=== PATIENT | female | born 1950 | race Caucasian/White ===

== ENCOUNTER 2024-08-04 10:09 | Inpatient (IN) ==
--- NOTE | 2024-08-04 10:34 | Emergency Department Note ---
Impression & Plan Vertigo ADMIT ED Provider Note HPI: History obtained from patient. The patient is a very pleasant 74-year-old female who presents the emergency department with a chief complaint of dizziness. Patient states for the last several days she has felt "off". She states that she is unsure how to describe this any further. Patient states this morning for the first time she experienced dizziness when she woke up, she states that the room was "spinning". Patient states that this did seem to improve throughout the neck several hours however she continued to feel abnormal and therefore came to the ER to be assessed. Patient denies any nausea or vomiting, on arrival here to the ED the patient does not display any obvious focal deficits, her blood pressure is elevated at 205/85 but she is otherwise hemodynamically stable and in no acute distress. ROS: - Per HPI Differential Diagnosis: Peripheral vertigo, posterior circulation stroke/central vertigo, hypertensive encephalopathy/headache, intracranial hemorrhage, tension headache, amongst other potential pathologies. *Outpatient medications and allergy history reviewed. PE: General: Alert HEENT: Normocephalic, trachea midline Eyes: Extraocular eye movement is intact, no scleral erythema Pulmonary: Clear to auscultation bilaterally, no wheezing Cardio: Regular rate and rhythm GI: Abdomen is soft to palpation : No suprapubic tenderness MSK: No evidence of trauma or malformation of the extremities, no edema Skin: No evidence of rash Neuro: Alert, no focal deficits, no ataxia on buvqwv-vo-wkvs testing bilaterally, symmetrical facial movements are appreciated Psychiatric: Cooperative INDEPENDENT INTERPRETATIONS: residential monitor: (As interpreted by myself): - An order was placed for continuous cardiac monitoring - Patient was noted to be in sinus rhythm with a rate of 85 EKG: (As interpreted by myself): Rate: 89 Rhythm: Normal sinus rhythm Intervals: Within normal limits ST changes: No ST elevation Time: 1032 Chest x-ray: (As interpreted by myself): No acute disease Interventions provided in ED: -IV fluid bolus, meclizine, IV labetalol Medical Decision Making: IV was established and lab work obtained, patient was placed on surveillance monitor. Lab work shows no leukocytosis, hemoglobin is stable at 16.2, platelet count is normal, CMP does not show any evidence of any critical findings. Blood glucose level is 202, troponin is negative. Chest x-ray does not show any evidence of acute disease, CT angiography of the head and neck were obtained and did not show any evidence of any large vessel occlusion/stroke or evidence of intracranial hemorrhage. On reevaluation the patient remains hypertensive, she was ordered a dose of IV labetalol. Upon multiple attempt to ambulate to the bathroom the patient required assistance and stated that she still felt lightheaded and dizzy. Given this I do feel that she should be admitted to the hospital for further workup and management. Patient has been symptomatic overall for the past 4 days. I would not consider her a candidate for any aggressive therapy should this be a stroke such as lysis or thrombectomy. I discussed the patient's presentation with the on-call hospitalist for [facility], Dr. Rowley, and the patient was placed for admission in stable condition. Consultants/Discussions held with other healthcare providers: -Hospitalist, Dr. Rowley Disposition discussion held by myself with: -Patient and patient's at the bedside Diagnosis: 1. Vertigo, acute, intractable 2. Hypertensive urgency, acute Disposition: Admission Santosh Dale DO Emergency Medicine Past Med/Surg History Problem List (Updated 08/04/24 @ 14:59 by Santosh Dale DO) Hypertensive urgency Vertigo (Acute) Medical History (Updated 08/04/24 @ 14:59 by Santosh Dale DO) DM (diabetes mellitus), type 2 Fracture of orbital floor, blow-out, right, closed Arthritis Irritable bowel syndrome Obesity Ovarian dysfunction Carpal tunnel syndrome CRP elevated Fatty liver Diverticulosis of colon Metabolic syndrome Arterial ischemic stroke, chronic Limb pain Liver function test abnormality (04/09/12) Near syncope (04/09/12) Neck pain Transient ischemic attack Hypertension High cholesterol No significant family history No significant medical problems Surgical History H/O: hysterectomy (04/09/12) Hx of tonsillectomy (04/09/12) S/P cholecystectomy S/P hysterectomy Family History Aunt Breast cancer Diabetes Mother Cancer Social History Smoking Status: Never smoker Hx Alcohol Use: No Hx Substance Use: No Preferred Language: Georgian marital status: Feels Safe at Home: Yes Allergies Allergies Allergy/AdvReac Type Severity Reaction Status Date / Time Cipro Allergy Intermediate UNKNOWN Verified 04/09/12 10:34 ciprofloxacin Allergy Intermediate Rash Verified 04/13/20 11:04 felodipine Allergy Intermediate HOT FLASHES Verified 04/13/20 11:04 hydralazine Allergy Intermediate HOT FLASHES Verified 04/13/20 11:04 Penicillins Allergy Intermediate Rash Verified 04/13/20 11:04 Sulfa (Sulfonamide Allergy Intermediate Rash Verified 04/13/20 11:04 Antibiotics) amoxicillin Allergy Verified 04/18/20 10:08 simvastatin Allergy Rash Unverified 04/13/20 11:04 Home Meds Home Medications Medication Instructions Recorded Confirmed amlodipine 10 mg tablet 10 mg PO HS 06/11/18 08/04/24 empagliflozin 25 mg tablet 25 mg PO QAM 06/11/18 08/04/24 (Jardiance) losartan 100 mg tablet 100 mg PO QAM 06/11/18 08/04/24 metformin 500 mg tablet 1,000 mg PO BIDM 06/11/18 08/04/24 Beatrice Xl 2 cap PO QAM 10/10/19 08/04/24 dqloidvn-jkkc-stsxb acid 200 1 tab PO QAM 10/10/19 08/04/24 mcg-herbal no.293 37.5 mg chewable tablet (Alive Women's Gummy Vitamin) aspirin 81 mg tablet,delayed 81 mg PO QAM 04/13/20 08/04/24 release diclofenac sodium 1 % topical gel 2 g topical DIRECTED PRN joint 04/13/20 08/04/24 pain atorvastatin 10 mg tablet 10 mg PO .Q OTHER DAY 08/04/24 08/04/24 dulaglutide 3 mg/0.5 mL 3 mg subcut WK 08/04/24 08/04/24 subcutaneous pen injector (Trulicity) metoprolol succinate 25 mg 25 mg PO DAILY 08/04/24 08/04/24 tablet,extended release 24 hr Results & Data (ED) Vital Signs Vital Signs - 24 hr 08/04/24 10:12 08/04/24 10:45 08/04/24 14:13 Temperature 36.8 C Temperature Source Skin Pulse Rate 97 H 87 Pulse Rate [Apical] 88 Respiratory Rate 18 20 Respiratory Effort / Characteristics Respiratory Depth Normal Respiratory Pattern Blood Pressure 205/85 H Blood Pressure [Right Arm] 192/88 H Blood Pressure Mean 125 Blood Pressure Mean [Right Arm] 122 Pulse Oximetry 96 96 Oxygen Delivery Method Room Air Room Air Sepsis Recent Fever Within 48 Hours No Sepsis New/Unexplained Change in Mental Status No Sepsis Action Taken by Nursing No Action Required 08/04/24 14:14 08/04/24 14:47 Temperature Temperature Source Pulse Rate 88 Pulse Rate [Apical] 79 Respiratory Rate 20 Respiratory Effort / Characteristics Non-Labored Spontaneous Respiratory Depth Normal Respiratory Pattern Regular Blood Pressure Blood Pressure [Right Arm] 160/75 H Blood Pressure Mean Blood Pressure Mean [Right Arm] 103 Pulse Oximetry 96 Oxygen Delivery Method Room Air Sepsis Recent Fever Within 48 Hours Sepsis New/Unexplained Change in Mental Status Sepsis Action Taken by Nursing Laboratory Data 08/04/24 10:49 08/04/24 10:49 Lab Results 08/04/24 08/04/24 Range/Units 10:15 10:49 WBC 9.43 (4.8-10.8) K/ul RBC 5.19 (4.20-5.40) M/uL Hgb 16.2 H (12.0-16.0) g/dl Hct 47.3 H (37.0-47.0) % MCV 91.1 (80.0-100.0) fL MCH 31.2 (25.0-34.0) pg MCHC 34.2 (32.0-36.0) g/dL RDW Std Deviation 44.8 (36.4-46.3) fL RDW Coeff of Chaya 13.2 (11.5-14.5) % Plt Count 205 (130-400) K/uL MPV 9.4 (9.4-12.4) fL Immature Gran % (Auto) 0.3 % Neut % (Auto) 69.1 % Lymph % (Auto) 23.5 % Kimble % (Auto) 5.1 % Eos % (Auto) 1.6 % Baso % (Auto) 0.4 % Neut # (Auto) 6.51 H (1.40-6.50) K/uL Lymph # (Auto) 2.22 (1.20-3.40) K/uL Kimble # (Auto) 0.48 (0.11-0.59) K/uL Eos # (Auto) 0.15 (0.00-0.50) K/uL Baso # (Auto) 0.04 (0.00-0.20) K/uL Immature Gran # (Auto) 0.03 (0.01-0.20) K/uL Sodium 140 (136-145) mmol/L Potassium 4.3 (3.5-5.1) mmol/L Chloride 108 H (98-107) mmol/L Carbon Dioxide 23 (21-32) mmol/L Anion Gap 9 (3-11) BUN 18 (6-23) mg/dl Creatinine 0.68 (0.6-1.2) mg/dl Est Cr Clr Drug Dosing 80.5 ml/min eGFR 90.77 BUN/Creatinine Ratio 26.5 H (10-20) Glucose 202 H (70-99(Fasting)) mg/dl POC Glucose 222 H (70-99) mg/dl Calcium 9.5 (8.6-10.3) mg/dl Total Bilirubin 0.5 (0.2-1.0) mg/dl AST 16 (13-39) U/L ALT 21 (7-52) U/L Alkaline Phosphatase 59 (34-104) U/L Troponin I High Sens < 2.3 (0-14) pg/ml Total Protein 7.5 (6.0-8.3) gm/dl Albumin 4.6 (3.4-5.0) gm/dl Globulin 2.9 (2.5-4.0) gm/dl Albumin/Globulin Ratio 1.6 (0.9-2) Lipase 31 (11-82) U/L Administered Medications Discontinued Medications Aspirin (Aspirin Chew 324 Mg) 324 mg PO NOW STA Stop: 08/04/24 13:52 Last Admin: 08/04/24 14:01 Dose: 324 mg Documented By: CAP Sodium Chloride (Nss) 1,000 mls @ 999 mls/hr IV .Q1H1M ONE Stop: 08/04/24 11:31 Last Infusion: 08/04/24 13:06 Dose: Infused Documented By: Admin: 08/04/24 10:56 Dose: 999 mls/hr Documented By: CARIDAD Ioversol (Optiray 320 125ml) 119 ml IV ONCE ONE Stop: 08/04/24 12:11 Last Admin: 08/04/24 12:11 Dose: 119 ml Documented By: BRLuis F Labetalol HCl (Labetalol Hcl Iv 5 Mg/Ml 20ml) 10 mg IV NOW STA Stop: 08/04/24 14:00 Last Admin: 08/04/24 14:14 Dose: 10 mg Documented By: CARIDAD Meclizine HCl (Meclizine Hcl 25 Mg Tab) 25 mg PO NOW STA Stop: 08/04/24 10:32 Last Admin: 08/04/24 10:56 Dose: 25 mg Documented By: CARIDAD Imaging Data Radiologist's Impression: Chest X-Ray 08/04/24 10:17 XR chest 1V portable CLINICAL HISTORY: Hypertension. COMPARISON STUDY: Chest radiograph April 13, 2020. FINDINGS: Lung volumes are normal. Lungs are clear. There is no pneumothorax or pleural effusion. Cardiomegaly is unchanged. Mediastinal contours are normal. There is no evidence for pulmonary edema. IMPRESSION: No acute cardiopulmonary findings. No change in appearance of the chest. ACT 112: Negative or not required by law. Electronically signed by: Colt Frazier M.D. 08/04/2024 11:07 AM Head CTA 08/04/24 10:30 CT angio head wo/w CLINICAL HISTORY: dizzy/vertigo COMPARISON STUDY: MRI of the brain February 03, 2014. Head CT April 23, 2020. MRA of the head April 09, 2012. TECHNIQUE: Unenhanced and arterial phase imaging of the head was performed. Intravenous injection of 119 cc of Optiray 320 IV was uneventful. Sagittal and coronal reformats were viewed as well as maximal intensity projections on an independent 3-D workstation. A dose lowering technique was utilized adhering to the principles of ALARA. FINDINGS: No acute intracranial hemorrhage, midline shift or mass effect is present. Ventricular system is unremarkable. Basal cisterns are patent. There are no findings to suggest acute dural sinus thrombosis or acute territorial infarct. Bilateral M1 and M2 segments are patent. 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 There is persistence of the left posterior cerebral artery. Left vertebral artery is diminutive on a congenital basis. Basilar artery is patent. No intracranial vessel occlusion is identified. IMPRESSION: 1. No acute intracranial findings. 2. No intracranial vessel occlusion. No intracranial aneurysm. ACT 112: Negative or not required by law. Electronically signed by: Colt Frazier M.D. 08/04/2024 12:38 PM Neck CTA 08/04/24 10:30 CT ANGIOGRAPHY OF THE NECK WITH CONTRAST CLINICAL HISTORY: dizzy/vertigo COMPARISON STUDY: Carotid ultrasound November 26, 2013. Technique: CT angiography of the carotid and vertebral arteries was obtained using Optiray and 3D reconstruction on an independent workstation. NASCET criteria was utilized. Automated exposure control was utilized for the study. A dose lowering technique was utilized adhering to the principles of ALARA. Findings: Visualized portions of the lung apices are unremarkable. Is no cervical lymphadenopathy. There are no cervical spine fractures. The bilateral common carotid, cervical internal carotid and vertebral arteries are patent. The right vertebral artery is dominant. The left vertebral artery is diminutive on a congenital basis. There is mild plaque within the carotid bifurcations without stenosis. IMPRESSION: 1. No stenosis or dissection within the bilateral common carotid, cervical internal carotid or vertebral arteries. 2. 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 Dominant, patent right vertebral artery. ACT 112: Negative or not required by law. Electronically signed by: Colt Frazier M.D. 08/04/2024 12:32 PM Discharge Plan Visit Data Chief Complaint: Hypertension Stated Complaint: HYPERGLYCEMIA, HIGH BP, DIZZY ED Provider: Santosh Dale Discharge Problem: Vertigo Forms Stand Alone Forms: My [facility] Prescriptions Prescriptions: No Action Alive Women's Gummy Vitamin 200 mcg- 37.5 mg Tablet,Chewable 1 tab PO QAM Rx Instructions: 08/04-otc unable to verify Beatrice Xl 2 cap PO QAM Rx Instructions: 08/04-otc unable to verify aspirin 81 mg Tablet,Delayed Release (Dr/Ec) 81 mg PO QAM Rx Instructions: 08/04-otc unable to verify diclofenac sodium 1 % gel 2 g TOPICAL DIRECTED PRN (Reason: joint pain) Rx Instructions: 08/04-otc unable to verify/no fill history metformin 500 mg Tablet 1,000 mg PO BIDM amlodipine 10 mg Tablet 10 mg PO HS losartan 100 mg Tablet 100 mg PO QAM Jardiance 25 mg Tablet 25 mg PO QAM atorvastatin 10 mg tablet 10 mg PO .Q OTHER DAY metoprolol succinate 25 mg tablet extended release 24 hr 25 mg PO DAILY Trulicity 3 mg/0.5 mL pen injector 3 mg subcut WK Rx Instructions: Wednesdays Referrals Referrals: Virgen Woodard MD [Primary Care Provider] -
[2024-08-04] MEDS: MECLIZINE HCL 25 MG TAB PO STA (10:56)
[2024-08-04] MEDS: SODIUM CHLORIDE 0.9% 1,000 ML IV ONE (10:56)
--- NOTE | 2024-08-04 11:08 | XRay Report ---
XR chest 1V portable CLINICAL HISTORY: Hypertension. COMPARISON STUDY: Chest radiograph April 13, 2020. FINDINGS: Lung volumes are normal. Lungs are clear. There is no pneumothorax or pleural effusion. Car diomegaly is unchanged. Mediastinal contours are normal. There is no evidence for pulmonary edema. IMPRESSION: No acute cardiopulmonary findings. No change in appearance of the chest. ACT 112: Negative or not required by law. Electronically signed by: Colt Frazier M.D. 08/04/2024 11:07 AM
[2024-08-04 11:12] LABS: Basophils # (auto) 0.04 K/uL (0.00-0.20); Basophils % (auto) 0.4 %; Eosinophils # (auto) 0.15 K/uL (0.00-0.50); Eosinophils % (auto) 1.6 %; Hematocrit (blood only) 47.3 % (37.0-47.0); Hemoglobin 16.2 g/dl (12.0-16.0); Immature Granulocytes # (auto) 0.03 K/uL (0.01-0.20); Immature Granulocytes % (auto) 0.3 %; Lymphocytes # (auto) 2.22 K/uL (1.20-3.40); Lymphocytes % (auto) 23.5 %; Mean Corpuscular Hemoglobin 31.2 pg (25.0-34.0); Mean Corpuscular Hgb Conc 34.2 g/dL (32.0-36.0); Mean Corpuscular Volume 91.1 fL (80.0-100.0); Mean Platelet Volume 9.4 fL (9.4-12.4); Monocytes # (auto) 0.48 K/uL (0.11-0.59); Monocytes % (auto) 5.1 %; Neutrophils # (auto) 6.51 K/uL (1.40-6.50); Neutrophils % (auto) 69.1 %; Platelet Count 205 K/uL (130-400); RDW Coefficient of Variation 13.2 % (11.5-14.5); RDW Standard Deviation 44.8 fL (36.4-46.3); Red Blood Count 5.19 M/uL (4.20-5.40); White Blood Count 9.43 K/ul (4.8-10.8)
[2024-08-04 11:20] LABS: Alanine Aminotransferase 21 U/L (7-52); Albumin Globulin Ratio 1.6 (0.9-2); Albumin Level 4.6 gm/dl (3.4-5.0); Alkaline Phosphatase 59 U/L (34-104); Anion Gap 9 (3-11); Aspartate Aminotransferase 16 U/L (13-39); BUN Creatinine Ratio 26.5 (10-20); Bilirubin,Total 0.5 mg/dl (0.2-1.0); Blood Urea Nitrogen 18 mg/dl (6-23); Calcium 9.5 mg/dl (8.6-10.3); Carbon Dioxide 23 mmol/L (21-32); Chloride 108 mmol/L (98-107); Creatinine Clr Calc Pharmacy 80.5 ml/min; Globulin 2.9 gm/dl (2.5-4.0); Glucose 202 mg/dl (70-99(Fasting)); Lipase 31 U/L (11-82); Potassium 4.3 mmol/L (3.5-5.1); Sodium 140 mmol/L (136-145); Total Protein 7.5 gm/dl (6.0-8.3)
[2024-08-04 11:26] LABS: Troponin I High Sensitivity < 2.3 pg/ml (0-14)
[2024-08-04] MEDS: OPTIRAY 320 125ml IV ONE (12:11)
--- NOTE | 2024-08-04 12:35 | CT Scan Report ---
CT ANGIOGRAPHY OF THE NECK WITH CONTRAST CLINICAL HISTORY: dizzy/vertigo COMPARISON STUDY: Carotid ultrasound November 26, 2013. Technique: CT angiography of the carotid and vertebral arteries was obtained using Optiray and 3D rec onstruction on an independent workstation. NASCET criteria was utilized. Automated exposure control was utilized for the study. A dose lowering technique was utilized adhering to the principles of ALA RA. Findings: Visualized portions of the lung apices are unremarkable. Is no cervical lymphadenopathy. Th ere are no cervical spine fractures. The bilateral common carotid, cervical internal carotid and vert ebral arteries are patent. The right vertebral artery is dominant. The left vertebral artery is dimin utive on a congenital basis. There is mild plaque within the carotid bifurcations without stenosis. IMPRESSION: 1. No stenosis or dissection within the bilateral common carotid, cervical internal carotid or verteb ral arteries. 2. 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 Dominant, patent right vertebral artery. ACT 112: Negative or not required by law. Electronically signed by: Colt Frazier M.D. 08/04/2024 12:32 PM
--- NOTE | 2024-08-04 12:41 | CT Scan Report ---
CT angio head wo/w CLINICAL HISTORY: dizzy/vertigo COMPARISON STUDY: MRI of the brain February 03, 2014. Head CT April 23, 2020. MRA of the head Decem juan 2011. TECHNIQUE: Unenhanced and arterial phase imaging of the head was performed. Intravenous injection of 119 cc of Optiray 320 IV was uneventful. Sagittal and coronal reformats were viewed as well as daniel l intensity projections on an independent 3-D workstation. A dose lowering technique was utilized adh ering to the principles of ALARA. FINDINGS: No acute intracranial hemorrhage, midline shift or mass effect is present. Ventricular syst em is unremarkable. Basal cisterns are patent. There are no findings to suggest acute dural sinus thr ombosis or acute territorial infarct. Bilateral M1 and M2 segments are patent. 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 There is persistenc e of the left posterior cerebral artery. Left vertebral artery is diminutive on a congenital basis. B asilar artery is patent. No intracranial vessel occlusion is identified. IMPRESSION: 1. No acute intracranial findings. 2. No intracranial vessel occlusion. No intracranial aneurysm. ACT 112: Negative or not required by law. Electronically signed by: Colt Frazier M.D. 08/04/2024 12:38 PM
--- NOTE | 2024-08-04 14:00 | History & Physical Report ---
Date of Service August 04, 2024 Assessment & Plan (1) Vertigo: (2) Hypertensive urgency: Plan: This is a 74yo F with a PMH of DM II, HTN, history of CVA and other medical problems listed below who presents with vertigo that started this AM. Vertigo symptoms improved since arrival but initial BP elevated at 205/85 despite taking PO Toprol and losartan this AM Remote h/o CVA 20+ years ago without residual deficits Afebrile, labwork essentially unremarkable except for elevated BSG 202, high sensitivity troponin within normal limits CTA head with no acute intracranial findings. No intracranial vessel occlusion. No intracranial aneurysm. CTA neck with no stenosis or dissection within the bilateral common carotid, cervical internal carotid or vertebral arteries. 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 Dominant, patent right vertebral artery. Obtain MRI brain, echo with bubble study for further stroke evaluation Neuro checks, PT/OT/speech evaluations Continue aspirin and statin - consider increasing statin dose Given 10mg IV labetalol in ED, which improved BP to 160/75 Continue home Toprol, losartan, amlodipine HS and monitor closely (3) Metabolic syndrome: (4) DM (diabetes mellitus), type 2: Plan: A1c 8.1 in Mar 2024, repeat in AM Hold home agents SSI while in-patient BSG AC HS (5) Fatty liver: Plan: Liver enzymes all WNL. Continue monitoring with PCP DVT Ppx: SQ heparin Code status: FULL PCP: Radha Dispo: Admitted to PCU Patient seen in collaboration with Dr. Rowley. Please see addendum. I spent a total of 65 minutes coordinating, documenting, and providing care for this patient excluding time spent in the performance of separately billed services or time spent by another provider/QHP. History of Present Illness Chief Complaint: lightheadedness, vertigo Primary Care Provider: Virgen Woodard MD This is a 74yo F with a PMH of DM II, HTN, history of CVA and other medical problems listed below who presents with dizziness. She woke up with feeling of room spinning when she stood up. Had to lay back down and symptoms improved after 10 minutes. No associated N/V/abd pain. Took her BP at home after this event and BP 187/75, which is high for her. States she is compliant with BP meds and took her AM Toprol and losartan today as well as amlodipine last night. Came to ED for further evaluation. No CP, palpitations, N or V in the past few days. [place] a bit warm on Saturday but did not take her temperature and has since felt normal. Remote history of CVA 20 years ago without residual deficit. Ambulating well but does have a walker and cane at home to use as needed and lives with her . In ED, Blood pressure is elevated at 205/85 but she is otherwise hemodynamically stable and in no acute distress. Given 10mg IV Labetalol. Ambulated by nursing staff and noted to be unsteady in bathroom. Allergies Allergy/AdvReac Type Severity Reaction Status Date / Time Cipro Allergy Intermediate UNKNOWN Verified 04/09/12 10:34 ciprofloxacin Allergy Intermediate Rash Verified 04/13/20 11:04 felodipine Allergy Intermediate HOT FLASHES Verified 04/13/20 11:04 hydralazine Allergy Intermediate HOT FLASHES Verified 04/13/20 11:04 Penicillins Allergy Intermediate Rash Verified 04/13/20 11:04 Sulfa (Sulfonamide Allergy Intermediate Rash Verified 04/13/20 11:04 Antibiotics) amoxicillin Allergy Verified 04/18/20 10:08 simvastatin Allergy Rash Unverified 04/13/20 11:04 Home Medications Medication Instructions Recorded Confirmed Type amlodipine 10 mg tablet 10 mg PO HS 06/11/18 08/04/24 History empagliflozin 25 mg tablet 25 mg PO QAM 06/11/18 08/04/24 History (Jardiance) losartan 100 mg tablet 100 mg PO QAM 06/11/18 08/04/24 History metformin 500 mg tablet 1,000 mg PO BIDM 06/11/18 08/04/24 History [place] Xl 2 cap PO QAM 10/10/19 08/04/24 History tshzvtzg-xuvd-mlqsx acid 200 1 tab PO QAM 10/10/19 08/04/24 History mcg-herbal no.293 37.5 mg chewable tablet (Alive Women's Gummy Vitamin) aspirin 81 mg tablet,delayed 81 mg PO QAM 04/13/20 08/04/24 History release diclofenac sodium 1 % topical gel 2 g topical DIRECTED PRN joint 04/13/20 08/04/24 History pain atorvastatin 10 mg tablet 10 mg PO .Q OTHER DAY 08/04/24 08/04/24 History dulaglutide 3 mg/0.5 mL 3 mg subcut WK 08/04/24 08/04/24 History subcutaneous pen injector (Trulicity) metoprolol succinate 25 mg 25 mg PO DAILY 08/04/24 08/04/24 History tablet,extended release 24 hr Past Med/Surg History Problem List (Updated 08/04/24 @ 14:59 by Santosh Dale DO) Hypertensive urgency Vertigo (Acute) Medical History (Updated 08/04/24 @ 14:59 by Santosh Dale DO) DM (diabetes mellitus), type 2 Fracture of orbital floor, blow-out, right, closed Arthritis Irritable bowel syndrome Obesity Ovarian dysfunction Carpal tunnel syndrome CRP elevated Fatty liver Diverticulosis of colon Metabolic syndrome Arterial ischemic stroke, chronic Limb pain Liver function test abnormality (04/09/12) Near syncope (04/09/12) Neck pain Transient ischemic attack Hypertension High cholesterol No significant family history No significant medical problems Surgical History H/O: hysterectomy (04/09/12) Hx of tonsillectomy (04/09/12) S/P cholecystectomy S/P hysterectomy Family History Aunt Breast cancer Diabetes Mother Cancer Social History Smoking Status: Never smoker Hx Alcohol Use: No Hx Substance Use: No Preferred Language: Chinese marital status: Feels Safe at Home: Yes Review of Systems Review of Systems: At least ten systems reviewed and negative except as noted in the HPI. Physical Exam Physical Exam: Please see Dr. Rowley' addendum for physical exam. Results & Data Results & Data Vital Signs (Past 12 Hours) Vital Signs Temp Pulse Resp BP Pulse Ox O2 Del Method 08/04/24 10:45 87 08/04/24 10:12 36.8 C 97 H 18 205/85 H 96 Room Air Laboratory Results Short CBC 08/04/24 Range/Units 10:49 WBC 9.43 (4.8-10.8) K/ul Hgb 16.2 H (12.0-16.0) g/dl Hct 47.3 H (37.0-47.0) % Plt Count 205 (130-400) K/uL BMP 08/04/24 10:49 Sodium 140 Potassium 4.3 Chloride 108 H Carbon Dioxide 23 BUN 18 Creatinine 0.68 Glucose 202 H Calcium 9.5 Liver Function 08/04/24 Range/Units 10:49 Total Bilirubin 0.5 (0.2-1.0) mg/dl AST 16 (13-39) U/L ALT 21 (7-52) U/L Alkaline Phosphatase 59 (34-104) U/L Albumin 4.6 (3.4-5.0) gm/dl Diagnostic Findings Chest X-Ray 08/04/24 10:17 XR chest 1V portable CLINICAL HISTORY: Hypertension. COMPARISON STUDY: Chest radiograph April 13, 2020. FINDINGS: Lung volumes are normal. Lungs are clear. There is no pneumothorax or pleural effusion. Cardiomegaly is unchanged. Mediastinal contours are normal. There is no evidence for pulmonary edema. IMPRESSION: No acute cardiopulmonary findings. No change in appearance of the chest. ACT 112: Negative or not required by law. Electronically signed by: Colt Frazier M.D. 08/04/2024 11:07 AM Head CTA 08/04/24 10:30 CT angio head wo/w CLINICAL HISTORY: dizzy/vertigo COMPARISON STUDY: MRI of the brain February 03, 2014. Head CT April 23, 2020. MRA of the head April 09, 2012. TECHNIQUE: Unenhanced and arterial phase imaging of the head was performed. Intravenous injection of 119 cc of Optiray 320 IV was uneventful. Sagittal and coronal reformats were viewed as well as maximal intensity projections on an independent 3-D workstation. A dose lowering technique was utilized adhering to the principles of ALARA. FINDINGS: No acute intracranial hemorrhage, midline shift or mass effect is present. Ventricular system is unremarkable. Basal cisterns are patent. There are no findings to suggest acute dural sinus thrombosis or acute territorial infarct. Bilateral M1 and M2 segments are patent. 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 There is persistence of the left posterior cerebral artery. Left vertebral artery is diminutive on a congenital basis. Basilar artery is patent. No intracranial vessel occlusion is identified. IMPRESSION: 1. No acute intracranial findings. 2. No intracranial vessel occlusion. No intracranial aneurysm. ACT 112: Negative or not required by law. Electronically signed by: Colt Frazier M.D. 08/04/2024 12:38 PM Neck CTA 08/04/24 10:30 CT ANGIOGRAPHY OF THE NECK WITH CONTRAST CLINICAL HISTORY: dizzy/vertigo COMPARISON STUDY: Carotid ultrasound November 26, 2013. Technique: CT angiography of the carotid and vertebral arteries was obtained using Optiray and 3D reconstruction on an independent workstation. NASCET criteria was utilized. Automated exposure control was utilized for the study. A dose lowering technique was utilized adhering to the principles of ALARA. Findings: Visualized portions of the lung apices are unremarkable. Is no cervical lymphadenopathy. There are no cervical spine fractures. The bilateral common carotid, cervical internal carotid and vertebral arteries are patent. The right vertebral artery is dominant. The left vertebral artery is diminutive on a congenital basis. There is mild plaque within the carotid bifurcations without stenosis. IMPRESSION: 1. No stenosis or dissection within the bilateral common carotid, cervical internal carotid or vertebral arteries. 2. 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 Dominant, patent right vertebral artery. ACT 112: Negative or not required by law. Electronically signed by: Colt Frazier M.D. 08/04/2024 12:32 PM Supervising Physician Co-Signing Physician Notes I have seen and discussed the case with the collaborating advanced practitioner. I agree with the above H&P. I have reviewed and confirmed the patients medical history, the findings on physical examination, and the patients diagnosis and treatment plan with Joaquim OTOOLE and agree with the information documented. Darlene Torres is a 73 year old female with hx of DMII, HTN, CVAno residual weakness,Hepatic steatosis, IBS, DJD, Diverticulosis, Essential tremoradmitted for evaluation of stroke like symptoms. Patient not a TPA candidate given outside of window. Patient work with severe vertigo this am lasting for 10 minutes. Her pressure this am was in the 180s. After taking her medications, she presented to the ED due to feeling off. She denies any focal deficits or weakness. She denies any nausea or vision changes. She has no active vertigo. She has a remote history of CVA over twenty years ago. GENERAL APPEARANCE: AxOx4, generally well-appearing F, no acute distress. HEENT: NC, AT. MMM. EOMI, clear conjunctiva, oropharynx clear. NECK: Supple without lymphadenopathy. No stiffness or restricted ROM. HEART: Normal rate and regular rhythm, normal S1/S1, no m/r/g LUNGS: CTAB, moving air well. No crackles or wheezes are heard. ABDOMEN: Soft, nontender, nondistended with good bowel sounds heard. BACK: No CVAT, no obvious deformity. EXTREMITIES: Without cyanosis, clubbing or edema. NEUROLOGICAL: Grossly nonfocal. Alert and oriented, moving all 4 extremities. No nystagmus. CN not formally tested but appear grossly intact. Skin: Warm and dry without any rash. #Strokelike symptoms #Severe vertigo given presentation and seveity and abrupt nature of vertigo will opt for MRI to r/o any basilar stroke monitor on tele #HTN urgency s/p labetolol with reduction to 150s - on amlodipine 10mg daily, and losartan 100mg daily and metoprolol ER 25mg daily - at home BP: 130/80s Resume home meds, careful inpatient adjustment as appropriate #DMII: - on jardiance 25mg daily, Trulicity 3mg weekly, Metformin 1000mg BID - compliant with meds rest of plan as above I spent a total of 25 minutes coordinating, documenting, and providing care for this patient excluding time spent in the performance of separately billed services. All of the aforementioned completed outside of collaborating with the assigned advanced practitioner for a full treatment plan. I have reviewed the advanced practitioner's documentation, and I agree with, and take responsibility for the plan of care
[2024-08-04] MEDS: ASPIRIN CHEW 324 MG PO STA (14:01)
[2024-08-04] MEDS: LABETALOL HCL IV 5 MG/ML 20ML IV STA (14:14)
[2024-08-04] MEDS ORDERED: GLUCOSE 40% GEL 15 GM TUBE PO PRN (14:20)
[2024-08-04] MEDS ORDERED: DEXTROSE 50% 50 ML SYRINGE IV PRN (14:20)
[2024-08-04] MEDS ORDERED: GLUCAGON FOR INJ 1 MG VIAL SQ PRN (14:20)
[2024-08-04] MEDS ORDERED: GLUCOSE 10 TAB/TUBE PO PRN (14:20)
[2024-08-04] MEDS ORDERED: CARBOHYDRATES FOR HYPOGLYCEMIA PO PRN (14:20)
[2024-08-04] MEDS ORDERED: DICLOFENAC SOD 1% GEL 100 GM TUBE EXT PRN (16:47)
[2024-08-04] MEDS ORDERED: PHARMACIST DISCHARGE MED REC CONSULT PRN (16:47)
[2024-08-04] MEDS ORDERED: POLYETHYLENE (MIRALAX) 17 GM PACK PO PRN (16:47)
[2024-08-04] MEDS ORDERED: ACETAMINOPHEN 325 MG TAB PO PRN (16:47)
[2024-08-04] MEDS ORDERED: ONDANSETRON INJ 2 MG/ML 2 ML VIAL IV PRN (16:47)
--- OUTSIDE RECORDS SUMMARY | 2024-08-04 17:21 | External Medical Summary | Summary of Care ---
Author Name Unknown Organization [facility] Address [address] [facility] [place] [address] Phone [phone] Care Team Providers Care Fisher Clam Name Role Phone Virgen Woodard MD Primary Care Provide r Reason for Visit * Reason Comments eRx-Medication Refill Encounter Details Date Type Department Care Team (Late st Contact Info) Description 06/10/2024 Refill Family Medicine [address] [place] [phone] Virgen Woodard MD [address] [place] [address] [place] [address] Type 2 diabetes mellitus with hemoglobin A1c goal of less than 7.5% ([facility]) Allergies Active Allergy Reactions Criticality Noted Date Comments Amoxicillin 04/10/2004 Facial swelling Ciprofloxacin 09/14/2008 Abdominal cramps Felodipine Cr 11/17/2008 RED ALL OVER Hydralazine Hcl 11/29/2008 rash Sulfa Antibiotics 10/15/2000 Septra gave bad lower abd. cramps documented as of this encounter (statuses as of 06/11/2024) Medications MULTI-DAY TABS OR one a day 0 10/16/19 01 Active Cholecalciferol (VITAMIN D3) 5000 UNITS Tablet Take 1 Capsule by mouth in the morning. Active Aspirin EC 81 MG Oral Tablet Delayed ReleaseIndications :Cerebrovascular disease, arteriosclerotic, post-stroke Take 1 Tablet (81 mg) by mouth in the morning. 100 Tablet 3 03/28/20 22 Active Hair/Skin/Nails Oral Tablet Take 1 Tablet by mouth in the morning. Active Cinnamon 500 MG Oral Capsule Take 5 Capsules by mouth in the morning. Pt takes ceylon cinnamon 2500mg daily "nature's truth". Active MedCPUTouch Delica Lancets 33G Use to test blood sugars once daily DxE11.9 100 Each 3 02/13/20 23 Active OneTouch Verio Flex System Device Use to test blood sugars once daily DxE11.9 1 Each 02/13/20 23 Active OneTouch Verio In Vitro Strip (Glucose Blood) Use to test blood sugars once daily DxE11.9 100 Strip 3 04/11/20 23 Active SM Raymond-3 Oral Capsule Take by mouth. Active Empagliflozin 25 MG Oral Tablet (Jardiance)Indicat ions:Type 2 diabetes mellitus with hemoglobin A1c goal of less than 7.0% (HCC) TAKE ONE TABLET BY MOUTH EVERY MORNING 100 Tablet 3 4 12:31 PM EST 09/20/19 24 025 Active Trulicity 3 MG/0.5ML Subcutaneous Solution Pen-injector (Dulaglutide) Inject 3 mg under the skin once a week. 2 mL 11 11/20/19 24 Active Cetirizine HCl 10 MG Oral Tablet (ZyrTEC Allergy)Indication s:Allergic conjunctivitis, bilateral Take 1 Tablet by mouth in the morning. 30 Tablet 5 11/21/19 24 Active Losartan Potassium 100 MG Oral Tablet (Cozaar)Indication s:HTN, goal below 130/80 Take 1 Tablet by mouth in the morning. 90 Tablet 3 4 12:45 PM EST 01/13/20 24 Active Neomycin-Polymyxin -HC Ophthalmic SuspensionIndicati ons:Acute conjunctivitis of right eye, unspecified acute conjunctivitis type Instill 1 Drop into the right eye in the morning and 1 Drop at noon and 1 Drop in the evening and 1 Drop before bedtime. In affected eye while awake.. 7.5 mL 1 01/22/20 24 Active amLODIPine Besylate 10 MG Oral Tablet (Norvasc)Indicatio ns:HTN, goal below 140/90 TAKE ONE TABLET BY MOUTH EVERY EVENING AT BEDTIME 100 Tablet 3 4 6:38 PM EST 04/03/20 24 Active Atorvastatin Calcium 10 MG Oral Tablet (Lipitor)Indicatio ns:History of CVA (cerebrovascular accident) without residual deficits TAKE 1 TABLET BY MOUTH EVERY OTHER DAY 45 Tablet 1 04/11/20 24 Active Metoprolol Succinate ER 25 MG Oral Tablet Extended Release 24 Hour (toPROL XL)Indications:HTN , goal below 140/90 TAKE 1 TABLET BY MOUTH AT NIGHT AT BEDTIME 90 Tablet 3 4 1:43 PM EST 04/23/20 24 025 Active metFORMIN HCl 1000 MG Oral Tablet (Glucophage)Indica tions:Type 2 diabetes mellitus with hemoglobin A1c goal of less than 7.5% (HCC) TAKE ONE TABLET BY MOUTH TWICE DAILY 180 Tablet 1 06/11/19 25 Active metFORMIN HCl 1000 MG Oral Tablet (Glucophage)Indica tions:Type 2 diabetes mellitus with hemoglobin A1c goal of less than 7.5% (HCC) Take 1 Tablet by mouth 2 times a day with morning and evening meals. 180 Tablet 03/18/20 24 025 Discontinued documented as of this encounter (statuses as of 06/11/2024) Active Problems Problem Noted Date Diagnosed Date HTN, goal below 140/90 05/23/2023 Mixed hyperlipidemia 05/23/2023 History of CVA (cerebrovascular accident) 2022 Essential tremor 03/28/2022 Irritable bowel syndrome 01/13/2010 Type 2 diabetes mellitus wit h hemoglobin A1c goal of less than 7.5% 03/03/2009 Overview (08/30/2015): Per Diabetes Taxonomy. ICD-10 update of inactive term Diverticulosis of colon 09/13/2004 Overview (09/13/2004): Dr Munroe Metabolic syndrome 07/09/2003 PLANTAR FIBROMATOSIS Other ovarian dysfunction Prolapse of vaginal melendrez Overview (08/09/2015): ICD-10 update of inactive term Other allergic rhinitis Overview (02/26/2017): ICD-10 update of inactive term Generalized osteoarthritis FATTY LIVER documented as of this encounter (statuses as of 06/11/2024) Resolved Problems Problem Noted Date Diagnosed Date Resolved Date HTN, goal below 130/80 07/10/2022 04/26 /2023 HTN, goal below 140/80 12/24/201103/28 Overview: Per HTN Protocol #27. Obesity, morbid (more than 1 00 lbs over ideal weight or BMI > 40) 08/02/2009 03/28/2022 Overview (07/25/2015): Per Obesity Taxonomy ICD-10 update of inactive term HTN, goal below 130/80 04/07/200912/26 HTN, goal below 140/90 03/11/200904/07 Overview (03/11/2009): Modified per HTN Taxonomy. Cerebrovascular disease, art eriosclerotic, post-stroke 08/17/2008 08/29/2022 Overview (08/19/2008): Modified per CVA protocol #8 ADVANCE DIRECTIVE INFORMATION 05/14/2005 03/28/2022 Overview (05/14/2005): No, Advance Directive brochure given to patient at prior appointment. Female stress incontinence 05/14/2005 1 05/28/2021 Overview (05/14/2005): Ditropan started Type 2 diabetes mellitus wit h hemoglobin A1c goal of less than 7.0% 09/23/2003 03/03/2009 Overview (08/30/2015): Per Diabetes Taxonomy. ICD-10 update of inactive term Elevated C-reactive protein (CRP) 07/09/2003 03/28/2022 Overview (09/13/2004): 22.4 Tinea corporis 09/21/2002 03/28/2022 Morbid obesity, BMI not known 03/20/2002 08/02/2009 Overview (08/02/2009): Per Obesity Taxonomy BENIGN HYPERTENSION 03/11/20 Overview (03/11/2009): Modified per HTN Taxonomy. ABN INVOLUN MOVEMENT NEC 11/ JOINT PAIN-JT NEC 04/01/2023 Trigeminal neuralgia 022 CVA 08/19/2008 Overview (08/19/2008): Modified per CVA protocol #8 documented as of this encounter (statuses as of 06/11/2024) Immunizations Name Administration Dates Next Due COVID-19 mRNA, LNP-s, No Pre serve, 2-Dose Series (Pfizer) 03/08/2021,07/25/2020,07/04/2020 COVID-19, MRNA-LNP, PF, 30 M CG/0.3 mL, 12 YRS AND ABOVE, IM (PFIZER-Comirnaty) 01/28/2024 COVID-19, MRNA-LNP, PF, 50 M CG/0.5 mL, 12 YRS AND ABOVE, IM (MODERNA-Spikevax) 02/13/2023 Covid-19, Mrna, Lnp-s, Pf, B ivalent, 30 Mcg, IM, 12 yrs and above (Pfizer) 04/11/2022 H1N1 2009 Influenza, IM 06/13/2009 Season Influenza, Quad, PF, Adjuvanted, 65+ Yrs, IM (FLUAD) 02/18/2020 Seasonal Influenza Vac., MDV , IM, 0.5 mL (Fluzone) 01/05/2014,02/09/2010,01/25/2009,2007,03/07/2007,02/21/2006 Seasonal Influenza, High Dos e, Trivalent, PF, IM (Fluzone HD) 01/22/2024 Seasonal Influenza, PF, 6 M & above, IM , (FluLaval or Fluzone) 02/13/2018 Seasonal Influenza, Quadriva lent Hd (Fluzone Hd) 01/16/2023,02/09/2022,01/13/2021 Seasonal Influenza, Quadriva lent, No Preserve, IM 01/17/2017,02/22/2016,02/16/2015 Seasonal Influenza, Trivalen t, Adjuvanted, 65+ YRS, PF, (Fluad) 02/09/2019 TDAP, Age 7 and older, IM (Adacel) 03/07/2007 Zoster Vaccine Recombinant (Shingrix) 12/10/2022 ,10/10/2022 documented as of this encounter Social History Tobacco Use Types Packs/Day Years Used Date Smoking Tobacco: Never Smokeless Tobacco: Never Alcohol Use Standard Drinks/Week Comments No 0 (1 standard drink = 0.6 oz pur e alcohol) PHQ-2 Answer Date Recorded PHQ Adult Total Score 1 07/12/2023 Hunger Vital Sign Answer Date Recorded Within the past 12 months, y ou worried that your food would run out before you got the money to buy more. Never true 07/12/19 24 Within the past 12 months, t he food you bought just didn't last and you didn't have money to get more. Never true 07/12/2023 Childcare Answer Date Recorded Do you feel overwhelmed with taking care of a child, family member or friend? No 07/12/2023 Does your family need help f inding childcare? (Household - for ages 0-17 years) Not on file 07/12/2023 Clothing Answer Date Recorded Have you been unable to get clothing when it was really needed? No 07/12/2023 Is your family able to get c lothes or diapers when needed? (Household - for ages 0-17 years) Not on file 07/12/2023 Personal Safety Answer Date Recorded Do you feel unsafe or have concerns for your saf ety? No 07/12/2023 Do you have concerns for you r family's safety? (Household - for ages 0-17 years) Not on file 07/12/2023 Utilities Answer Date Recorded Do you have trouble paying y our heating, water, or electric bill? No 07/12/2023 Is your family able to pay t he heat, water, or electric bill? (Household - for ages 0-17 years) Not on file 07/12/2023 Does your family have access to good internet? (Household - for ages 0-17 years) Not on file 07/12/2023 Employment Status Answer Date Recorded Are you unemployed or without regular income? No 07/12/2023 Does the household have a re gular source of income? (Household - for ages 0-17 years) Not on file 07/12/2023 Social Connections Answer Date Recorded How often do you feel lonely or isolated from those around you? Sometimes 07/12/2023 Financial Resource Strain Answer Date R ecorded Do you have any trouble payi ng for your medications, or do you think you might in the future? No 07/12/2023 Does your family have troubl e paying for medicine? (Household - for ages 0-17 years) Not on file 07/12/2023 Transportation Needs Answer Date Record ed READ ONLY Do you have troubl e getting a ride to medical visits or work? Never True 07/12/2023 Does your family have a hard time getting a ride to doctors visits? (Household - for ages 0-17 years) Not on file 07/12/2023 Has lack of transportation k ept you from medical appointments, meetings, work, or from getting things needed for daily living? Check all that apply. (Adult - for ages 18 years and over) Not on file 07/12/2023 Do you (or your family) have trouble finding or paying for a ride (transportation)? (Household - for ages 0-17 years) Not on file 07/12/2023 Housing Stability Answer Date Recorded Do you currently live in a s helter or have no steady place to sleep at night? No 07/12/2023 READ ONLY Do you think you a re at risk of becoming homeless? No 07/12/2023 Does your family worry about paying for your home or becoming homeless? (Household - for ages 0-17 years) Not on file 0 07/12/2023 Are you homeless or worried that you might be in the future? (Adult - for ages 18 years and over) Not on file Are you (or your family) aurea eless or worried that you might be in the future? (Household - for ages 0-17 years) Not on file Food Insecurity Answer Date Recorded Do you need food for this week? No 07/12/2023 Are you able to get enough f ood for your family? (Household - for ages 0-17 years) Not on file 07/12/2023 Does your family need food t his week? (Household - for ages 0-17 years) Not on file 07/12/2023 Do you always have enough fo od for your family? (Household - for ages 0-17 years) Not on file 07/12/2023 Food Insecurity Answer Date Recorded Within the past 12 months, y ou worried that your food would run out before you got the money to buy more. Never true 07/12/19 24 Within the past 12 months, t he food you bought just didn't last and you didn't have money to get more. Never true 07/12/2023 Do you need food for this week? 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 on file Not on file Not on file documented as of this encounter Miscellaneous Notes * Telephone Encounter - Ihsan Licea RPh - 06/11/2024 8:22 AM EST Signed Prescriptions: Disp Refills metFORMIN HCl 1000 MG Oral Tablet (Glucoph*180 Ta*1 Sig: TAKE ONE TABLET BY MOUTH TWICE DAILYAuthorizing Provider: Edith WOODARD User: IHSAN LICEA documented in this encounter Plan of Treatment Upcoming Encounters Date Type Department Care Team (Late st Contact Info) Description 07/13/2024 10:00 AM EDT Nurse Only Ancillary [address] [place] [address] [place], Nurse Annual [address] [place] [address] 10/16/2024 10:40 AM EDT Office Visit Family Medicine [address] [place] [phone] Berine Stokes [address] [place] [address] 04/16/2025 10:40 AM EST Office Visit Family Medicine [address] [place] [phone] Virgen Woodard MD [address] [place] [address] [place] [phone] Scheduled Procedures Name Priority Associated Diagnoses Date/Ti me COLONOSCOPY FLEXIBLE PROXIMAL DIAGNOSTIC Recall History of colon polyps Health Maintenance Due Date Last Done Comments Hepatitis C Screening 07/24/1967 Cologuard 1994 Sigmoidoscopy 1994 Pneumococcal Vaccine: 50+ Years (2 of 2 - PCV) 05/26/2003 05/26/2002 Fecal Occult Blood Test 10/24/2004 10/25/2003 Hepatitis B Vaccine (1 of 3 - Risk 3-dose series) 2009 DTap/Tdap Vaccines (2 - Td or Tdap) 03/07/2017 03/07/2007 Adult Wellness Visit 07/11/2024 07/12/2023, 07/11/19 Depression Screening 07/11/2024 07/12/2023 Diabetic Foot Exam 07/11/2024 07/12/2023, 1 05/28/2021, 04/07/2009, Additional history exists Diabetic Eye Exam 08/15/2024 08/16/2023, , 08/14/2022, Additional history exists HbA1c 09/15/2024 03/18/2024, 050 12/2023, 05/23/2023, Additional history exists Albumin/Creatinine Ratio 03/18/202503/18/2 024, 05/23/2023, 01/17/2023, Additional history exists GFR 03/18/2025 03/18/2024, 050 12/2023, 05/23/2023, Additional history exists Mammogram 04/14/2025 04/14/2024, 0 10/2022, 04/10/2023, Additional history exists Colonoscopy 03/09/2027 03/09/2022, 08/2021, 06/09/2015, Additional history exists Colorectal Cancer Screening 03/09/2027 DXA Scan 03/28/2027 03/28/2020, 12/0 10/2016, 03/10/2013 Lipid Panel 03/18/2029 03/18/2024, 01/04, 03/28/2022, Additional history exists RETIRED - COLONOSCOPY-EVERY 5 YRS AGES 18-100 Discontinued 03/09/2022, 03/09/2022, 06/09/2015, Additional history exists Zoster Vaccines Completed 12/10/2022, 10/10/2022 Influenza Vaccine (FLU shot) Completed 01/22/2024, 01/16/2023, 02/09/2022, Additional history exists COVID-19 Vaccine Completed 01/28/2024, 03/2023, 04/11/2022, Additional history exists HPV (Gardasil) Vaccine Aged Out No lo nger eligible based on patient's age to complete this topic MENINGOCOCCAL (MENACTRA/MENVEO) Aged Out No longer eligible based on patient's age to complete this topic documented as of this encounter Medical Devices Not on filedocumented as of this encounter Visit Diagnoses Diagnosis Type 2 diabetes mellitus with hemoglobin A1c goal of less than 7.5% (HCC) documented in this encounter Care Teams [place] Relationship Specialty Start Date End Date Virgen Woodard MD [address] [place] [address] [place] [phone] PCP - General Family Medicine 03/28/22 documented as of this encounter
--- OUTSIDE RECORDS SUMMARY | 2024-08-04 17:21 | External Medical Summary | Summary of Care ---
Author Name Unknown Organization [facility] Address [address] [facility] [place] [address] Phone [phone] Care Team Providers Care Bone Glue Maker Name Role Phone Virgen Woodard MD Primary Care Provide r Reason for Visit * Reason Onset Date Comments Appointment 03/16/2024 ED F/U Encounter Details Date Type Department Care Team (Late st Contact Info) Description 03/16/2024 Telephone Family Medicine [address] [place] [phone] Virgen Woodard MD [address] [place] [address] [place] [phone] Appointment (ED F/U) Allergies Active Allergy Reactions Criticality Noted Date Comments Amoxicillin 04/10/2004 Facial swelling Ciprofloxacin 09/14/2008 Abdominal cramps Felodipine Cr 11/17/2008 RED ALL OVER Hydralazine Hcl 11/29/2008 rash Sulfa Antibiotics 10/15/2000 Septra gave bad lower abd. cramps documented as of this encounter (statuses as of 06/16/2024) Medications MULTI-DAY TABS OR one a day 0 1 Active Cholecalciferol (VITAMIN D3) 5000 UNITS Tablet Take 1 Capsule by mouth in the morning. Active Aspirin EC 81 MG Oral Tablet Delayed ReleaseIndications: Cerebrovascular disease, arteriosclerotic, post-stroke Take 1 Tablet (81 mg) by mouth in the morning. 100 Tablet 3 2 Active Hair/Skin/Nails Oral Tablet Take 1 Tablet by mouth in the morning. Active Cinnamon 500 MG Oral Capsule Take 5 Capsules by mouth in the morning. Pt takes ceylon cinnamon 2500mg daily "nature's truth". Active PlaytestCloudTouch Delica Lancets 33G Use to test blood sugars once daily DxE11.9 100 Each 3 3 Active OneTouch Verio Flex System Device Use to test blood sugars once daily DxE11.9 1 Each 3 Active OneTouch Verio In Vitro Strip (Glucose Blood) Use to test blood sugars once daily DxE11.9 100 Strip 3 3 Active SM Custer-3 Oral Capsule Take by mouth. Active Empagliflozin 25 MG Oral Tablet (Jardiance)Indicati ons:Type 2 diabetes mellitus with hemoglobin A1c goal of less than 7.0% (HCC) TAKE ONE TABLET BY MOUTH EVERY MORNING 100 Tablet 3 06/15/2024 10:20 AM EST 4 09/20/19 25 Active Trulicity 3 MG/0.5ML Subcutaneous Solution Pen-injector (Dulaglutide) Inject 3 mg under the skin once a week. 2 mL 11 4 Active Cetirizine HCl 10 MG Oral Tablet (ZyrTEC Allergy)Indications :Allergic conjunctivitis, bilateral Take 1 Tablet by mouth in the morning. 30 Tablet 5 4 Active Losartan Potassium 100 MG Oral Tablet (Cozaar)Indications :HTN, goal below 130/80 Take 1 Tablet by mouth in the morning. 90 Tablet 3 04/13/2024 12:45 PM EST 4 Active Neomycin-Polymyxin- HC Ophthalmic SuspensionIndicatio ns:Acute conjunctivitis of right eye, unspecified acute conjunctivitis type Instill 1 Drop into the right eye in the morning and 1 Drop at noon and 1 Drop in the evening and 1 Drop before bedtime. In affected eye while awake.. 7.5 mL 1 4 Active documented as of this encounter (statuses as of 06/16/2024) Active Problems Problem Noted Date Diagnosed Date [...] as of this encounter (statuses as of 06/16/2024) Resolved Problems Problem Noted Date Diagnosed Date Resolved Date HTN, goal below 130/80 07/10/202208/29 HTN, goal below 140/80 12/24/201103/28 Overview: Per [...] per HTN Taxonomy. 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 Fall Any new medications prescribed: No How is patient feeling today: Improving and able to walk today Does patient have concerns today: No Was patient scheduled for a follow up appointment: Yes, date 03/18/2024 documented in this encounter Plan of Treatment Upcoming Encounters Date Type Department Care Team (Late st Contact Info) Description 07/13/2024 10:00 AM EDT Nurse Only Ancillary [address] [place] [phone] [place], Nurse Annual Wellness [address] [place] [address] [place] [address] 10/16/2024 10:40 AM EDT Office Visit [address] [phone] Bernie Stokes CRNP [address] [place] [address] [place] [phone] 04/16/2025 10:40 AM EST Office Visit [address] [phone] Virgen Woodard MD [address] [place] [address] [place] [phone] Scheduled Procedures Name Priority Associated Diagnoses Date/Ti [...] 12/2023, 05/23/2023, Additional history exists Albumin/Creatinine Ratio 03/18/2025 024, 05/23/2023, 01/17/2023, Additional history exists GFR 03/18/2025 03/18/2024, 050 12/2023, 05/23/2023, Additional history exists Mammogram 04/14/2025 04/14/2024, 10/2022, 04/10/2023, Additional history exists Colonoscopy 03/09/2027 03/09/2022, 08/2021, 06/09/2015, Additional history exists Colorectal Cancer Screening 03/09/2027 DXA Scan 03/28/2027 03/28/2020, 10/2016, 03/10/2013 Lipid Panel 03/18/2029 03/18/2024, 01/04, [...] Not on filedocumented as of this encounter Care Teams Bone Glue Maker Relationship Specialty Start Date End Date Virgen Woodard MD [address] [place] [address] [place] [address] PCP - General Family Medicine 03/28/22 documented as of this encounter
--- OUTSIDE RECORDS SUMMARY | 2024-08-04 17:21 | External Medical Summary | Summary of Care ---
Author Name Unknown Organization [facility] Address [address] [facility] [place] [address] Phone [phone] Care Team Providers Care Assistant Grocery Store Manager Name Role Phone Kori Mckeon MD Primary Care Pr ovider Reason for Visit * Reason Comments Adult Annual Wellness Visit, Subsequent Visit Encounter Details Date Type Department Care Team (Late st Contact Info) Description 07/13/2024 10:00 AM EDT Nurse Only Ancillary [address] [place] [phone] [place], Nurse Annual Wellness [address] [place] [address] [place] [id number] Adult Annual Wellness Visit, Subsequent Visit Allergies Active Allergy Reactions Criticality Noted Date Comments Amoxicillin 04/10/2004 Facial swelling Ciprofloxacin 09/14/2008 Abdominal cramps Felodipine Cr 11/17/2008 RED ALL OVER Hydralazine Hcl 11/29/2008 rash Sulfa Antibiotics 10/15/2000 Septra gave bad lower abd. cramps documented as of this encounter (statuses as of 07/13/2024) Medications MULTI-DAY TABS OR one a day [...] ceylon cinnamon 2500mg daily "nature's truth". Active LonoTouch Delica Lancets 33G Use to test blood sugars once daily DxE11.9 100 Each 3 3 Active OneTouch Verio Flex System Device Use to test blood sugars once daily DxE11.9 1 Each 3 Active LonoTouch Verio In Vitro Strip (Glucose Blood) Use to test blood sugars once daily DxE11.9 100 Strip 3 3 Active SM [place]-3 Oral Capsule Take by mouth. Active Empagliflozin 25 MG Oral Tablet (Jardiance)Indicat ions:Type 2 diabetes mellitus with hemoglobin A1c goal of less than 7.0% (HCC) TAKE ONE TABLET BY MOUTH EVERY MORNING 100 Tablet 3 06/15/2024 10:20 AM EST 4 025 Active Trulicity 3 MG/0.5ML Subcutaneous Solution Pen-injector (Dulaglutide) Inject 3 mg under the skin once a week. 2 mL 11 4 Active Losartan Potassium 100 MG Oral Tablet (Cozaar)Indication s:HTN, goal below 130/80 Take 1 Tablet by mouth in the morning. 90 Tablet 3 07/13/2024 2:39 PM EDT 4 Active amLODIPine Besylate 10 MG Oral Tablet (Norvasc)Indicatio ns:HTN, goal below 140/90 TAKE ONE TABLET BY MOUTH EVERY EVENING AT BEDTIME 100 Tablet 3 04/06/2024 6:38 PM EST 4 Active Atorvastatin Calcium 10 MG Oral Tablet (Lipitor)Indicatio ns:History of CVA (cerebrovascular accident) without residual deficits TAKE 1 TABLET BY MOUTH EVERY OTHER DAY 45 Tablet 1 4 Active Metoprolol Succinate ER 25 MG Oral Tablet Extended Release 24 Hour (toPROL XL)Indications:HTN , goal below 140/90 TAKE 1 TABLET BY MOUTH AT NIGHT AT BEDTIME 90 Tablet 3 04/25/2024 1:43 PM EST 4 025 Active metFORMIN HCl 1000 MG Oral Tablet (Glucophage)Indica tions:Type 2 diabetes mellitus with hemoglobin A1c goal of less than 7.5% (HCC) TAKE ONE TABLET BY MOUTH TWICE DAILY 180 Tablet 1 5 Active Refresh 1.4-0.6 % Ophthalmic Solution (polyvinyl alcohol-povidone PF) 1 Drop as needed. Active Cetirizine HCl 10 MG Oral Tablet (ZyrTEC Allergy)Indication s:Allergic conjunctivitis, bilateral Take 1 Tablet by mouth in the morning. 30 Tablet 5 4 025 Discontin ued(Medic ation List Clean Up) Neomycin-Polymyxin -HC Ophthalmic SuspensionIndicati ons:Acute conjunctivitis of right eye, unspecified acute conjunctivitis type Instill 1 Drop into the right eye in the morning and 1 Drop at noon and 1 Drop in the evening and 1 Drop before bedtime. In affected eye while awake.. 7.5 mL 1 4 025 Discontin ued(Medic ation List Clean Up) documented as of this encounter (statuses as of 07/13/2024) Active Problems Problem Noted Date Diagnosed Date [...] as of this encounter (statuses as of 07/13/2024) Resolved Problems Problem Noted Date Diagnosed Date [...] stress incontinence 05/14/2005 1 05/28/2021 Overview (05/14/2005): Leonatraishan started Type 2 diabetes mellitus wit h [...] as of this encounter (statuses as of 07/13/2024) Immunizations Name Administration Dates Next Due COVID-19 [...] (Pfizer) 04/11/2022 H1N1 2009 Influenza, IM 06/13/2009 Influenza, Whole Virus 05/15/2000 Pneumococcal Polysaccharide PPV23 (Pneumovax) 05/26/2002 Season Influenza, Quad, PF, Adjuvanted, 65+ Yrs, IM (FLUAD) 02/18/2020 Seasonal Influenza Vac., MDV , IM, 0.5 mL (Fluzone) 01/05/2014,02/09/2010,01/25/2009,02/03,03/07/2007,02/21/2006,03/02/20,03/23/2003,03/20/2002,03/26/2001 03/20/2003 Seasonal Influenza, High Dos e, Trivalent, PF, [...] Answer Date Recorded PHQ Adult Total Score 0 07/13/2024 Hunger Vital Sign Answer Date Recorded Within the past 12 months, y ou worried that your food would run out before you got the money to buy more. Never true 07/14/19 25 Within the past 12 months, t he food you bought just didn't last and you didn't have money to get more. Never true 07/13/2024 Childcare Answer Date Recorded Do you feel overwhelmed with taking care of a child, family member or friend? No 07/13/2024 Does your family need help f inding childcare? (Household - for ages 0-17 years) Not on file 07/13/2024 Clothing Answer Date Recorded Have you been unable to get clothing when it was really needed? No 07/13/2024 Is your family able to get c lothes or diapers when needed? (Household - for ages 0-17 years) Not on file 07/13/2024 Personal Safety Answer Date Recorded Do you feel unsafe or have concerns for your saf ety? No 07/13/2024 Do you have concerns for you r family's safety? (Household - for ages 0-17 years) Not on file 07/13/2024 Utilities Answer Date Recorded Do you have trouble paying y our heating, water, or electric bill? No 07/13/2024 Is your family able to pay t he heat, water, or electric bill? (Household - for ages 0-17 years) Not on file 07/13/2024 Does your family have access to good internet? (Household - for ages 0-17 years) Not on file 07/13/2024 Employment Status Answer Date Recorded Are you unemployed or without regular income? No 07/13/2024 Does the household have a re gular source of income? (Household - for ages 0-17 years) Not on file 07/13/2024 Social Connections Answer Date Recorded How often do you feel lonely or isolated from th ose around you? Never 07/13/2024 Financial Resource Strain Answer Date R ecorded Do you have any trouble payi ng for your medications, or do you think you might in the future? No 07/13/2024 Does your family have troubl e paying for medicine? (Household - for ages 0-17 years) Not on file 07/13/2024 Transportation Needs Answer Date Record ed Do you have trouble getting a ride to medical visits or work? (Adult - for ages 18 years and over) Not on file 07/13/2024 Does your family have a hard time getting a ride to doctors visits? (Household - for ages 0-17 years) Not on file 07/13/2024 Has lack of transportation k ept you from medical appointments, meetings, work, or from getting things needed for daily living? Check all that apply. No 07/13/2024 Do you (or your family) have trouble finding or paying for a ride (transportation)? (Household - for ages 0-17 years) Not on file 07/13/2024 Housing Stability Answer Date Recorded Do you currently live in a s helter or have no steady place to sleep at night? No 07/13/2024 Do you think you are at risk of becoming homeless? (Adult - for ages 18 years and over) Not on file 07/13/2024 Does your family worry about paying for your home or becoming homeless? (Household - for ages 0-17 years) Not on file 0 07/13/2024 Are you homeless or worried that you might be in the future? No 07/13/2024 Are you (or your family) aurea eless [...] the money to buy more. Never true 07/14/19 25 Within the past 12 months, t he food you bought just didn't last and you didn't have money to get more. Never true 07/13/2024 Do you need food for this week? No 07/13/2024 Comments No Sex and Gender Information Value Date Recorded Sex Assigned at Female 07/10/2022 3:57 PM EST Legal Sex Female 5:26 AM EST Gender Identity Female 07/10/2022 3:57 PM EST Sexual Orientation Straight 07/10/2022 3: 57 PM EST Occupation Industry Job Start Date Job End Date [employer] Not on file Not on file Not on file documented as of this encounter Last Filed Vital Signs Vital Sign Reading Time Taken Comments Blood Pressure 151/70 07/13/2024 11:11 AM EDT Pulse 90 07/13/2024 10:06 AM EDT Temperature 20.9 C (69.6 F) 07/13/2024 1 0:06 AM EDT Respiratory Rate - - Oxygen Saturation 93% 07/13/2024 10: 06 AM EDT Inhaled Oxygen Concentration - - Weight 90.6 kg (199 lb 12.8 oz) 025 10:06 AM EDT Height 168.9 cm (5' 6.5") 07/13/2024 10 :06 AM EDT Body Mass Index 31.77 07/13/2024 10:06 AM EDT documented in this encounter Patient Instructions * Patient Instructions* Shelli Umana RN - 07/13/2024 10:59 AM EDT Hi Ariel Brian, As your primary care physician, I know that regular visits with my patients who have several chronic conditions can go a long way in helping you stay healthy. Many times, the clinic team and I are in touch with you and/or other care team members between office visits to adjust medications, discuss any changes in your health, and review our care plan to make sure it is still meeting your needs. I am dedicated to helping you take a more active role in your overall care. It is important that there are resources available to you, so I created a personalized plan of care with a Health Calendar for you, which is included on the next page of this letter. Below is a list that summarizes your electronic health record: Health Maintenance Due: Health Maintenance Due Topic Date Due Hepatitis C Screening Never done Pneumococcal Vaccine: 50+ Years (2 of 2 - PCV) 05/26/2003 Hepatitis B Vaccine (1 of 3 - Risk 3-dose series) Never done DTap/Tdap Vaccines (2 - Td or Tdap) 03/07/2017 Diabetic Foot Exam 07/11/2024 Current Medication List: (as of 11/23/2016 (in office), Visit date not found (telemedicine) ) Current Outpatient Medications Medication Sig Dispense Refill MULTI-DAY TABS OR one a day 0 Cholecalciferol (VITAMIN D3) 5000 UNITS Tablet Take 1 Capsule by mouth in the morning. Aspirin EC 81 MG Oral Tablet Delayed Release Take 1 Tablet (81 mg) by mouth in the morning. 100Tablet 3 Hair/Skin/Nails Oral Tablet Take 1 Tablet by mouth in the morning. Cinnamon 500 MG Oral Capsule Take 5 Capsules by mouth in the morning. Pt takes ceylon cinnamon 2500mg daily "nature's truth". OneTouch Delica Lancets 33G Use to test blood sugars once daily DxE11.9 100 Each 3 OneTouch Verio Flex System Device Use to test blood sugars once daily DxE11.9 1 Each 0 OneTouch Verio In Vitro Strip (Glucose Blood) Use to test blood sugars once daily DxE11.9 100 Strip 3 SM [place]-3 Oral Capsule Take by mouth. Trulicity 3 MG/0.5ML Subcutaneous Solution Pen-injector (Dulaglutide) Inject 3 mg under the skin once a week. 2 mL 11 Losartan Potassium 100 MG Oral Tablet (Cozaar) Take 1 Tablet by mouth in the morning. 90 Tablet3 amLODIPine Besylate 10 MG Oral Tablet (Norvasc) TAKE ONE TABLET BY MOUTH EVERY EVENING AT BEDTIME 100 Tablet 3 Atorvastatin Calcium 10 MG Oral Tablet (Lipitor) TAKE 1 TABLET BY MOUTH EVERY OTHER DAY 45 Tablet 1 Metoprolol Succinate ER 25 MG Oral Tablet Extended Release 24 Hour (toPROL XL) TAKE 1 TABLET BYMOUTH AT NIGHT AT BEDTIME 90 Tablet 3 metFORMIN HCl 1000 MG Oral Tablet (Glucophage) TAKE ONE TABLET BY MOUTH TWICE DAILY 180 Tablet 1 Refresh 1.4-0.6 % Ophthalmic Solution (polyvinyl alcohol-povidone PF) 1 Drop as needed. Empagliflozin 25 MG Oral Tablet (Jardiance) TAKE ONE TABLET BY MOUTH EVERY MORNING 100 Tablet 3 No current facility-administered medications for this visit. Current List of Allergies: (as of 11/23/2016 (in office), Visit date not found (telemedicine) ) Review of patient's allergies indicates: Allergen Reactions Amoxicillin Facial swelling Ciprofloxacin Abdominal cramps Felodipine Cr RED ALL OVER Hydralazine Hcl rash Sulfa Antibiotics Septra gave bad lower abd. cramps Most Recent Lab Results: Results for orders placed or performed in visit on 03/18/24 HEMOGLOBIN A1C Result Value Ref Range Hemoglobin A1C 8.1 (H) 4.0 - 5.6 % Estimated Average Glucose 186 (H) <126 mg/dL LIPID PANEL WITHOUT DIRECT LDL Result Value Ref Range Triglycerides 128 <=174 mg/dL Cholesterol 105 <200 mg/dL HDL Cholesterol 46 (L) >49 mg/dL Non-HDL Cholesterol 59 <=159 mg/dL LDL Cholesterol 33 <=129 mg/dL BASIC METABOLIC PANEL Result Value Ref Range BUN 16 6 - 20 mg/dL CREATININE 0.7 0.5 - 1.0 mg/dL EGFR >90 >=60 mL/min SODIUM 137 135 - 146 mmol/L POTASSIUM 4.9 3.5 - 5.1 mmol/L CHLORIDE 100 98 - 107 mmol/L CO2 22 22 - 32 mmol/L ANION GAP 15 7 - 15 mmol/L GLUCOSE 336 (H) 70 - 120 mg/dL CALCIUM 9.6 8.4 - 10.2 mg/dL ALBUMIN / CREATININE RATIO, URINE Result Value Ref Range Albumin, Random Urine <1.20 mg/dL Creatinine, Random Urine 31 mg/dL Albumin / Creatinine Ratio, Urine <30 mg/g Creat Uninterpretable Albumin/Creatinine ratio due to very low albumin and creatinine values. VITAMIN B12 Result Value Ref Range Vitamin B12 333 232 - 1,245 pg/mL Sincerely, Kori Abdalla MD 07/13/2024 [facility] Calendar (as of 11/23/2016 (in office), Visit date not found (telemedicine) ) Care needs Care needs Last completed Due next Hepatitis C screening --- Never done Pneumonia vaccine (2 of 2 - PCV) 05/26/2002 05/26/2003 Hepatitis B vaccine (1 of 3 - Risk 3-dose series) --- Never done Diphtheria, tetanus & pertussis vaccines (2 - Td or Tdap) 03/07/2007 03/07/2017 Diabetic Foot Exam 07/12/2023 07/11/2024 COVID-19 Vaccine ( - season) 2024 07/27/2024 Diabetic Eye Exam 08/16/2023 08/15/2024 A1C blood sugar test 03/18/2024 09/15/2024 Urine albumin/creatinine test 03/18/2024 03/18/2025 Kidney Function Test 03/18/2024 03/18/2025 Mammogram 04/14/2024 04/14/2025 Adult Wellness Visit 07/13/2024 07/13/2025 Colorectal cancer screening (colonoscopy 10 years, sigmoidoscopy 5 years, Cologuard 3 years, stool sample 1 year) 03/09/2022 03/09/2027 Bone Density 03/28/2020 03/28/2027 Lipid (cholesterol) disorder screening 03/18/2024 03/18/2029 As you look over the recommended services, be sure to check with your insurance company to determine what's covered. [employer] is a great tool that helps you review your medical record online, including test results, doctor notes and your health summary. You can also schedule appointments with me and other members of your care team, request prescription refills and ask for advice related to your medical conditions at [email or web address]. Diabetes: Keeping Feet Healthy Inspect your feet every day for signs of a problem. Diabetes can damage nerves in your feet and cause neuropathy. This condition makes it hard for you to feel injuries or sore spots. Diabetes can also change blood flow, making it harder for small problems, like a blister, to heal properly. In fact, minor injuries can quickly become serious infections that send you to the hospital. Practice self-care to protect your feet and keep them healthy. Take Special Care Inspect your feet daily for problems such as redness, blisters, cracks, dry skin, or numbness. Use a mirror to see the bottoms of your feet. Or, ask for help. Manage your diabetes. Monitor and control your blood sugar. Take all your medications as prescribed. Avoid walking barefoot, even indoors. Wash your feet with warm water and mild soap. Dry well, especially between toes. Dont treat corns or calluses yourself. Talk to your doctor or crm coordinator (a doctor who specializes in foot care) if you need assistance trimming your toenails. Use moisturizing cream or lotion if you have dry skin, but dont use it between toes. Dont use heating pads on your feet. If you have neuropathy, you could get a burn and not feel it. Stop smoking. Smoking restricts blood flow and can make it harder for wounds to heal. Have Regular Checkups Foot problems can develop quickly. So be sure to follow your healthcare teams schedule for regular checkups. During office visits, take off your shoes and socks as soon as you get in the exam room. Ask your healthcare provider to examine your feet for problems. This will make it easier to find and treat small skin irritations before they get worse. Regular checkups can also help keep track of the blood flow and feeling in your feet. If you have neuropathy, you may need to have checkups more often. Wear Proper Footwear Wearing proper footwear is very important. If areas of your feet have been damaged by too much pressure, your healthcare provider may recommend changing your footwear. In some cases, avoiding high heels or tight work boots may be all thats needed. Or, your healthcare provider may recommend special shoes or custom inserts. These help protect your feet and keep existing irritations from getting worse. If you need special footwear, ask your healthcare provider if you qualify for [facility] diabetic shoe program. Make Sure Shoes and Socks Fit Any pair of shoes--new or old--should feel comfortable as soon as you put them on. There shouldnt be any rubbing when you walk. Wear the right shoe for any activity. For instance, a running shoe is designed to keep your feet injury-free while jogging. Buy shoes at the end of the day, when your feet are larger. Make sure they provide support without feeling too loose. Make sure your socks fit, t oo. Wear soft, seamless, well-padded socks for activity. Cotton or microfiber socks are best to help to absorb sweat. To protect your feet, avoid shoes that are open-toed or open-heeled. If you have questions about what kinds of shoes and socks are best, talk to your healthcare team. Get Regular Exercise Regular exercise improves blood flow in your feet. It also increases foot strength and flexibility.Gentle exercises, like walking or riding a stationary bicycle, are best. You can also do special foot exercises. Just be sure to talk with your healthcare provider before starting any exercise program. Also mention if any exercise causes pain, redness, or other signs of foot problems. Note: If you have any kind of break in the skin of your foot or ankle, keep the area clean. Then call your doctor--especially if the area doesnt appear to be healing. 2511-9039 [employer], [address] [place] [address], [place] [address]. All rights reserved. This information is not intended as a substitute for professional medical care. Always follow your healthcare professional's instructions. documented in this encounter Progress Notes * Shelli Umana RN - 07/13/2024 10:05 AM EDT AD8 Dementia Screening Interview Person answering questions: patient Remember, "Yes, a change" indicates that there has been a change in the last several years caused by cognitive (thinking and memory) problems 1. Problems with judgement (eg: problems making decisions, bad financial decisions, problems with thinking). No (0) 2. Less interest in hobbies/activities. No (0) 3. Repeats the same things over and over (questions, stories, or statements). No (0) 4. Trouble learning how to use a tool, appliance, or gadget (eg: VCR, computer, microwave, remote control). No (0) 5. Forgets correct month or year. No (0) 6. Trouble handling complicated financial affairs (eg: balancing checkbook, income taxes, paying bills). No (0) 7. Trouble remembering appointments. No (0) 8. Daily problems with thinking and/or memory. No (0) TOTAL AD8: 0 - AD8 Dementia Screening Score The final score is a sum of the number items marked "Yes, A Change". 0 - 1: Normal cognition; 2 or greater: Cognitive impairments is likely to be present - further testing required Adult Annual Wellness Visit: Darlene Torres is a 73 year old female who presents for an Adult Annual Wellness Visit. Depression Screening: Did the patient complete the screening questionnaire for Depression? Yes Is the patient's total score for Depression 15 or greater? No, no further intervention needed, unless requested by patient. Did the patient answer positively to the suicide question? No, no further intervention needed, unless requested by patient. In general, compared to other people your age, what would you say that your health is? Fair Ht Readings from Last 1 Encounters: 07/13/24 5' 6.5" (1.689 m) Wt Readings from Last 1 Encounters: 07/13/24 199 lb 12.8 oz (90.6 kg) Body Mass Index: BMI Greater than 30 Body mass index is 31.77 kg/m. BP Readings from Last 1 Encounters: 07/13/24 164/70 Medical/Surgical/Family History Reviewed: Yes Past Medical History: Diagnosis Date Abnormal involuntary movement Cerebrovascular event, ill-defined, within last 8 weeks Tia Diverticulosis of colon Dr [place] Elevated C-reactive protein (CRP) 07/09/03 22.4 FATTY LIVER Generalized osteoarthritis HTN, goal below 130/80 Pain in joint, other specified sites Plantar fibromatosis Prolapse of vaginal melendrez without mention of uterine prolapse cystocele Sprain of wrist 03/09 injured right wrist, tendon sheath is leaking, being referred to [facility] Trigeminal neuralgia Past Surgical History: Procedure Laterality Date ABD/PELVIS CT W/ IV AND W/ PO CONTRAST 07/13/2009 cholecystectomy, hysterectomy, diverticulosis, fatty liver BREAST BIOPSY Right BENIGN COLONOSCOPY W/ BIOPSY (RECTUM) 08/24/2009 diverticulosis, bx taken and unremarkable COLONOSCOPY, DIAGNOSTIC (RECTUM) 06/09/2015 hyperplastic polyps, diverticulosis, repeat 5 yrs/COLONOSCOPY FLEXIBLE PROXIMAL DIAGNOSTIC performed by Franca Walters DO at ENDOSCOPY [facility] COLONOSCOPY, DIAGNOSTIC (RECTUM) 03/09/2022 benign adenomatous polyp, diverticulosis, repeat 5 yrs / COLONOSCOPY FLEXIBLE PROXIMAL DIAGNOSTIC performed by Franca Walters, DO at ENDOSCOPY [facility] CT SINUSES W WO CONTRAST 10/12/2006 mild nasal septal deviation mild chronic maxillary sinusitis CT SINUSES WO CONTRAST 07/19/2008 mild bilateral nonobstructing disease, nasal septum deviated to right ECHO,TTE W/O SPECTRAL + [place] [id number] - REMOVE TONSILS 20's MAMMOGRAM - 1 BREAST 03/24/2007 left breast, category 1 stable MAMMOGRAM SCREENING-BILATERAL 07/01/2006 left category 0, right category 1 MAMMOGRAM SCREENING-BILATERAL 06/22/2008 scattered fibroglandular densities, category 1 normal MRI FOOT W WO CONTRAST 05/10/2008 focal bone marrow edema/enthesopathy at attachment of right paroneus brevis tendon on base of [id number] metatarsal NM GASTRIC EMPTYING STUDY SOLID 09/30/2009 normal halftime of gastric emptying of 81 minutes REMOVE GALLBLADDER Cholecystectomy SIGMOIDOSCOPY, DIAGNOSTIC 2004 diverticulosis TOTAL ABD HYSTERECTOMY W/WO REMOVAL OF TUBE(S) endometriosis VASC DUPLEX VENOUS LE UNILAT 02/16/2008 normal left leg Family History Problem Relation Name Age of Onset Cancer Mother tonsillar cancer Other (bowel problem) Father bowel problem, not cancer Cancer Grandmother (Maternal) breast No Known Problems Daughter Diabetes Son Cancer Aunt (Maternal) 84 breast Breast Cancer Aunt (Maternal) Has patient ever had cancer? No Social History Tobacco Use Smoking status: Never Smokeless tobacco: Never Substance Use Topics Alcohol use: No Vaping/E-Cigarette Use Vaping/E-Cigarette Use Never User Vaping/E-Cigarette Substances Vaping/E-Cigarette Devices Tobacco/Alcohol screening completed today? Yes Hospital Care: Admissions (within the last year): Not Applicable ER within 30 days: No Does the patient have an Advance Directives/Living Will? Yes Last Physical Exam: Last physical exam: 04/2024 Does patient see primary provider regularly? Yes Does patient see other providers? Yes, Specialist Patient Care Team updated? Yes Review of patient's allergies indicates: Allergen Reactions Amoxicillin Facial swelling Ciprofloxacin Abdominal cramps Felodipine Cr RED ALL OVER Hydralazine Hcl rash Sulfa Antibiotics Septra gave bad lower abd. cramps Immunization History Administered Date(s) Administered COVID-19 mRNA, LNP-s, No Preserve, 2-Dose Series (Zopim) 07/04/2020, 07/25/2020, 03/08/2021 COVID-19, MRNA-LNP, PF, 30 MCG/0.3 mL, 12 YRS AND ABOVE, IM ([facility]) 01/28/2024 COVID-19, MRNA-LNP, PF, 50 MCG/0.5 mL, 12 YRS AND ABOVE, IM (MODERNA-Spikevax) 02/13/2023 Covid-19, Mrna, Lnp-s, Pf, Bivalent, 30 Mcg, IM, 12 yrs and above (Pfizer) 04/11/2022 H1N1 2009 Influenza, IM 06/13/2009 Influenza, Whole Virus 05/15/2000 Pneumococcal Polysaccharide PPV23 (Pneumovax) 05/26/2002 Season Influenza, Quad, PF, Adjuvanted, 65+ Yrs, IM (FLUAD) 02/18/2020 Seasonal Influenza Vac., MDV, IM, 0.5 mL (Fluzone) 03/26/2001, 03/20/2002, 03/23/2003, 03/02/2005, 02/21/2006, 03/07/2007, 02/13/2008, 01/25/2009, 02/09/2010, 01/05/2014 Seasonal Influenza, High Dose, Trivalent, PF, IM (Fluzone HD) 01/22/2024 Seasonal Influenza, PF, 6 M & above, IM , (FluLaval or Fluzone) 02/13/2018 Seasonal Influenza, Quadrivalent Hd (Fluzone Hd) 01/13/2021, 02/09/2022, 01/16/2023 Seasonal Influenza, Quadrivalent, No Preserve, IM 02/16/2015, 02/22/2016, 01/17/2017 Seasonal Influenza, Trivalent, Adjuvanted, 65+ YRS, PF, (Fluad) 02/09/2019 TDAP, Age 7 and older, IM (Adacel) 03/07/2007 Zoster Vaccine Recombinant (Shingrix) 10/10/2022, 12/10/2022 Current Outpatient Medications Medication Sig Dispense Refill MULTI-DAY TABS OR one a day 0 Cholecalciferol (VITAMIN D3) 5000 UNITS Tablet Take 1 Capsule by mouth in the morning. Aspirin EC 81 MG Oral Tablet Delayed Release Take 1 Tablet (81 mg) by mouth in the morning. 100 Tablet 3 Hair/Skin/Nails Oral Tablet Take 1 Tablet by mouth in the morning. Cinnamon 500 MG Oral Capsule Take 5 Capsules by mouth in the morning. Pt takes ceylon cinnamon 2500mg daily "nature's truth". OneTouch Delica Lancets 33G Use to test blood sugars once daily DxE11.9 100 Each 3 OneTouch Verio Flex System Device Use to test blood sugars once daily DxE11.9 1 Each 0 OneTouch Verio In Vitro Strip (Glucose Blood) Use to test blood sugars once daily DxE11.9 100 Strip3 SM [place]-3 Oral Capsule Take by mouth. Trulicity 3 MG/0.5ML Subcutaneous Solution Pen-injector (Dulaglutide) Inject 3 mg under the skin once a week. 2 mL 11 Losartan Potassium 100 MG Oral Tablet (Cozaar) Take 1 Tablet by mouth in the morning. 90 Tablet 3 amLODIPine Besylate 10 MG Oral Tablet (Norvasc) TAKE ONE TABLET BY MOUTH EVERY EVENING AT BEDTIME 100 Tablet 3 Atorvastatin Calcium 10 MG Oral Tablet (Lipitor) TAKE 1 TABLET BY MOUTH EVERY OTHER DAY 45 Tablet 1 Metoprolol Succinate ER 25 MG Oral Tablet Extended Release 24 Hour (toPROL XL) TAKE 1 TABLET BY MOUTH AT NIGHT AT BEDTIME 90 Tablet 3 metFORMIN HCl 1000 MG Oral Tablet (Glucophage) TAKE ONE TABLET BY MOUTH TWICE DAILY 180 Tablet 1 Refresh 1.4-0.6 % Ophthalmic Solution (polyvinyl alcohol-povidone PF) 1 Drop as needed. Empagliflozin 25 MG Oral Tablet (Jardiance) TAKE ONE TABLET BY MOUTH EVERY MORNING 100 Tablet 3 No current facility-administered medications for this visit. Patient Active Problem List Diagnosis Metabolic syndrome Diverticulosis of colon PLANTAR FIBROMATOSIS Other ovarian dysfunction Prolapse of vaginal melendrez Other allergic rhinitis Generalized osteoarthritis Type 2 diabetes mellitus with hemoglobin A1c goal of less than 7.5% (HCC) FATTY LIVER Irritable bowel syndrome Essential tremor History of CVA (cerebrovascular accident) HTN, goal below 140/90 Mixed hyperlipidemia Medication Compliance: Patient is able to obtain all of her medications? Yes Patient takes medications as prescribed? Yes Patient manages own medications: Yes Patient uses a pill box? No Dental Exam: Yes: Every 6 Months Eye Screening: Yes: Every encouraged yearly Are you having trouble with hearing? No Do you use an assistive device to help your hearing? No Exercise Screening: daily exercise, walk dog 3 x day . Nutrition Assessment: Eats three meals a day Pain Screening: Are you having any pain? No Sleep Screening Tool 'STOP': Do you snore? No Do you feel fatigued during the day? Yes Do you wake up feeling like you haven't slept? No Have you been told you stop breathing at night? No Do you gasp for air or choke while sleeping? No Have you been told you have Sleep Apnea? No Do you have high blood pressure or are on medication(s) to control high blood pressure? Yes SCORE: If you check YES to two or more questions, make a referral for Obstructive Sleep Apnea Declined jesus referral Patient and Caregiver Support System: Patient lives with a spouse Means of Transportation: Drives. Concerns identified are: night Patient lives in One Story - with basement stairs: 12 w railings Community Resources: Not Applicable Functional Status and ADL Skills: Has patient ever had an amputation? No Functional Assessment: 100- Normal, no complaints, no evidence of disease Ambulation: Patient ambulates with assistive device. Cane, walker if needed Dressing: Gets clothes and dresses without any assistance: Independent Able to move freely in chair or bed including turning over: Independent Repositioning (bed or chair): Not applicable Transfers: Independent Toileting: Goes to bathroom, uses toilet, arranges clothes and returns without any assistance: Independent Toileting: continent of bowel and incontinent of bladder Feeding: Self Bathing: Self; walk in with grab bars Requires none assistance with ADLs. Instrumental ADL's: Shopping: Minimal Assistance Housekeeping: Minimal Assistance Handling Finances: Independent DME Vendor Name: Not Applicable Fall Risk Assessment: Fall Risk Assessment Questionnaire & Timed Up and Go Test (TUG) None Can the patient demonstrate that she can stand from a sitting position? Yes Has the patient had a fall within the last 6 months? Yes Does the patient have a problem with her gait or balance? No Does the patient take 4 or more prescription medicines? Yes Does the patient use sedatives or narcotics? No Fall Risk Factors Present: History of falls within the past 6 months Yes Uses more than 4 medications Uses assistive devices Balance or gait disturbances Visually impaired Older than age 70 Nvy-Sc-uer-Go Test: Time began at 1000. Patient stood from sitting position and walked approximately 10 feet, returned and sat down. Total time for jjf-wh-npn-go test was 10 seconds. Mlu-Fi-usa-Go Test completed? Yes Gender Specific Preventative Plan: Health Maintenance Topic Date Due Hepatitis C Screening Never done Pneumococcal Vaccine: 50+ Years (2 of 2 - PCV) 05/26/2003 Hepatitis B Vaccine (1 of 3 - Risk 3-dose series) Never done DTap/Tdap Vaccines (2 - Td or Tdap) 03/07/2017 COVID-19 Vaccine ( season) 2024 Diabetic Eye Exam 08/15/2024 HbA1c 09/15/2024 Albumin/Creatinine Ratio 03/18/2025 GFR 03/18/2025 Mammogram 04/14/2025 Diabetic Foot Exam 07/13/2025 Depression Screening 07/13/2025 Adult Wellness Visit 07/13/2025 Colorectal Cancer Screening 03/09/2027 DXA Scan 03/28/2027 Lipid Panel 03/18/2029 Influenza Vaccine (FLU shot) Completed Zoster Vaccines Completed MENINGOCOCCAL (MENACTRA/MENVEO) Aged Out HPV (Gardasil) Vaccine Aged Out Meningitis B Vaccine (Bexsero/Trumemba) Aged Out RETIRED - COLONOSCOPY-EVERY 5 YRS AGES 18-100 Discontinued Follow Up/ Referrals/Handouts: Depression screening - completed Functional assessment - doing well, still working on improving A1C Falls Risk screening - discuss Exercise screening - If poor exercise habits, provide exercise handouts Nutrition assessment -. Education Provided and Handouts Provided Pain screening - right thumb still gives her problems after fall in March Incontinence screening - patient has discuss other options with Dr. Cosby and not interested in injections. Patient has been verbally educated on the need or importance of Cholesterol, Colon Cancer Screening, Diabetic Eye Exam, Diabetic Foot Exam, Glucose, Hemoglobin A1c, Potassium, COVID, Flu Vaccine, andShingles Vaccine Pt has completed the covid vaccines: Yes, 2023 Routine general medical examination at a health care facility (Primary) Type 2 diabetes mellitus with hemoglobin A1c goal of less than 7.0% ([facility]) - DIABETES FOOT EXAM HTN, goal below 140/90 - Med reconciliation completed and compliance discussed. - pt to continue present medications. BP Readings from Last 3 Encounters: 07/13/24 164/70 04/16/24 138/58 04/06/24 160/68 Mixed hyperlipidemia - Med reconciliation completed and compliance discussed. - pt to continue present medications. Lab Results Component Value Date/Time LDL CHOLESTEROL (CALCULATED) - [facility] 03/18/2024 09:26 AM LDL CHOLESTEROL (CALCULATED) - [facility] 07/02/2017 08:41 AM LDL CHOLESTEROL (DIRECT MEASURE) - [facility] 96 06/20/2006 04:32 PM Type 2 diabetes mellitus with hemoglobin A1c goal of less than 7.5% ([facility]) - Med reconciliation completed and compliance discussed. - pt to continue present medications. Hemoglobin AIC Results: Lab Results Component Value Date/Time HEMOGLOBIN A1C - [facility] 8.1 (H) 03/18/2024 09:26 AM HEMOGLOBIN A1C - [facility] 7.8 (H) 09/11/2023 12:07 PM HEMOGLOBIN A1C - [facility] 7.9 (H) 05/23/2023 09:41 AM HEMOGLOBIN A1C - [facility] 7.3 (H) 10/28/2017 09:15 AM HEMOGLOBIN A1C - [facility] 7.5 (H) 07/02/2017 08:41 AM HEMOGLOBIN A1C - [facility] 7.5 (H) 02/21/2017 09:30 AM HEMOGLOBIN A1C, [facility] 7.8 (H) 05/02/2020 08:23 AM - Discussed Healthy lifestyle, importance of exercise - Diet education - Reviewed labs Patient will establish with Dr. Garcia. Follow Up: Return in 1 year (on 07/13/2025) for 12 month Subsequent Adult Wellness Visit. | For: 12 month Subsequent Adult Wellness Visit | Check-out note: 12 month Subsequent Adult Wellness Visit Would patient like to schedule next AWV visit? Yes Shelli Umana RN Socks and Shoes Removed for Annual Diabetic Foot Screening RIGHT FOOT: No Reddened, Cracking, Or Open Areas Noted. RIGHT Dorsalis Pedis Pulse: Palpable RIGHT Posterior Tibial Pulse: Palpable RIGHT Monofilament:Patient reports difficulty feeling monofilament at Ball of Foot-base of 3rd toe LEFT FOOT: No Reddened, Cracking or Open Areas Noted. LEFT Dorsalis Pedis Pulse: Palpable LEFT Posterior Tibial Pulse: Palpable LEFT Monofilament:Patient reports feeling monofilament pressure on plantar surface of foot Do you need diabetic shoes: No Patient used to go to a crm coordinator, but they cut the nails too short, she said she will cut her nails and occasionally goes to have a pedicure done. Her big toes have onychomycosis noted. documented in this encounter Miscellaneous Notes * Pt Handout (on AVS) - Shelli Umana RN - 07/13/2024 10:38 AM EDT Images from the original note were not included. 22004 Diabetes: Learning About Serving and Portion Sizes Servings and portions. What?s the difference? These terms can be very confusing. But learning to measure serving sizes can help you figure out how many carbohydrates (carbs) and other foods you eat each day. They're also powerful tools for managing your weight. A good rule of thumb: Devote half your plate to vegetables and green salad. Split the other half between protein and starchy carbohydrates. Fruit makes a good dessert. Servings and portions Many different words are used to describe amounts of food. If your healthcare provider uses a term you?re not sure of, don?t be afraid to ask. It helps to know the difference between servings and portions: A serving size. This is a fixed size. Food producers use this term to describe their products. For instance, the label on a cereal box could say that 1 cup of dry cereal = 1 serving. A portion (also called a helping). This is how much you eat or how much you put on your plate brenda meal. For instance, you might eat 2 cups of cereal at breakfast. Watching serving sizes The portion you choose to eat (such as 2 cups of cereal) may be more than 1 serving as listed on the food label (such as 1 cup of cereal). That?s why it helps to measure or weigh the food you eat. Because the food label values are based on servings, you?ll need to know how many servings you eat at 1 sitting. When you?re planning for a snack or a meal, keep servings in mind. It's OK if you don?t have measuring cups or a scale handy. There are other ways to figure out serving sizes. For instance, you can compare the food to the size of your hand (see pictures below). Here are some general tips: About 3 ounces of meat fits in the palm of your hand 1 cup of food is about the size of your fist An open hand holds about 1 to 2 ounces of nuts Ounces: 2 to 3 ounces is about the size of your palm. 1 cup: 1 cup (or a medium-sized piece) is about the size of your fist. 1/2 cup: 1/2 cup is about the size of your cupped hand. Managing portion sizes If your weight is a concern, reducing your portions can help. A portion is the amount of each type of food on your plate. You can eat more than 1 serving of a food at once. But to keep from eating too much at 1 meal, learn how to manage your portions. Portion control will also help with blood sugarmanagement. Last Reviewed Date: 2023 00:00:00 5417-0204 [employer]. All rights reserved. This information is not intended as a substitute for professional medical care. Always follow your healthcare professional's instructions. * Pt Handout (on AVS) - Shelli Umana RN - 07/13/2024 10:38 AM EDT [id number] Diet: Diabetes Food is an important tool that you can use to control diabetes and stay healthy. Eating well-balanced meals in the correct amounts will help you control your blood glucose levels and prevent low blood sugar reactions. It will also help you reduce the health risks or complications of diabetes. Thereis no one specific diet that is right for everyone with diabetes and you can eat a variety of foods. But there are general guidelines to follow. A registered dietitian (RD) will create a tailored diet approach that?s just right for you. They will also help you plan healthy meals and snacks. If you have any questions, call your dietitian for advice. Guidelines for success Talk with your health care provider before starting a diabetes diet or weight loss program. If you haven't talked with a dietitian yet, ask your provider for a referral. The following guidelines can help you succeed: Select foods from the 6 food groups below. Your dietitian will help you find food choices withineach group. They will also show you serving sizes and how many servings you can have at each meal. o Grains, beans, and starchy vegetables. o Leafy vegetables. o Fruits. o Milk or yogurt. o Meat, poultry, fish, or tofu. o Healthy fats. Check your blood sugar levels as directed by your provider. Take any medicine as prescribed by your provider. Tell your provider if you are taking any other medicines, supplements, or herbal products. Learn to read food labels and pick the right portion sizes. Make a habit of including non-starchy vegetables, whole fruits, legumes, lean proteins, whole grains, nuts and seeds, and low-fat dairy or nondairy alternatives in your diet. Limit carbohydrates at each meal to help manage your diabetes. The carbohydrates you eat become glucose in the blood. This does not mean you can't eat carbohydrates. Talk with your health care provider about how many grams of carbohydrates are recommended for you at each meal. Eat 3 meals a day at consistent times. Don't skip meals. If you are hungry between meals, eat a small, low-carbohydrate snack. Talk with your health care provider if you drink alcohol. Alcohol can have unpredictable effectson blood glucose. It's also high in empty calories and can raise a type of blood fat called triglycerides. Drink water or calorie-free diet drinks instead. Eat less fat to help lower your risk of heart disease. Use nonfat or low-fat dairy products and lean meats. Stay away from fried foods. Use cooking oils that are unsaturated, such as olive, canola, or peanut oil. Don't eat foods with added salt. Salt can contribute to high blood pressure. This can cause heart disease. People with diabetes already have a risk for high blood pressure and heart disease. Limityour salt to less than 2300 mg/day. One way to do this is by avoiding processed foods. Stay at a healthy weight. If you need to lose weight, talk with your health care provider about new medicines that can help with weight loss. Cut down on your portion sizes. But never skip meals. Exercise is an important part of any weight management program. Talk with your provider about how you've exercised in the past and the unique exercise challenges you may face if you carry a large amount of extra weight. Discuss an exercise program that?s right for you. For more information about the best diet plan for you, talk with an RD. To find an RD in your area, contact: o Academy of Nutrition and Dietetics at www.eatright.org o [place] [employer] at www.diabetes.org or [phone] o Association of Diabetes [employer] and Education Specialists at www.diabeteseducator.org/ Last Reviewed Date: 2024 00:00:00 0209-4022 [employer]. All rights reserved. This information is not intended as a substitute for professional medical care. Always follow your healthcare professional's instructions. * Pt Handout (on AVS) - Shelli Umana RN - 07/13/2024 10:34 AM EDT Images from the original note were not included. 46350 Understanding Carbohydrates Just like a car needs the right type of fuel to run, you need the right kind of food to function. To keep your energy level up, your body needs food that has carbohydrates (carbs). But carbs raise blood sugar levels higher and faster than other kinds of food. Your dietitian will work with you to figure out the amount of carbs you need. Carbs come in 3 types: starches, sugars, and fiber. Starches Starches are found in grains, some vegetables, and beans. Grain products include bread, pasta, cereal, and tortillas. Starchy vegetables include potatoes, peas, corn, barry beans, yams, and squash. Kidney beans, pittman beans, black beans, garbanzo beans, and lentils also have starches. Sugars Sugars are found naturally in many foods. Or they can be added. Foods that contain natural sugar include fruits and fruit juices, dairy products, honey, and molasses. Added sugars are found in most desserts, processed foods, candy, regular soda, and fruit drinks. These are very helpful to treat lowblood sugar (hypoglycemia). They give you sugar quickly. Try to keep at least 15 to 20 grams of these simple sugars with you at all times. Eat or drink these if you start to have symptoms of low blood sugar. Fiber Fiber comes from plant foods. Your body can't digest most fiber. Instead of raising blood sugar levels like other carbs, fiber stops blood sugar from rising too quickly. Fiber is found in fruits, vegetables, whole grains, beans, peas, and many nuts. Understanding how to count your carbs Keep track of the amount of carbs you eat. This can help you keep the right balance of carbs, physical activity, and medicine. The amount of carbs you need will be different from what other people need. How much you need depends on many things. These include your health, the medicines you take, andhow active you are. Your healthcare team will help you figure out the right amount of carbs for you. You may start with 45 to 60 grams of carbs per meal, depending on your case. Carb counting is a system that helps you keep track of the carbohydrates you eat at each meal. Carbs come from many foods. These include grains, starchy vegetables, fruit, milk, beans, and snackfoods. You can either count carbohydrate grams or carbohydrate servings. When you count carbohydrate servings, 1 carbohydrate serving = 15 grams of carbohydrates. Here are some examples of foods that have about 15 grams of carbs (1 serving of carbohydrates): 1/2 cup of canned or frozen fruit A small piece of fresh fruit (4 ounces) 1 slice of bread 1/2 cup of oatmeal 1/3 cup of rice 4 to 6 crackers 1/2 Cambodian muffin 1/2 cup of black beans 1/4 of a large baked potato (3 ounces) 2/3 cup of plain fat-free yogurt 1 cup of soup 1/2 cup of casserole 6 chicken nuggets [id number] brownie or cake without frosting 2 small cookies 1/2 cup of ice cream or sherbet Carb counting is easier when food labels are available. Look at the label to see how many grams of total carbs per serving the food contains. Then you can figure out how much you should eat. If your food doesn't have a nutrition label, you should be able to get an idea of how many carbs there are per serving by using a book or website. Two very important lines to look at on the label are the serving size and the total carbohydrate amount per serving. Here are some tips for using food labels to count your carbs: Check the serving size. The information on the label is based on that serving size. If you eat more than the listed serving size, you may have to double or triple the other information on the label. Check the total grams of carbs. Total carbohydrate from the label includes sugar, starch, and fiber. Be sure to use the total carbohydrate number (minus the fiber) and not sugar alone. Know how many grams of carbs you can have. Be familiar with the matching portion sizes. Compare labels. Compare the labels of different products. Look at serving sizes and total carbs to find the products that work best for you. Don't forget protein and fat. With the focus on carb counting, it might be easy to forget protein and fat in your meals. Don't forget to include sources of protein and healthy fat to balance your meals. Also watch how much salt (sodium) you eat. This is especially true if you have high blood pressure. If you have diabetes, limit the amount of sodium to less than 2,300 mg a day. It?s also important to be consistent with the amount of carbs and time you eat when taking a fixed dose of diabetes medicine. Work with your healthcare provider or dietitian if you need more help. They can help you keep track of your carbs. They can also help you figure out how many grams of carbs you should have. Last Reviewed Date: 2023 00:00:00 [id number] [employer]. All rights reserved. This information is not intended as a substitute for professional medical care. Always follow your healthcare professional's instructions. * Pt Handout (on AVS) - Shelli Umana RN - 07/13/2024 10:34 AM EDT Images from the original note were not included. [id number] 5 Steps for Eating Healthier Changing the way you eat can improve your health. It can lower your cholesterol and blood pressure,and help you stay at a healthy weight. Your diet doesn?t have to be bland and boring to be healthy.Just watch your calories and follow these steps: Step 1. Eat fewer unhealthy fats Choose more fish and lean meats instead of fatty cuts of meat. Skip butter and lard, and use less margarine. Replace these with healthier fats, such as olive, canola, or avocado oils. Pass on foods that have palm, coconut, or partially hydrogenated oils. Eat fewer high-fat dairy foods like cheese, ice cream, and whole milk. Get a heart-healthy cookbook and try some new recipes. Step 2. Go light on salt Keep the saltshaker off the table. Limit high-salt ingredients, such as soy sauce, bouillon, and garlic salt. Instead of adding salt when cooking, season your food with herbs, spices, and other flavorings. Try lemon, garlic, onion, vinegar, or salt-free herb seasonings. Limit convenience foods, such as boxed or canned foods and restaurant food. Read food labels and choose lower-sodium options. Buy fresh, frozen, or canned vegetables that don't have added salt. Step 3. Limit sugar Pause before you add sugars to pancakes, cereal, coffee, or tea. This includes white and brown table sugar, syrup, honey, and molasses. Cut your usual amount by half. Swap out sugar-filled soda and other drinks. Buy sugar-free or low-calorie beverages. Remember, water is always the best choice. Try adding lemon juice to water for extra flavor. Read labels and choose foods with less added sugar. Keep in mind that dairy foods and foods withfruit will have some natural sugar. Cut the sugar in recipes by 1/3 to 1/2. Boost the flavor with extracts like almond, vanilla, or orange. Or add spices such as cinnamon or nutmeg. Step 4. Eat more fiber Eat fresh fruits and vegetables every day. Boost your diet with whole grains. Go for oats, whole-grain rice, and bran. Add beans and lentils to your meals. Drink more water to match your fiber increase to help prevent constipation. Step 5. Pay attention to serving sizes Remember that a serving size is a standard measurement. It will let you track the amount of fat,calories, and other nutrients in the food you eat. Read the Nutrition Facts label on packaged foods to learn their serving sizes. Use serving sizes to assess how much food you put on your plate. Pay attention to your portions.How many servings are you eating? Keep in mind that your needs may change if you?re more active or less active, or if you have other factors that change your calorie needs. Use your hand to help you measure serving sizes. For example: o 1 teaspoon: This is about the size of the first joint of your thumb. o 1 tablespoon: This is about the size of the first 2 joints of your thumb. o 1 ounce: This is about what you can fit in your cupped hand. o 2 to 3 ounces: This is about the size of the palm of your hand. o cup: This is also about what you can fit in your cupped hand. o 1 cup: This is about the size of your fist. Last Reviewed Date: 2022 00:00:00 [id number] [employer]. All rights reserved. This information is not intended as a substitute for professional medical care. Always follow your healthcare professional's instructions. documented in this encounter Plan of Treatment Upcoming Encounters Date Type Department Care Team (Late st Contact Info) Description 10/16/2024 11:00 AM EDT Office Visit [address] [place] [phone] Kori Mckeon MD [address] [place] [address] [place] [phone] 04/16/2025 11:00 AM EST Office Visit [address] [place] [phone] Kori Mckeon MD [address] [place] [address] [place] [phone] 07/16/2025 10:00 AM EDT Nurse Only Ancillary [address] [place] [address] Kathie Nurse Annual Wellness [address] [place] [address] [place] [phone] Scheduled Procedures Name Priority Associated Diagnoses Date/Ti [...] (2 - Td or Tdap) 03/07/2017 03/07/2007 COVID-19 Vaccine ( season) 2024 01/28/2024, 02/13/2023, 04/11/2022, Additional history exists Diabetic Eye Exam 08/15/2024 08/16/2023, , 08/14/2022, Additional history exists HbA1c 09/15/2024 03/18/2024, 05/0 12/2023, 05/23/2023, Additional history exists Albumin/Creatinine Ratio 03/18/202503/18/2 024, 05/23/2023, 01/17/2023, Additional history exists GFR 03/18/2025 03/18/2024, 05/0 12/2023, 05/23/2023, Additional history exists Mammogram 04/14/2025 04/14/2024, 120 10/2022, 04/10/2023, Additional history exists Adult Wellness Visit 07/13/2025 07/13/2024, 07/12/2023, 07/10/2022 Depression Screening 07/13/2025 07/13/2024 Diabetic Foot Exam 07/13/2025 07/13/2024, 0 07/12/2023, 03/28/2022, Additional history exists Colonoscopy 03/09/2027 03/09/2022, 110 08/2021, 06/09/2015, Additional history exists Colorectal Cancer Screening 03/09/2027 DXA Scan 03/28/2027 03/28/2020, 12/0 10/2016, 03/10/2013 Lipid Panel 03/18/2029 03/18/2024, 01/04, 03/28/2022, Additional history exists RETIRED - COLONOSCOPY-EVERY 5 YRS AGES 18-100 Discontinued 03/09/2022, 03/09/2022, 06/09/2015, Additional history exists Zoster Vaccines Completed 12/10/2022, 10/10/2022 Influenza Vaccine (FLU shot) Completed 01/22/2024, 01/16/2023, 02/09/2022, Additional history exists HPV (Gardasil) Vaccine Aged Out No lo nger eligible based on patient's age to complete this topic MENINGOCOCCAL (MENACTRA/MENVEO) Aged Out No longer eligible based on patient's age to complete this topic Meningitis B Vaccine (Bexsero/Trumemba) Aged Out No longer eligible based on patient's age to complete this topic documented as of this encounter Medical Devices Not on filedocumented as of this encounter Visit Diagnoses Diagnosis Routine general medical examination at a health care facility- Primary Type 2 diabetes mellitus with hemoglobin A1c goal of less than 7.0% (HCC) HTN, goal below 140/90 Unspecified essential hypertension Mixed hyperlipidemia Type 2 diabetes mellitus with hemoglobin A1c goal of less than 7.5% (HCC) documented in this encounter Care Teams Assistant Grocery Store Manager Relationship Specialty Start Date End Date Kori Mckeon MD [address] [place] [address] [place] [phone] PCP - General Family Medicine 07/13/24 documented as of this encounter
--- OUTSIDE RECORDS SUMMARY | 2024-08-04 17:21 | External Medical Summary | Summary of Care ---
Author Name Unknown Organization [facility] Address [address] [facility] [place] [address] Phone [phone] Care Team Providers Care Fish Hatchery Specialist Name Role Phone Kori Mckeon MD Primary Care Pr ovider Reason for Visit * Reason Comments Adult Annual Wellness Visit, Subsequent Visit Encounter Details Date Type Department Care Team (Late st Contact Info) Description 07/13/2024 10:00 AM EDT Nurse Only Ancillary [address] [place] [address] [place], Nurse Annual Wellness [address] [place] [address] [place] [phone] Adult Annual Wellness Visit, Subsequent Visit Allergies [...] ceylon cinnamon 2500mg daily "nature's truth". Active Zyraz TechnologyTouch Delica Lancets 33G Use to test blood sugars once daily DxE11.9 100 Each 3 3 Active OneTouch Verio Flex System Device Use to test blood sugars once daily DxE11.9 1 Each 3 Active Zyraz TechnologyTouch Verio In Vitro Strip (Glucose Blood) Use to test blood sugars once daily DxE11.9 100 Strip 3 3 Active SM Temperance-3 Oral Capsule Take by mouth. 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 Trulicity 3 [...] 1,245 pg/mL Sincerely, Kori Abdalla MD 07/13/2024 [facility] Calendar (as of 11/23/2016 (in office), Visit [...] your insurance company to determine what's covered. [employer] is a great tool that helps you review your medical record online, including test results, doctor notes and your health summary. You can also schedule appointments with me and other members of your care team, request prescription refills and ask for advice related to your medical conditions at [employer]org. Diabetes: Keeping Feet Healthy Inspect your feet [...] calluses yourself. Talk to your doctor or igniter capper (a doctor who specializes in foot care) [...] the area doesnt appear to be healing. [phone] [employer], [address] [place] [address], [place] [address]. All rights reserved. This information is not [...] performed by Franca Walters DO at [facility] COLONOSCOPY, DIAGNOSTIC (RECTUM) 03/09/2022 benign adenomatous polyp, diverticulosis, repeat 5 yrs / COLONOSCOPY FLEXIBLE PROXIMAL DIAGNOSTIC performed by Franca Walters, DO at [facility] CT SINUSES W WO CONTRAST 10/12/2006 mild nasal septal deviation mild chronic maxillary sinusitis CT SINUSES WO CONTRAST 07/19/2008 mild bilateral nonobstructing disease, nasal septum deviated to right ECHO,TTE W/O SPECTRAL + [place] [id number] - REMOVE TONSILS 20's MAMMOGRAM - 1 BREAST 03/24/2007 left breast, category 1 stable MAMMOGRAM SCREENING-BILATERAL 07/01/2006 left category 0, right category 1 MAMMOGRAM SCREENING-BILATERAL 06/22/2008 scattered fibroglandular densities, category 1 normal MRI FOOT W WO CONTRAST 05/10/2008 focal bone marrow edema/enthesopathy at attachment of right paroneus brevis tendon on base of cuhqq7ey metatarsal NM GASTRIC EMPTYING STUDY SOLID 09/30/2009 [...] COVID-19 mRNA, LNP-s, No Preserve, 2-Dose Series ([employer]) 07/04/2020, 07/25/2020, 03/08/2021 COVID-19, MRNA-LNP, PF, 30 MCG/0.3 mL, 12 YRS AND ABOVE, IM ([employer]) 01/28/2024 COVID-19, MRNA-LNP, PF, 50 MCG/0.5 [...] sugars once daily DxE11.9 100 Strip3 SM Temperance-3 Oral Capsule Take by mouth. Trulicity 3 [...] disturbances Visually impaired Older than age 70 Ctk-Rw-fxm-Go Test: Time began at 1000. Patient stood from sitting position and walked approximately 10 feet, returned and sat down. Total time for sti-cj-rrn-go test was 10 seconds. Uhq-On-pku-Go Test completed? Yes Gender Specific Preventative Plan: [...] hemoglobin A1c goal of less than 7.0% ([facility]) - DIABETES FOOT EXAM HTN, goal below 140/90 - Med reconciliation completed and compliance discussed. - pt to continue present medications. BP Readings from Last 3 Encounters: 07/13/24 164/70 04/16/24 138/58 04/06/24 160/68 Mixed hyperlipidemia - Med reconciliation completed and compliance discussed. - pt to continue present medications. Lab Results Component Value Date/Time LDL CHOLESTEROL (CALCULATED) - [employer] 33 03/18/2024 09:26 AM LDL CHOLESTEROL (CALCULATED) - ID.meER 80 07/02/2017 08:41 AM LDL CHOLESTEROL (DIRECT MEASURE) - ID.meER 96 06/20/2006 04:32 PM Type 2 diabetes mellitus with hemoglobin A1c goal of less than 7.5% ([facility]) - Med reconciliation completed and compliance [...] No Patient used to go to a igniter capper, but they cut the nails too short, she said she will cut her nails and occasionally goes to have a pedicure done. Her big toes have onychomycosis noted. documented in this encounter Miscellaneous Notes * Pt Handout (on AVS) - Shelli Umana RN - 07/13/2024 10:38 AM EDT Images from the original note were not included. [id number] Diabetes: Learning About Serving and Portion Sizes [...] blood sugarmanagement. Last Reviewed Date: 2023 00:00:00 9169-3789 The [employer]. All rights reserved. This information is not intended as a substitute for professional medical care. Always follow your healthcare professional's instructions. * Pt Handout (on AVS) - Shelli Umana RN - 07/13/2024 10:38 AM EDT [id number] Diet: Diabetes Food is an important tool [...] of Nutrition and Dietetics at www.eatright.org o [place] [employer] at www.diabetes.org or 128-323-0843 o Association of Diabetes Care and Education Specialists at www.diabeteseducator.org/ Last Reviewed Date: 2024 00:00:00 5283-5932 [employer]. All rights reserved. This information is not intended as a substitute for professional medical care. Always follow your healthcare professional's instructions. * Pt Handout (on AVS) - Shelli Umana RN - 07/13/2024 10:34 AM EDT Images from the original note were not included. 53657 Understanding Carbohydrates Just like a car needs [...] of rice 4 to 6 crackers 1/2 Indian muffin 1/2 cup of black beans 1/4 of a large baked potato (3 ounces) 2/3 cup of plain fat-free yogurt 1 cup of soup 1/2 cup of casserole 6 chicken nuggets [id number]-[id number] brownie or cake without frosting 2 small [...] should have. Last Reviewed Date: 2023 00:00:00 3942-8253 [employer]. All rights reserved. This information is not intended as a substitute for professional medical care. Always follow your healthcare professional's instructions. * Pt Handout (on AVS) - Shelli Umana RN - 07/13/2024 10:34 AM EDT Images from the original note were not included. 64760 5 Steps for Eating Healthier Changing the [...] your fist. Last Reviewed Date: 2022 00:00:00 [phone] [employer]. All rights reserved. This information is not intended as a substitute for professional medical care. Always follow your healthcare professional's instructions. documented in this encounter Plan of Treatment Upcoming Encounters Date Type Department Care Team (Late st Contact Info) Description 10/16/2024 11:00 AM EDT Office Visit [address] [place] [phone] Kori Mckeon MD [address] [place] [address] [place] [phone] 04/16/2025 11:00 AM EST Office Visit [address] [place] [phone] Kori Mckeon MD [address] [place] [address] [place] [phone] 07/16/2025 10:00 AM EDT Nurse Only Ancillary [address] [place] [address] Kathie Nurse Annual Wellness [address] [place] [address] [place] [address] Scheduled Procedures Name Priority Associated Diagnoses Date/Ti [...] (HCC) documented in this encounter Care Teams Fish Hatchery Specialist Relationship Specialty Start Date End Date Kori Mckeon MD [address] [place] [address] [place] [phone] PCP - General Family Medicine 07/13/24 documented as of this encounter
--- OUTSIDE RECORDS SUMMARY | 2024-08-04 17:22 | External Medical Summary | Summary of Care ---
Author Name Unknown Organization [facility] Address [address] [facility] [place] [address] Phone [phone] Care Team Providers Care Electronics Commodity Manager Name Role Phone Virgen Woodard MD Primary Care Provide r Reason for Visit * Reason Comments Medication Refill Encounter Details Date Type Department Care Team (Late st Contact Info) Description 04/23/2024 Refill Family Medicine [address] [place] [phone] Virgen Woodard MD [address] [place] [address] [place] [phone] HTN, goal below 140/90 Allergies Active Allergy Reactions Criticality Noted Date Comments Amoxicillin 04/10/2004 Facial swelling Ciprofloxacin 09/14/2008 Abdominal cramps Felodipine Cr 11/17/2008 RED ALL OVER Hydralazine Hcl 11/29/2008 rash Sulfa Antibiotics 10/15/2000 Septra gave bad lower abd. cramps documented as of this encounter (statuses as of 04/23/2024) Medications MULTI-DAY TABS OR one a day [...] ceylon cinnamon 2500mg daily "nature's truth". Active Triton Algae InnovationsTouch Delica Lancets 33G Use to test blood sugars once daily DxE11.9 100 Each 3 3 Active OneTouch Verio Flex System Device Use to test blood sugars once daily DxE11.9 1 Each 3 Active OneTouch Verio In Vitro Strip (Glucose Blood) Use to test blood sugars once daily DxE11.9 100 Strip 3 3 Active SM Linwood-3 Oral Capsule Take by mouth. Active Empagliflozin 25 MG Oral Tablet (Jardiance)Indicat ions:Type 2 diabetes mellitus with hemoglobin A1c goal of less than 7.0% (HCC) TAKE ONE TABLET BY MOUTH EVERY MORNING 100 Tablet 3 03/16/2024 12:31 PM EST 4 025 Active Trulicity 3 MG/0.5ML [...] 3 04/13/2024 12:45 PM EST 4 Active Neomycin-Polymyxin -HC Ophthalmic SuspensionIndicati ons:Acute conjunctivitis of right eye, unspecified acute conjunctivitis type Instill 1 Drop into the right eye in the morning and 1 Drop at noon and 1 Drop in the evening and 1 Drop before bedtime. In affected eye while awake.. 7.5 mL 1 4 Active metFORMIN HCl 1000 MG Oral Tablet (Glucophage)Indica tions:Type 2 diabetes mellitus with hemoglobin A1c goal of less than 7.5% (HCC) Take 1 Tablet by mouth 2 times a day with morning and evening meals. 180 Tablet 4 Active amLODIPine Besylate 10 MG Oral [...] NIGHT AT BEDTIME 90 Tablet 3 4 025 Active Metoprolol Succinate ER 25 MG Oral Tablet Extended Release 24 Hour (toPROL XL)Indications:HTN , goal below 140/90 TAKE 1 TABLET BY MOUTH AT NIGHT AT BEDTIME 90 Tablet 3 01/27/2024 11:41 AM EDT 3 024 Discontin ued(Refil l) documented as of this encounter (statuses as of 04/23/2024) Active Problems Problem Noted Date Diagnosed Date [...] as of this encounter (statuses as of 04/23/2024) Resolved Problems Problem Noted Date Diagnosed Date [...] as of this encounter (statuses as of 04/23/2024) Immunizations Name Administration Dates Next Due COVID-19 [...] ages 0-17 years) Not on file 07/12/2023 Comments No Sex and Gender Information Value Date Recorded Sex Assigned at Female 07/10/2022 3:57 PM EST Legal Sex Female 5:26 AM EST Gender Identity Female 07/10/2022 3:57 PM EST Sexual Orientation Straight 07/10/2022 3: 57 PM EST Occupation Industry Job Start Date Job End Date [employer] Not on file Not on file Not on file documented as of this encounter Miscellaneous Notes * Telephone Encounter - Aura Portillo [facility] - 04/23/2024 4:17 PM ESTSigned Prescriptions: Disp Refills Metoprolol Succinate ER 25 MG Oral Tablet *90 Tab*3 Sig: TAKE 1 TABLET BY MOUTH AT NIGHT AT BEDTIME Authorizing Provider: VIRGEN WOODARD Ordering User: AURA PORTILLO * Telephone Encounter - Amy Cruz floor plan adjuster - 04/23/2024 3:18 PM EST Did you pend patient's preferred pharmacy and medication before forwarding?yes Pharmacy: [facility] Pending Prescriptions: Disp Refills Metoprolol Succinate ER 25 MG Oral Tablet*90 Tab*3 Sig: TAKE 1 TABLET BY MOUTH AT NIGHT AT BEDTIME Last Visit: 04/16/2024 (in office), Visit date not found (telemedicine) Next Visit: 10/16/2024 If no future appointments scheduled, and last appointment is greater than a year ago, please schedule patient for a follow-up appointment Last date the medication was ordered: 05/05/2023 Is this request for a controlled substance?No Urine Drug Screen:No results found for this or any previous visit. Patient Phone Numbers Labs: Lab Results Component Value Date/Time CREAT 0.7 03/18/2024 09:26 AM CREAT 0.78 01/11/2022 12:00 AM CREAT 0.8 10/28/2017 09:15 AM POTASSIUM 4.9 03/18/2024 09:26 AM POTASSIUM 4.5 01/11/2022 12:00 AM POTASSIUM 4.4 10/28/2017 09:15 AM TSH 2.10 05/23/2023 09:41 AM TSH 2.700 08/31/2021 12:00 AM TSH 2.51 08/16/2012 08:28 AM LDL 33 03/18/2024 09:26 AM LDL 80 07/02/2017 08:41 AM ALT 25 05/23/2023 09:41 AM ALT 21 10/28/2017 09:15 AM ALT 22 08/18/1996 10:07 AM HGBA1C 8.1 (H) 03/18/2024 09:26 AM HGBA1C 8.1 (A) 01/11/2022 12:00 AM HGBA1C 7.8 (H) 05/02/2020 08:23 AM HGBA1C 7.3 (H) 10/28/2017 09:15 AM documented in this encounter Plan of Treatment Upcoming Encounters Date Type Department Care Team (Late st Contact Info) Description 07/13/2024 10:00 AM EDT Nurse Only Ancillary [address] [place] [phone] Kathie, Nurse Annual Wellness [address] [place] [address] [place] [phone] 10/16/2024 10:40 AM EDT Office Visit [address] [place] [phone] Bernie Stokes CRNP [address] [place] [address] [place] [phone] 04/16/2025 10:40 AM EST Office Visit [address] [place] [phone] Virgen Woodard MD [address] [place] [address] [place] [phone] Scheduled Procedures Name Priority Associated Diagnoses Date/Ti me COLONOSCOPY FLEXIBLE PROXIMAL DIAGNOSTIC Recall History of colon polyps Health Maintenance Due Date Last Done Comments Hepatitis C Screening 07/24/1967 Cologuard 1994 Sigmoidoscopy 1994 Pneumococcal Vaccine: 65+ Years (2 of 2 - PCV) 05/26/2003 [...] Cancer Screening 03/09/2027 DXA Scan 03/28/2027 03/28/2020, 120 10/2016, 03/10/2013 Lipid Panel 03/18/2029 03/18/2024, 01/04, [...] as of this encounter Visit Diagnoses Diagnosis HTN, goal below 140/90 Unspecified essential hypertension documented in this encounter Care Teams Electronics Commodity Manager Relationship Specialty Start Date End Date Virgen Woodard MD [address] [place] [address] [place] [address] PCP - General Family Medicine 03/28/22 documented as of this encounter
--- OUTSIDE RECORDS SUMMARY | 2024-08-04 17:22 | External Medical Summary | Summary of Care ---
Author Name Unknown Organization [facility] Address [address] [facility] [place] [address] Phone [phone] Care Team Providers Care Crew Foreman Name Role Phone Virgen Woodard MD Primary Care Provide r Reason for Visit * Reason Comments Acute Encounter Details Date Type Department Care Team (Late st Contact Info) Description 04/06/2024 1:20 PM EST Office Visit Family Medicine [address] [place] [phone] Bernie Stokes [address] [place] [address] Acute non-recurrent maxillary sinusitis*; Bronchitis Allergies Active Allergy Reactions Criticality Noted Date Comments Amoxicillin 04/10/2004 Facial swelling Ciprofloxacin 09/14/2008 Abdominal cramps Felodipine Cr 11/17/2008 RED ALL OVER Hydralazine Hcl 11/29/2008 rash Sulfa Antibiotics 10/15/2000 Septra gave bad lower abd. cramps documented as of this encounter (statuses as of 04/06/2024) Medications MULTI-DAY TABS OR one a day [...] ceylon cinnamon 2500mg daily "nature's truth". Active Branching MindsTouch Delica Lancets 33G Use to test blood sugars once daily DxE11.9 100 Each 3 3 Active [employer] MindsTouch Verio Flex System Device Use to test blood sugars once daily DxE11.9 1 Each 3 Active [employer] MindsTouch Verio In Vitro Strip (Glucose Blood) Use to test blood sugars once daily DxE11.9 100 Strip 3 3 Active SM Sweetser-3 Oral Capsule Take by mouth. Active Metoprolol Succinate ER 25 MG Oral Tablet Extended Release 24 Hour (toPROL XL)Indications:HTN, goal below 140/90 TAKE 1 TABLET BY MOUTH AT NIGHT AT BEDTIME 90 Tablet 3 01/27/2024 11:41 AM EDT 3 05/04/20 24 Active Empagliflozin 25 MG Oral Tablet (Jardiance)Indicati ons:Type 2 diabetes mellitus with hemoglobin A1c goal of less than 7.0% (HCC) TAKE ONE TABLET BY MOUTH EVERY MORNING 100 Tablet 3 03/16/2024 12:31 PM EST 4 09/20/19 25 Active Trulicity 3 MG/0.5ML Subcutaneous Solution Pen-injector (Dulaglutide) Inject 3 mg under the skin once a week. 2 mL 11 4 Active Cetirizine HCl 10 MG Oral Tablet (ZyrTEC Allergy)Indications :Allergic conjunctivitis, bilateral Take 1 Tablet by mouth in the morning. 30 Tablet 5 4 Active Atorvastatin Calcium 10 MG Oral Tablet (Lipitor)Indication s:History of CVA (cerebrovascular accident) without residual deficits TAKE 1 TABLET BY MOUTH EVERY OTHER DAY 45 Tablet 4 Active Losartan Potassium 100 MG Oral Tablet (Cozaar)Indications :HTN, goal below 130/80 Take 1 Tablet by mouth in the morning. 90 Tablet 3 01/14/2024 4:45 PM EDT 4 Active Neomycin-Polymyxin- HC Ophthalmic SuspensionIndicatio ns:Acute conjunctivitis of right eye, unspecified acute conjunctivitis type Instill 1 Drop into the right eye in the morning and 1 Drop at noon and 1 Drop in the evening and 1 Drop before bedtime. In affected eye while awake.. 7.5 mL 1 4 Active metFORMIN HCl 1000 MG Oral Tablet (Glucophage)Indicat ions:Type 2 diabetes mellitus with hemoglobin A1c goal of less than 7.5% (HCC) Take 1 Tablet by mouth 2 times a day with morning and evening meals. 180 Tablet 4 Active amLODIPine Besylate 10 MG Oral Tablet (Norvasc)Indication s:HTN, goal below 140/90 TAKE ONE TABLET BY MOUTH EVERY EVENING AT BEDTIME 100 Tablet 3 4 Active Azithromycin 250 MG Oral Tablet (Zithromax)Indicati ons:Acute non-recurrent maxillary sinusitis,Bronchiti s Take 2 tabs by mouth on the first day, then 1 tab daily on days two through five 6 Tablet 4 04/11/20 24 Active documented as of this encounter (statuses as of 04/06/2024) Active Problems Problem Noted Date Diagnosed Date [...] as of this encounter (statuses as of 04/06/2024) Resolved Problems Problem Noted Date Diagnosed Date [...] (08/02/2009): Per Obesity Taxonomy BENIGN HYPERTENSION 03/11/20 09 Overview (03/11/2009): Modified per HTN Taxonomy. 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 file Not on file Not on file documented as of this encounter Last Filed Vital Signs Vital Sign Reading Time Taken Comments Blood Pressure 160/68 04/06/2024 1:25 PM EST Pulse 104 04/06/2024 1:25 PM EST Temperature 36.4 C (97.5 F) 04/06/2024 1:25 PM ES T Respiratory Rate 16 04/06/2024 1:25 PM EST Oxygen Saturation 94% 04/06/2024 1:25 PM EST Inhaled Oxygen Concentration - - Weight 90.3 kg (199 lb) 04/06/2024 1:25 PM EST Height - - Body Mass Index 32.12 01/22/2024 12:12 PM EDT documented in this encounter Progress Notes * Bernie Stokes CRNP - 04/06/2024 1:28 PM EST Images from the original note were not included. History of Present Illness Darlene Torres is a 73 year old female that presents for Acute Concerns today for cold symptoms that started 3 weeks ago. Associated with congestion, cough, b/l eye drainage. Cough is productive with barraza sputum. Intermittent right ear pain. Has tried coricidin without much relief. Also using cough drops. Denies any fever or chills. Denies any headache, sore throat, cp, sob. Patient Active Problem List Diagnosis Metabolic syndrome Diverticulosis of colon PLANTAR FIBROMATOSIS Other ovarian dysfunction Prolapse of vaginal melendrez Other allergic rhinitis Generalized osteoarthritis Type 2 diabetes mellitus with hemoglobin A1c goal of less than 7.5% (HCC) FATTY LIVER Irritable bowel syndrome Essential tremor History of CVA (cerebrovascular accident) HTN, goal below 140/90 Mixed hyperlipidemia Current Outpatient Medications Medication Sig Dispense Refill [...] sugars once daily DxE11.9 100 Strip3 SM Sweetser-3 Oral Capsule Take by mouth. Metoprolol Succinate ER 25 MG Oral Tablet Extended Release 24 Hour (toPROL XL) TAKE 1 TABLET BY MOUTH AT NIGHT AT BEDTIME 90 Tablet 3 Empagliflozin 25 MG Oral Tablet (Jardiance) TAKE ONE TABLET BY MOUTH EVERY MORNING 100 Tablet 3 Trulicity 3 MG/0.5ML Subcutaneous Solution Pen-injector (Dulaglutide) Inject 3 mg under the skin once a week. 2 mL 11 Cetirizine HCl 10 MG Oral Tablet (ZyrTEC Allergy) Take 1 Tablet by mouth in the morning. 30 Tablet 5 Atorvastatin Calcium 10 MG Oral Tablet (Lipitor) TAKE 1 TABLET BY MOUTH EVERY OTHER DAY 45 Tablet 0 Losartan Potassium 100 MG Oral Tablet (Cozaar) Take 1 Tablet by mouth in the morning. 90 Tablet 3 Pubbakqw-Azrrlybls-HS Ophthalmic Suspension Instill 1 Drop into the right eye in the morning and 1 Drop at noon and 1 Drop in the evening and 1 Drop before bedtime. In affected eye while awake.. 7.5 mL 1 metFORMIN HCl 1000 MG Oral Tablet (Glucophage) Take 1 Tablet by mouth 2 times a day with morning and evening meals. 180 Tablet 0 amLODIPine Besylate 10 MG Oral Tablet (Norvasc) TAKE ONE TABLET BY MOUTH EVERY EVENING AT BEDTIME 100 Tablet 3 No current facility-administered medications for this visit. Review of patient's allergies indicates: Allergen Reactions Amoxicillin Facial swelling Ciprofloxacin Abdominal cramps Felodipine Cr RED ALL OVER Hydralazine Hcl rash Sulfa Antibiotics Septra gave bad lower abd. cramps Past Medical History: Diagnosis Date Abnormal involuntary [...] performed by Franca Walters DO at [facility] COLONOSCOPY, DIAGNOSTIC (RECTUM) 03/09/2022 benign adenomatous polyp, diverticulosis, repeat 5 yrs / COLONOSCOPY FLEXIBLE PROXIMAL DIAGNOSTIC performed by Franca Walters DO at [facility] CT SINUSES W WO CONTRAST 10/12/2006 mild nasal septal deviation mild chronic maxillary sinusitis CT SINUSES WO CONTRAST 07/19/2008 mild bilateral nonobstructing disease, nasal septum deviated to right ECHO,TTE W/O SPECTRAL + [place] [id number] - REMOVE TONSILS 20's MAMMOGRAM - 1 BREAST 03/24/2007 left breast, category 1 stable MAMMOGRAM SCREENING-BILATERAL 07/01/2006 left category 0, right category 1 MAMMOGRAM SCREENING-BILATERAL 06/22/2008 scattered fibroglandular densities, category 1 normal MRI FOOT W WO CONTRAST 05/10/2008 focal bone marrow edema/enthesopathy at attachment of right paroneus brevis tendon on base of [id number] metatarsal NM GASTRIC EMPTYING STUDY SOLID 09/30/2009 normal halftime of gastric emptying of 81 minutes REMOVE GALLBLADDER Cholecystectomy SIGMOIDOSCOPY, DIAGNOSTIC 2004 diverticulosis TOTAL ABD HYSTERECTOMY W/WO REMOVAL OF TUBE(S) endometriosis VASC DUPLEX VENOUS LE UNILAT 02/16/2008 normal left leg Social History Socioeconomic History Marital status: Spouse name: Not on file Number of children: 2 Years of education: Not on file Highest education level: Not on file Occupational History 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 (Adult - for ages 18 years and over): No Does your family have trouble paying for medicine? (Household - for ages 0-17 years): Not on file Food Insecurity: No Food Insecurity (07/12/2023) Food Insecurity Do you need food for this week? (Adult - for ages 18 years and over): No Are you able to get enough food for your family? (Household - for ages 0-17 years): Not on file Does your family need food this week? (Household - for ages 0-17 years): Not on file Do you always have enough food for your family? (Household - for ages 0-17 years): Not on file Transportation Needs: No Transportation Needs (07/12/2023) Transportation Needs Do you have trouble getting a ride to medical visits or work? (Adult - for ages 18 years and over):Never True Does your family have a hard time getting a ride to doctors visits? (Household - for ages 0-17 years): Not on file Has lack of transportation kept you from medical appointments, meetings, work, or from getting things needed for daily living? Check all that apply. (Adult - for ages 18 years and over): Not on file Do you (or your family) have trouble finding or paying for a ride (transportation)? (Household - for ages 0-17 years): Not on file Social Connections: Socially Integrated (07/12/2023) Social Connections How often do you feel lonely or isolated from those around you? (Adult - for ages 18 years and over): Sometimes Housing Stability: Low Risk (07/12/2023) Housing Stability Do you currently live in a retirement or have no steady place to sleep at night? (Adult - for ages 18 years and over): No Do you think you are at risk of becoming homeless? (Adult - for ages 18 years and over): No Does your family worry about paying for your home or becoming homeless? (Household - for ages 0-17 years): Not on file Are you homeless or worried that you might be in the future? (Adult - for ages 18 years and over): Not on file Are you (or your family) homeless or worried that you might be in the future? (Household - for ages0-17 years): Not on file Physical Exam Vitals: 04/06/24 1325 Temp: 97.5 F (36.4 C) Pulse: 104 Resp: 16 SpO2: 94% BP: 160/68 General: A&Ox3 and no distress Head: Normocephalic and atraumatic Eye Exam: PERRLA, conjunctiva are pink and non-injected, sclera clear Ears: External ears normal, Canals clear, TM's Normal Nose: no mucosal erythema, no mucosal edema, no purulent discharge Oropharynx: no exudate, no erythema, lips, buccal mucosa, and tongue normal, and mucous membranes are moist Neck: supple, no adenopathy, thyroid normal size, non-tender, without nodularity Heart: regular rate & rhythm, no murmur, no gallops, S-1 normal, and S-2 normal Lungs: normal respiratory rate and rhythm, lungs clear to auscultation I have reviewed the following results: BMP results Recent Labs Units 03/18/24 0926 09/11/23 1207 05/23/23 0941 SODIUM - [facility] mmol/L 137 142 139 POTASSIUM - [facility] mmol/L 4.9 4.8 4.9 CHLORIDE - [facility] mmol/L 100 108* 105 CO2 - [facility] mmol/L 22 21* 23 CREATININE - [facility] mg/dL 0.7 0.7 0.8 BUN - [facility] mg/dL 16 20 19 Assessment and Plan Acute non-recurrent maxillary sinusitis (Primary) - Azithromycin 250 MG Oral Tablet (Zithromax); Take 2 tabs by mouth on the first day, then 1 tab daily on days two through five Bronchitis - Azithromycin 250 MG Oral Tablet (Zithromax); Take 2 tabs by mouth on the first day, then 1 tab daily on days two through five - rest and drink plenty of fluids - OTC Coricidin - cool mist humidifier - throat lozenges Wrap-Up Follow Up: Return if symptoms worsen or fail to improve. Time: I spent a total of 10-19 minutes (exact time 11 mins) on the date of service in preparation, delivery, and documentation of the care provided to Darlene Torres excluding any time spent in the performance of separately billed services. Cosigned by Virgen Woodard MD at 04/06/2024 1:42 PM EST documented in this encounter Nursing Notes * Deena Eric LPN - 04/06/2024 1:23 PM EST Has a cold for 3 weeks. Now coughing up brown stuff. Cough, congestion. documented in this encounter Plan of Treatment Upcoming Encounters Date Type Department Care Team (Late st Contact Info) Description 04/14/2024 11:00 AM EST Imaging Radiology [address] [place] [phone] 04/16/2024 9:00 AM EST Office Visit Family Medicine [address] [place] [phone] Virgen Woodard MD [address] [place] [address] [place] [address] 07/13/2024 10:00 AM EDT Nurse Only Ancillary [address] [place] [address] [place], Nurse Annual Wellness [address] [place] [address] [place] [address] Scheduled Procedures Name Priority Associated Diagnoses Date/Ti [...] (2 - Td or Tdap) 03/07/2017 03/07/2007 Mammogram 04/10/2024 04/10/2023, 10/2022, 04/05/2022, Additional history exists Adult Wellness Visit 07/11/2024 07/12/2023, 07/11/19 Depression Screening 07/11/2024 07/12/2023 Diabetic Foot Exam 07/11/2024 07/12/2023, 1 05/28/2021, 04/07/2009, Additional history exists Diabetic Eye Exam 08/15/2024 08/16/2023, , 08/14/2022, Additional history exists HbA1c 09/15/2024 03/18/2024, 05/0 12/2023, 05/23/2023, Additional history exists Albumin/Creatinine Ratio 03/18/2025 024, 05/23/2023, 01/17/2023, Additional history exists GFR 03/18/2025 03/18/2024, 05/0 12/2023, 05/23/2023, Additional history exists Colonoscopy 03/09/2027 03/09/2022, 08/2021, [...] as of this encounter Visit Diagnoses Diagnosis Acute non-recurrent maxillary sinusitis- Primary Bronchitis Bronchitis, not specified as acute or chronic documented in this encounter Care Teams Crew Foreman Relationship Specialty Start Date End Date Virgen Woodard MD [address] [place] [address] [place] [address] PCP - General Family Medicine 03/28/22 documented as of this encounter
--- OUTSIDE RECORDS SUMMARY | 2024-08-04 17:22 | External Medical Summary | Summary of Care ---
Author Name Unknown Organization [facility] Address [address] [facility] [place] [address] Phone [phone] Care Team Providers Care Program Project Manager Name Role Phone Virgen Woodard MD Primary Care Provide r Reason for Visit * Reason Comments Medication Refill Encounter Details Date Type Department Care Team (Late st Contact Info) Description 04/03/2024 Refill Family Medicine [address] [place] [phone] Virgen Woodard MD [address] [place] [address] [place] [address] HTN, goal below 140/90 Allergies Active Allergy Reactions Criticality Noted Date Comments Amoxicillin 04/10/2004 Facial swelling Ciprofloxacin 09/14/2008 Abdominal cramps Felodipine Cr 11/17/2008 RED ALL OVER Hydralazine Hcl 11/29/2008 rash Sulfa Antibiotics 10/15/2000 Septra gave bad lower abd. cramps documented as of this encounter (statuses as of 04/03/2024) Medications MULTI-DAY TABS OR one a day [...] ceylon cinnamon 2500mg daily "nature's truth". Active [employer] Delica Lancets 33G Use to test blood sugars once daily DxE11.9 100 Each 3 02/13/20 23 Active [employer]etownTouch Verio Flex System Device Use to test blood sugars once daily DxE11.9 1 Each 02/13/20 23 Active [employer]etownTouch Verio In Vitro Strip (Glucose Blood) Use to test blood sugars once daily DxE11.9 100 Strip 3 04/11/20 23 Active SM [place]-3 Oral Capsule Take by mouth. Activ e Metoprolol Succinate ER 25 MG Oral Tablet Extended Release 24 Hour (toPROL XL)Indications:HTN , goal below 140/90 TAKE 1 TABLET BY MOUTH AT NIGHT AT BEDTIME 90 Tablet 3 4 11:41 AM EDT 05/05/20 23 024 Active Empagliflozin 25 MG Oral Tablet (Jardiance)Indicat [...] morning. 30 Tablet 5 11/21/19 24 Active Atorvastatin Calcium 10 MG Oral Tablet (Lipitor)Indicatio ns:History of CVA (cerebrovascular accident) without residual deficits TAKE 1 TABLET BY MOUTH EVERY OTHER DAY 45 Tablet 01/09/20 24 Active Losartan Potassium 100 MG Oral Tablet (Cozaar)Indication s:HTN, goal below 130/80 Take 1 Tablet by mouth in the morning. 90 Tablet 3 4 4:45 PM EDT 01/13/20 24 Active Neomycin-Polymyxin -HC Ophthalmic SuspensionIndicati ons:Acute conjunctivitis of right eye, unspecified acute conjunctivitis type Instill 1 Drop into the right eye in the morning and 1 Drop at noon and 1 Drop in the evening and 1 Drop before bedtime. In affected eye while awake.. 7.5 mL 1 01/22/20 24 Active Additional Information Patient not taking.Reported on 03/18/2024 metFORMIN HCl 1000 MG Oral Tablet (Glucophage)Indica tions:Type 2 diabetes mellitus with hemoglobin A1c goal of less than 7.5% (HCC) Take 1 Tablet by mouth 2 times a day with morning and evening meals. 180 Tablet 03/18/20 24 Active amLODIPine Besylate 10 MG Oral Tablet (Norvasc)Indicatio ns:HTN, goal below 140/90 TAKE ONE TABLET BY MOUTH EVERY EVENING AT BEDTIME 100 Tablet 3 04/03/20 24 Active amLODIPine Besylate 10 MG Oral Tablet (Norvasc)Indicatio ns:HTN, goal below 140/90 TAKE ONE TABLET BY MOUTH EVERY EVENING AT BEDTIME 100 Tablet 1 4 10:55 AM EDT 09/20/19 24 024 Discontin ued(Refil l) documented as of this encounter (statuses as of 04/03/2024) Active Problems Problem Noted Date Diagnosed Date [...] as of this encounter (statuses as of 04/03/2024) Resolved Problems Problem Noted Date Diagnosed Date [...] as of this encounter (statuses as of 04/03/2024) Immunizations Name Administration Dates Next Due COVID-19 [...] 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 Not on file Not on file documented as of this encounter Miscellaneous Notes * Telephone Encounter - Kaitlin Huang [facility] - 04/03/2024 3:35 PM ESTSigned Prescriptions: Disp Refills amLODIPine Besylate 10 MG Oral Tablet (Nor*100 Ta*3 Sig: TAKE ONE TABLET BY MOUTH EVERY EVENING AT BEDTIMEAuthorizing Provider: Edith WOODARD User: KAITLIN HUANG documented in this encounter Plan of Treatment Upcoming Encounters Date Type Department Care Team (Late st Contact Info) Description 04/14/2024 11:00 AM EST Imaging Radiology [address] [place] [address] 04/16/2024 9:00 AM EST Office Visit Family Medicine [address] [place] [phone] Virgen Woodard MD [address] [place] [address] [place] [address] 07/13/2024 10:00 AM EDT Nurse Only Ancillary [address] [place] [address] [place], Nurse Annual [address] [place] [address] Scheduled Procedures Name Priority Associated Diagnoses Date/Ti [...] Cancer Screening 03/09/2027 DXA Scan 03/28/2027 03/28/2020, 1210/2016, 03/10/2013 Lipid Panel 03/18/2029 03/18/2024, 01/04, 03/28/2022, [...] hypertension documented in this encounter Care Teams Program Project Manager Relationship Specialty Start Date End Date Virgen Woodard MD [address] [place] [address] [place] [phone] PCP - General Family Medicine 03/28/22 documented as of this encounter
--- OUTSIDE RECORDS SUMMARY | 2024-08-04 17:22 | External Medical Summary | Summary of Care ---
Author Name Unknown Organization [facility] Address [address] [facility] [place] [address] Phone [phone] Care Team Providers Care Dolphin Trainer Name Role Phone Virgen Woodard MD Primary Care Provide r Reason for Visit * Reason Comments eRx-Medication Refill Encounter Details Date Type Department Care Team (Late st Contact Info) Description 03/16/2024 Refill Family Medicine [facility] [place] [place] [phone] Virgen Woodard MD [address] [place] [address] [place] [phone] Routine medical exam*; Type 2 diabetes mellitus with hemoglobin A1c goal of less than 7.5% ([facility]); Encounter for long-term (current) use of medications Allergies Active Allergy Reactions Criticality Noted Date Comments Amoxicillin 04/10/2004 Facial swelling Ciprofloxacin 09/14/2008 Abdominal cramps Felodipine Cr 11/17/2008 RED ALL OVER Hydralazine Hcl 11/29/2008 rash Sulfa Antibiotics 10/15/2000 Septra gave bad lower abd. cramps documented as of this encounter (statuses as of 03/18/2024) Medications MULTI-DAY TABS OR one a day 0 001 Active Cholecalciferol (VITAMIN D3) 5000 UNITS Tablet Take 1 Capsule by mouth in the morning. Active Aspirin EC 81 MG Oral Tablet Delayed ReleaseIndication s:Cerebrovascular disease, arteriosclerotic, post-stroke Take 1 Tablet (81 mg) by mouth in the morning. 100 Tablet 3 022 Active Hair/Skin/Nails Oral Tablet Take 1 Tablet by mouth in the morning. Active Cinnamon 500 MG Oral Capsule Take 5 Capsules by mouth in the morning. Pt takes ceylon cinnamon 2500mg daily "nature's truth". Active HyperpiaTouch Delica Lancets 33G Use to test blood sugars once daily DxE11.9 100 Each 3 023 Active HyperpiaTouch Verio Flex System Device Use to test blood sugars once daily DxE11.9 1 Each 023 Active HyperpiaTouch Verio In Vitro Strip (Glucose Blood) Use to test blood sugars once daily DxE11.9 100 Strip 3 023 Active SM [place]-3 Oral Capsule Take by mouth. Activ e Metoprolol Succinate ER 25 MG Oral Tablet Extended Release 24 Hour (toPROL XL)Indications:HT N, goal below 140/90 TAKE 1 TABLET BY MOUTH AT NIGHT AT BEDTIME 90 Tablet 3 4 11:41 AM EDT 023 2023 Active Empagliflozin 25 MG Oral Tablet (Jardiance)Indica tions:Type 2 diabetes mellitus with hemoglobin A1c goal of less than 7.0% (HCC) TAKE ONE TABLET BY MOUTH EVERY MORNING 100 Tablet 3 4 12:31 PM EST 024 2024 Active amLODIPine Besylate 10 MG Oral Tablet (Norvasc)Indicati ons:HTN, goal below 140/90 TAKE ONE TABLET BY MOUTH EVERY EVENING AT BEDTIME 100 Tablet 1 4 10:55 AM EDT 024 Active Trulicity 3 MG/0.5ML Subcutaneous Solution Pen-injector (Dulaglutide) Inject 3 mg under the skin once a week. 2 mL 11 Active Cetirizine HCl 10 MG Oral Tablet (ZyrTEC Allergy)Indicatio ns:Allergic conjunctivitis, bilateral Take 1 Tablet by mouth in the morning. 30 Tablet 5 024 Active Atorvastatin Calcium 10 MG Oral Tablet (Lipitor)Indicati ons:History of CVA (cerebrovascular accident) without residual deficits TAKE 1 TABLET BY MOUTH EVERY OTHER DAY 45 Tablet Active Losartan Potassium 100 MG Oral Tablet (Cozaar)Indicatio ns:HTN, goal below 130/80 Take 1 Tablet by mouth in the morning. 90 Tablet 3 4 4:45 PM EDT Active Neomycin-Polymyxi n-HC Ophthalmic SuspensionIndicat ions:Acute conjunctivitis of right eye, unspecified acute conjunctivitis type Instill 1 Drop into the right eye in the morning and 1 Drop at noon and 1 Drop in the evening and 1 Drop before bedtime. In affected eye while awake.. 7.5 mL 1 Active Additional Information Patient not taking.Reported on 03/18/2024 metFORMIN HCl 1000 MG Oral Tablet (Glucophage)Indic ations:Type 2 diabetes mellitus with hemoglobin A1c goal of less than 7.5% (HCC) Take 1 Tablet by mouth 2 times a day with morning and evening meals. 180 Tablet Active metFORMIN HCl 1000 MG Oral Tablet (Glucophage)Indic ations:Type 2 diabetes mellitus with hemoglobin A1c goal of less than 7.5% (HCC) Take 1 Tablet by mouth 2 times a day with morning and evening meals. 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 Zero refills given until in process labs result. Thank you, Roro Diaz, PharmD Clinical Pharmacist [facility] 03/18/24 10:47 AM [phone] documented in this encounter Plan of Treatment Upcoming Encounters Date Type Department Care Team (Late st Contact Info) Description 04/14/2024 11:00 AM EST Imaging Radiology [address] [place] [phone] 04/16/2024 9:00 AM EST Office Visit Family Medicine [address] [place] [address] Virgen Woodard MD [address] [place] [address] [place] [phone] 07/13/2024 10:00 AM EDT Nurse Only Ancillary [address] [place] [address] Kathie, Nurse Annual Wellness [address] [place] [address] [place] [address] Scheduled Orders Name Type Priority Associated Diagnoses Orde r Schedule VITAMIN B12 Lab Routine Routine medical exam Encounter for long-term (current) use of medications Expected: 04/01/2024 (Approximate), Expires: 03/18/2025 Scheduled Procedures Name Priority Associated Diagnoses Date/Ti [...] (2 - Td or Tdap) 03/07/2017 03/07/2007 HbA1c 03/13/2024 09/11/2023, 05/06, 01/17/2023, Additional history exists Mammogram 04/10/2024 04/10/2023, 10/2022, 04/05/2022, Additional history exists Albumin/Creatinine Ratio 05/23/20242 024, 01/17/2023, 03/28/2022, Additional history exists Adult Wellness Visit 07/11/2024 07/12/2023, 07/11/19 Depression Screening 07/11/2024 07/12/2023 Diabetic Foot Exam 07/11/2024 07/12/2023, 1 05/28/2021, 04/07/2009, Additional history exists Diabetic Eye Exam 08/15/2024 08/16/2023, , 08/14/2022, Additional history exists GFR 09/10/2024 09/11/2023, 05/06, 01/17/2023, Additional history exists Colonoscopy 03/09/2027 03/09/2022, 08/2021, 06/09/2015, Additional history exists Colorectal Cancer Screening 03/09/2027 DXA Scan 03/28/2027 03/28/2020, 10/2016, 03/10/2013 Lipid Panel 01/18/2028 01/17/2023, 03/07, 07/02/2017, Additional history exists RETIRED - COLONOSCOPY-EVERY 5 [...] of this encounter Visit Diagnoses Diagnosis Routine medical exam- Primary Routine general medical examination at a health care facility Type 2 diabetes mellitus with hemoglobin A1c goal of less than 7.5% ([facility]) Encounter for long-term (current) use of medications Encounter for long-term (current) use of other medications documented in this encounter Care Teams Dolphin Trainer Relationship Specialty Start Date End Date Virgen Woodard MD [address] [place] [address] [place] [address] PCP - General Family Medicine 03/28/22 documented as of this encounter
--- OUTSIDE RECORDS SUMMARY | 2024-08-04 17:22 | External Medical Summary | Summary of Care ---
Author Name Unknown Organization [facility] Address [address] [facility] [place] [address] Phone [phone] Care Team Providers Care Environmental Specialist Name Role Phone Virgen Woodard MD Primary Care Provide r Reason for Visit * Reason Comments eRx-Medication Refill Encounter Details Date Type Department Care Team (Late st Contact Info) Description 04/10/2024 Refill Family Medicine [facility] [place] [place] [phone] Virgen Woodard MD [address] [place] [address] [place] [phone] History of CVA (cerebrovascular accident) without residual deficits Allergies Active Allergy Reactions Criticality Noted Date Comments Amoxicillin 04/10/2004 Facial swelling Ciprofloxacin 09/14/2008 Abdominal cramps Felodipine Cr 11/17/2008 RED ALL OVER Hydralazine Hcl 11/29/2008 rash Sulfa Antibiotics 10/15/2000 Septra gave bad lower abd. cramps documented as of this encounter (statuses as of 04/11/2024) Medications MULTI-DAY TABS OR one a day [...] ceylon cinnamon 2500mg daily "nature's truth". Active RadiumOneTouch Delica Lancets 33G Use to test blood sugars once daily DxE11.9 100 Each 3 02/13/20 23 Active OneTouch Verio Flex System Device Use to test blood sugars once daily DxE11.9 1 Each 02/13/20 Active RadiumOneTouch Verio In Vitro Strip (Glucose Blood) Use to test blood sugars once daily DxE11.9 100 Strip 3 04/11/20 23 Active SM [place]-3 Oral Capsule Take by mouth. Active Metoprolol [...] awake.. 7.5 mL 1 01/22/20 24 Active metFORMIN HCl 1000 MG Oral Tablet [...] 4 6:38 PM EST 04/03/20 24 Active Azithromycin 250 MG Oral Tablet (Zithromax)Indicat ions:Acute non-recurrent maxillary sinusitis,Bronchit is Take 2 tabs by mouth on the first day, then 1 tab daily on days two through five 6 Tablet 04/06/20 24 024 Active Atorvastatin Calcium 10 MG Oral Tablet (Lipitor)Indicatio ns:History of CVA (cerebrovascular accident) without residual deficits TAKE 1 TABLET BY MOUTH EVERY OTHER DAY 45 Tablet 1 04/11/20 24 Active Atorvastatin Calcium 10 MG Oral Tablet (Lipitor)Indicatio ns:History of CVA (cerebrovascular accident) without residual deficits TAKE 1 TABLET BY MOUTH EVERY OTHER DAY 45 Tablet 01/09/20 24 024 Discontinued documented as of this encounter (statuses as of 04/11/2024) Active Problems Problem Noted Date Diagnosed Date [...] as of this encounter (statuses as of 04/11/2024) Resolved Problems Problem Noted Date Diagnosed Date [...] as of this encounter (statuses as of 04/11/2024) Immunizations Name Administration Dates Next Due COVID-19 [...] 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 Not on file Not on file documented as of this encounter Miscellaneous Notes * Telephone Encounter - Bruno Do [facility] - 04/11/2024 5:36 PM ESTSigned Prescriptions: Disp Refills Atorvastatin Calcium 10 MG Oral Tablet (Li*45 Tab*1 Sig: TAKE 1 TABLET BY MOUTH EVERY OTHER DAYAuthorizing Provider: Edith WOODARD User: BRUNO DO documented in this encounter Plan of Treatment Upcoming Encounters Date Type Department Care Team (Late st Contact Info) Description 04/14/2024 11:00 AM EST Imaging Radiology [address] [place] [address] 04/16/2024 9:00 AM EST Office Visit Family Medicine [address] [place] [phone] Virgen Woodard MD [address] [place] [address] [place] [address] 07/13/2024 10:00 AM EDT Nurse Only Ancillary [address] [place] [address] [place], Nurse [address] [place] [address] Scheduled Procedures Name Priority Associated Diagnoses Date/Ti [...] 12/2023, 05/23/2023, Additional history exists Albumin/Creatinine Ratio 03/18/20252 024, 05/23/2023, 01/17/2023, Additional history exists GFR [...] as of this encounter Visit Diagnoses Diagnosis History of CVA (cerebrovascular accident) without residual deficits Transient ischemic attack (TIA), and cerebral infarction without residual deficits documented in this encounter Care Teams Environmental Specialist Relationship Specialty Start Date End Date Virgen Woodard MD [address] [place] [address] [place] [phone] PCP - General Family Medicine 03/28/22 documented as of this encounter
--- OUTSIDE RECORDS SUMMARY | 2024-08-04 17:22 | External Medical Summary | Summary of Care ---
Author Name Unknown Organization [facility] Address [address] [facility] [place] [address] Phone [phone] Care Team Providers Care Manipulative Therapy Specialist Name Role Phone Virgen Woodard MD Primary Care Provide r Reason for Visit * Reason Comments Re-Check 6 mo Encounter Details Date Type Department Care Team (Late st Contact Info) Description 04/16/2024 9:00 AM EST Office Visit Family Medicine [address] [place] [phone] Virgen Woodard MD [address] [place] [address] [place] [address] Rhinorrhea*; Type 2 diabetes mellitus with hemoglobin A1c goal of less than 7.5% ([facility]); HTN, goal below 140/90 Allergies Active Allergy Reactions Criticality Noted Date Comments Amoxicillin 04/10/2004 Facial swelling Ciprofloxacin 09/14/2008 Abdominal cramps Felodipine Cr 11/17/2008 RED ALL OVER Hydralazine Hcl 11/29/2008 rash Sulfa Antibiotics 10/15/2000 Septra gave bad lower abd. cramps documented as of this encounter (statuses as of 04/16/2024) Medications MULTI-DAY TABS OR one a day [...] ceylon cinnamon 2500mg daily "nature's truth". Active Kindred BiosciencesTouch Delica Lancets 33G Use to test blood sugars once daily DxE11.9 100 Each 3 3 Active Kindred BiosciencesTouch Verio Flex System Device Use to test blood sugars once daily DxE11.9 1 Each 3 Active [employer]red BiosciencesToK[employer] Verio In Vitro Strip (Glucose Blood) Use to test blood sugars once daily DxE11.9 100 Strip 3 3 Active SM [place]-3 Oral Capsule Take by mouth. Activ e Metoprolol Succinate ER 25 MG Oral Tablet Extended Release 24 Hour (toPROL XL)Indications:HTN , goal below 140/90 TAKE 1 TABLET BY MOUTH AT NIGHT AT BEDTIME 90 Tablet 3 01/27/2024 11:41 AM EDT 3 024 Active Empagliflozin 25 MG Oral Tablet [...] OTHER DAY 45 Tablet 1 4 Active Fluticasone Propionate 50 MCG/ACT Nasal Suspension (Flonase)Indicatio ns:Rhinorrhea Administer 1 Herlong into each nostril in the morning and 1 Herlong in the evening. Do all this for 5 days. 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 Not on file Not on file documented as of this encounter Last Filed Vital Signs Vital Sign Reading Time Taken Comments Blood Pressure 138/58 04/16/2024 8:37 AM EST Pulse 85 04/16/2024 8:37 AM EST Temperature 36 C (96.8 F) 04/16/2024 8:37 AM EST Respiratory Rate - - Oxygen Saturation 96% 04/16/2024 8:37 AM EST Inhaled Oxygen Concentration - - Weight 90.4 kg (199 lb 3.2 oz) 04/16/2024 8:37 A M EST Height - - Body Mass Index 32.15 01/22/2024 12:12 PM EDT documented in this encounter Progress Notes * Virgen Woodard MD - 04/16/2024 9:00 AM EST Subjective: HPI: Darlene Torres is a 73 year old female with hx of DMII, HTN, 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, Hepatic steatosis, IBS, DJD, Diverticulosis, Essential tremor seen for Recently treated for sinusitis - symptoms are improving - but still having intermittent WU, and rhinorrhea DMII: - recent A1C was elevated - on jardiance 25mg daily, Trulicity 3mg weekly, Metformin 1000mg BID - compliant with meds HTN: - on amlodipine 10mg daily, and losartan 100mg daily and metoprolol ER 25mg daily - at home BP: 130/80s Patient Active Problem List Diagnosis Metabolic syndrome [...] sugars once daily DxE11.9 100 Strip3 SM [place]-3 Oral Capsule Take by mouth. Metoprolol Succinate [...] mouth in the morning. 30 Tablet 5 Losartan Potassium 100 MG Oral Tablet (Cozaar) Take 1 Tablet by mouth in the morning. 90 Tablet 3 [id number] Ophthalmic Suspension Instill 1 Drop into the [...] MOUTH EVERY OTHER DAY 45 Tablet 1 Fluticasone Propionate 50 MCG/ACT Nasal Suspension (Flonase) Administer 1 Herlong into each nostril in the morning and 1 Herlong in the evening. Do all this for 5 days. 18.2 mL 0 No current facility-administered medications for this visit. Past Medical History: Diagnosis Date Abnormal involuntary [...] performed by Franca Walters DO at [facility] COLONOSCOPY, DIAGNOSTIC (RECTUM) 03/09/2022 benign adenomatous polyp, diverticulosis, repeat 5 yrs / COLONOSCOPY FLEXIBLE PROXIMAL DIAGNOSTIC performed by Franca Walters DO at [facility] CT SINUSES W WO CONTRAST 10/12/2006 mild nasal septal deviation mild chronic maxillary sinusitis CT SINUSES WO CONTRAST 07/19/2008 mild bilateral nonobstructing disease, nasal septum deviated to right ECHO,TTE W/O SPECTRAL + [place] [id number] - REMOVE TONSILS 20's MAMMOGRAM - 1 BREAST 03/24/2007 left breast, category 1 stable MAMMOGRAM SCREENING-BILATERAL 07/01/2006 left category 0, right category 1 MAMMOGRAM SCREENING-BILATERAL 06/22/2008 scattered fibroglandular densities, category 1 normal MRI FOOT W WO CONTRAST 05/10/2008 focal bone marrow edema/enthesopathy at attachment of right paroneus brevis tendon on base of [id number] metatarsal NM GASTRIC EMPTYING STUDY SOLID 09/30/2009 normal halftime of gastric emptying of 81 minutes REMOVE GALLBLADDER Cholecystectomy SIGMOIDOSCOPY, DIAGNOSTIC 2004 diverticulosis TOTAL ABD HYSTERECTOMY W/WO REMOVAL OF TUBE(S) 1969's endometriosis VASC DUPLEX VENOUS LE UNILAT 02/16/2008 normal left leg Review of patient's allergies indicates: Allergen Reactions Amoxicillin Facial swelling Ciprofloxacin Abdominal cramps Felodipine Cr RED ALL OVER Hydralazine Hcl rash Sulfa Antibiotics Septra gave bad lower abd. cramps Family History Problem Relation Name Age of Onset Cancer Mother tonsillar cancer Other (bowel problem) Father bowel problem, not cancer Cancer Grandmother (Maternal) breast No Known Problems Daughter Diabetes Son Cancer Aunt (Maternal) 84 breast Breast Cancer Aunt (Maternal) Social History Tobacco Use Smoking status: Never Smokeless tobacco: Never Substance Use Topics Alcohol use: No Vaping/E-Cigarette Use Vaping/E-Cigarette Use Never User Vaping/E-Cigarette Substances Vaping/E-Cigarette Devices ROS: -Per HPI OBJECTIVE: BP 138/58 | Pulse 85 | Temp 96.8 F (36 C) | Wt 199 lb 3.2 oz (90.4 kg) | SpO2 96% | BMI 32.15 kg/m | BSA 2.05 m PHYSICAL EXAM: Vitals are reviewed General:. NAD, well developed HEENT:. Normal Conjunctiva, EOMI Cardiac:.systolic murmur, Normal S1, S2 Lungs:. CTA, no wheezing or crackles MSK:. Normal gait Psych:. AAOx3, normal affect ASSESSMENT/PLAN: Discussed recently elevated A1C - for now continue the current meds - will repeat the A1c in 2 months Fluids behind R TM - will do flonase Rhinorrhea (Primary) - Fluticasone Propionate 50 MCG/ACT Nasal Suspension (Flonase); Administer 1 Herlong into each nostril in the morning and 1 Herlong in the evening. Do all this for 5 days. Type 2 diabetes mellitus with hemoglobin A1c goal of less than 7.5% ([facility]) - BASIC METABOLIC PANEL; Future; Expected date: 06/08/2024 - HEMOGLOBIN A1C; Future; Expected date: 06/08/2024 HTN, goal below 140/90 - BASIC METABOLIC PANEL; Future; Expected date: 06/08/2024 Follow Up: Return in about 6 months (around 10/15/2024). Virgen Woodard MD Family medicine, [address] [phone] documented in this encounter Nursing Notes * Yue Cross CMA - 04/16/2024 8:36 AM EST She is here for a 6 mo recheck today. She is doing well but having dizzy spells this morning. documented in this encounter Plan of Treatment Upcoming Encounters Date Type Department Care Team (Late st Contact Info) Description 07/13/2024 10:00 AM EDT Nurse Only Ancillary [address] [place] [address] Kathie, Nurse [address] [place] [address] 10/16/2024 10:40 AM EDT Office Visit Family Medicine [address] [phone] Bernie Stokes CRNP [address] [place] [address] [place] [phone] 04/16/2025 10:40 AM EST Office [address] [place] [phone] Virgen Woodard MD [address] [place] [address] [place] [address] Scheduled Orders Name Type Priority Associated Diagnoses Orde r Schedule BASIC METABOLIC PANEL Lab Routine Type 2 diabetes mellitus with hemoglobin A1c goal of less than 7.5% (HCC) HTN, goal below 140/90 Expected: 06/08/2024 (Approximate), Expires: 04/16/2025 HEMOGLOBIN A1C Lab Routine Type 2 diabetes mellitus with hemoglobin A1c goal of less than 7.5% (HCC) Expected: 06/08/2024 (Approximate), Expires: 04/16/2025 Scheduled Procedures Name Priority Associated Diagnoses Date/Ti [...] (2 - Td or Tdap) 03/07/2017 03/07/2007 *NEPHROLOGY REFERRAL DUE TO RESISTANT HTN 04/09/2024 Adult Wellness Visit 07/11/2024 07/12/2023, 07/11/19 23 Depression Screening 07/11/2024 07/12/2023 Diabetic Foot Exam [...] as of this encounter Visit Diagnoses Diagnosis Rhinorrhea- Primary Other diseases of nasal cavity and sinuses Type 2 diabetes mellitus with hemoglobin A1c goal of less than 7.5% (HCC) HTN, goal below 140/90 Unspecified essential hypertension documented in this encounter Care Teams Manipulative Therapy Specialist Relationship Specialty Start Date End Date Virgen Woodard MD [address] [place] [address] [place] [address] PCP - General Family Medicine 03/28/22 documented as of this encounter
--- OUTSIDE RECORDS SUMMARY | 2024-08-04 17:22 | External Medical Summary | Summary of Care ---
Author Name Unknown Organization [facility] Address [address] [facility] [place] [address] Phone [phone] Care Team Providers Care Hogshead Hooper Name Role Phone Virgen Woodard MD Primary Care Provide r Reason for Visit * Reason Onset Date Comments Health Maintenance 06/09/2024 Encounter Details Date Type Department Care Team (Late st Contact Info) Description 06/09/2024 Telephone Family [address] [place] [phone] Virgen Woodard MD [address] [place] [address] [place] [phone] Health Maintenance Allergies Active Allergy Reactions Criticality Noted Date Comments Amoxicillin 04/10/2004 Facial swelling Ciprofloxacin 09/14/2008 Abdominal cramps Felodipine Cr 11/17/2008 RED ALL OVER Hydralazine Hcl 11/29/2008 rash Sulfa Antibiotics 10/15/2000 Septra gave bad lower abd. cramps documented as of this encounter (statuses as of 06/09/2024) Medications MULTI-DAY TABS OR one a day [...] ceylon cinnamon 2500mg daily "nature's truth". Active The [employer] Student[employer] Delica Lancets 33G Use to test blood sugars once daily DxE11.9 100 Each 3 3 Active OneTouch Verio Flex System Device Use to test blood sugars once daily DxE11.9 1 Each 3 Active OneTouch Verio In Vitro Strip (Glucose Blood) Use to test blood sugars once daily DxE11.9 100 Strip 3 3 Active SM [place]-3 Oral Capsule Take by mouth. Active Empagliflozin [...] Tablet 3 04/25/2024 1:43 PM EST 4 04/23/20 25 Active documented as of this encounter (statuses as of 06/09/2024) Active Problems Problem Noted Date Diagnosed Date [...] as of this encounter (statuses as of 06/09/2024) Resolved Problems Problem Noted Date Diagnosed Date [...] as of this encounter (statuses as of 06/09/2024) Immunizations Name Administration Dates Next Due COVID-19 [...] 07/12/2023 Does the household have a re lar source of income? 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 file Not on file documented as of this encounter Miscellaneous Notes * Telephone Encounter - Laurel Le LPN - 06/09/2024 9:33 AM EST Care Gaps Comprehensive Care Outreach Last Office/Telemedicine Visit: 04/16/2024 (in office), Visit date not found (telemedicine) Next Office Visit: 10/16/2024 Hemoglobin AIC Results: Lab Results Component Value [...] DBS-QUEST H 7.8 (H) 05/02/2020 08:23 AM BP Readings from Last 1 Encounters: 04/16/24 138/58 Reviewed Health Maintenance below: Health Maintenance Topic Date Due Hepatitis C Screening Never done Pneumococcal Vaccine: 50+ Years (2 of 2 - PCV) 05/26/2003 Hepatitis B Vaccine (1 of 3 - Risk 3-dose series) Never done DTap/Tdap Vaccines (2 - Td or Tdap) 03/07/2017 Adult Wellness Visit 07/11/2024 Diabetic Foot Exam 07/11/2024 Depression Screening 07/11/2024 Diabetic Eye Exam 08/15/2024 HbA1c 09/15/2024 Awv july already scheduled Labs may already ordered Eye may sees gurpreet Care Gap Outreach Action Taken: Outreach not indicated documented in this encounter Plan of Treatment Upcoming Encounters Date Type Department Care Team (Late st Contact Info) Description 07/13/2024 10:00 AM EDT Nurse Only Ancillary [place] [address] [place] [address] [place], Nurse [address] [place] [address] 10/16/2024 10:40 AM EDT Office Visit [address] [place] [phone] Bernie Stokes CRNP [address] [place] [address] [place] [address] 04/16/2025 10:40 AM EST Office Visit [address] [place] [phone] Virgen Woodard MD [address] [place] [address] [place] [address] Scheduled Procedures Name Priority Associated Diagnoses Date/Ti [...] filedocumented as of this encounter Care Teams Hogshead Hooper Relationship Specialty Start Date End Date Virgen Woodard MD [address] [place] [address] [place] [phone] PCP - General Family Medicine 03/28/22 documented as of this encounter
--- OUTSIDE RECORDS SUMMARY | 2024-08-04 17:22 | External Medical Summary | Summary of Care ---
Author Name Unknown Organization [facility] Address [address] [facility] [place] [address] Phone [phone] Care Team Providers Care Marker Shipments Name Role Phone Virgen Woodard MD Primary Care Provide r Encounter Details Date Type Department Care Team (Late st Contact Info) Description 05/25/2024 Population Health External Data Unspecified Department Allergies Active Allergy Reactions Criticality Noted Date Comments Amoxicillin 04/10/2004 Facial swelling Ciprofloxacin 09/14/2008 Abdominal cramps Felodipine Cr 11/17/2008 RED ALL OVER Hydralazine Hcl 11/29/2008 rash Sulfa Antibiotics 10/15/2000 Septra gave bad lower abd. cramps documented as of this encounter (statuses as of 05/25/2024) Medications MULTI-DAY TABS OR one a day [...] ceylon cinnamon 2500mg daily "nature's truth". Active OneTouch Delica Lancets 33G Use to test blood sugars once daily DxE11.9 100 Each 3 3 Active OneTouch Verio Flex System Device Use to test blood sugars once daily DxE11.9 1 Each 3 Active OneTouch Verio In Vitro Strip (Glucose Blood) Use to test blood sugars once daily DxE11.9 100 Strip 3 3 Active SM [place]-3 Oral Capsule Take by mouth. Active Empagliflozin [...] 3 04/25/2024 1:43 PM EST 4 04/23/20 Active documented as of this encounter (statuses as of 05/25/2024) Active Problems Problem Noted Date Diagnosed Date [...] as of this encounter (statuses as of 05/25/2024) Resolved Problems Problem Noted Date Diagnosed Date [...] as of this encounter (statuses as of 05/25/2024) Immunizations Name Administration Dates Next Due COVID-19 [...] No 07/12/2023 [facility] the [facility]? 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 file Not on file documented as of this encounter Plan of Treatment Upcoming Encounters Date Type Department Care Team (Late st Contact Info) Description 07/13/2024 10:00 AM EDT Nurse Only Ancillary [address] [place] [address] [place], Nurse [address] [place] [address] 10/16/2024 10:40 AM EDT Office Visit [address] [phone] Bernie Stokes CRNP [address] [place] [address] [place] [address] 04/16/2025 10:40 AM EST Office Visit [address] [place] [phone] Virgen Woodard MD [address] [place] [address] [place] [address] Scheduled Procedures Name Priority Associated Diagnoses Date/Ti [...] filedocumented as of this encounter Care Teams Marker Shipments Relationship Specialty Start Date End Date Virgen Woodard MD [address] [place] [address] [place] [address] PCP - General Family Medicine 03/28/22 documented as of this encounter
--- OUTSIDE RECORDS SUMMARY | 2024-08-04 17:23 | External Medical Summary ---
Author Name Unknown Address Unknown Organization [id number][place] [facility] [place] [address] [facility] [place] [address] Laboratory Report Ordering Provider Test Date Status CORA SOLIS 03/18/2024 09:26:23 Amberly l Observation Date Value Abnormality Reference (Units ) Status Triglyceride 03/18/2024 09:26:23 128 <=174 ( mg/dL) Final Triglyceride Reference Range s (mg/dL):
<150 Acceptable
150-174 Borderline high
175-499 High
>=500 Very high Cholesterol 03/18/2024 09:26:23 105 <200 (mg /dL) Final Total Cholesterol Reference Ranges (mg/dL):
<200 Desirable
200-239 Borderline high
>=240 High HDL 03/18/2024 09:26:23 46 Below low normal >49 (mg/dL) Final HDL Cholesterol Reference Ra nges (mg/dL):
>=60 High (Desirable)
<50 Low (Undesirable) For Females
<40 Low (Undesirable) For Males NON-HDL CHOLESTEROL 03/18/2024 09:26:23 59 <=159 (mg/dL) Final Non-HDL Cholesterol Referenc e Range (mg/dL):
<100 Target level for high risk ASCVD patient
<130 Optimal for general population
130-159 Near optimal for general population
160-189 Borderline High
190-219 High
>=220 Very High LDL, (calculated) 03/18/2024 09:26:23 33 <= 129 (mg/dL) Final LDL Cholesterol Reference Ra nges (mg/dL):
<70 Target level for high risk ASCVD patient
<100 Optimal for general population
100-129 Near optimal for general population
130-159 Borderline high
160-189 High
>=190 Very high Performing Location [place] [facility] [place] [address] [facility] [address]
--- OUTSIDE RECORDS SUMMARY | 2024-08-04 17:23 | External Medical Summary ---
Author Name Unknown Address Unknown Organization [id number]:LABORATORY [facility] [place] - [facility] [address] [place] [address] Laboratory Report Ordering Provider Test Date Status CORA SOLIS 03/18/2024 09:26:23 Amberly l Normal: <30 mg/g creatinine< br/>High: 30-300 mg/g creatinine
Very High: >300 mg/g creatinine
Nephrotic: >2200 mg/g creatinine Observation Date Value Abnormality Reference (Units) Status Albumin, Urine 03/18/2024 09:26:23 <1.20 (mg/dL) Final Creatinine, Urine 03/18/2024 09:26:23 31 (mg/dL) Final ALBUMIN/CREATININE RATIO, HIDE 03/18/2024 09:26:23 Uninterpretable Albumin/Creatinine ratio due to very low albumin and creatinine values. <30 (mg/g Creat) Final Performing Location LABORATORY [facility] [place] - [facility] [address] [facility] [id number]
--- OUTSIDE RECORDS SUMMARY | 2024-08-04 17:23 | External Medical Summary ---
Author Name Unknown Address Unknown Organization [id number][place] [facility] [place] [facility] [address] [facility] [address] Laboratory Report Ordering Provider Test Date Status CORA SOLIS 03/18/2024 09:26:23 Amberly l Observation Date Value Abnormality Reference (Units ) Status HbA1C 03/18/2024 09:26:23 8.1 Above high normal 4. 0-5.6 (%) Final The use of HbA1c to monitor glycemic status is based on normal hemoglobin and HbA composition. This test should not be used in patients with abnormal hemoglobin that affects the half life of the red blood cell or the in vivo glycation rates. Glucose, estimated average 03/18/2024 09:26:23 186 Above high normal <126 (mg/dL) Molina freeman Performing Location [place] [facility] [place] [address] [facility] [address]
--- OUTSIDE RECORDS SUMMARY | 2024-08-04 17:23 | External Medical Summary | Summary of Care ---
Author Name Unknown Organization [facility] Address [address] [facility] [place] [address] Phone [phone] Care Team Providers Care Print Journalist Name Role Phone Virgen Woodard MD Primary Care Provide r Reason for Visit * Reason Comments Outpatient Testing Encounter Details Date Type Department Care Team (Late st Contact Info) Description 03/18/2024 9:30 AM EST Laboratory Laboratory [address] [place] [phone] [place] [address] Arrived Allergies Active Allergy Reactions Criticality Noted Date [...] once daily DxE11.9 100 Each 3 02/13/20 Active OneTouch Verio Flex System Device Use to test blood sugars once daily DxE11.9 1 Each 02/13/20 Active OneTouch Verio In Vitro Strip (Glucose Blood) Use to test blood sugars once daily DxE11.9 100 Strip 3 04/11/20 23 Active SM [place]-3 Oral Capsule Take by mouth. Activ e Metoprolol Succinate ER 25 MG Oral Tablet Extended Release 24 Hour (toPROL XL)Indications:HTN , goal below 140/90 TAKE 1 TABLET BY MOUTH AT NIGHT AT BEDTIME 90 Tablet 3 01/27/2024 11:41 AM EDT 05/05/20 23 024 Active metFORMIN HCl 1000 MG Oral Tablet (Glucophage)Indica tions:Type 2 diabetes mellitus with hemoglobin A1c goal of less than 7.5% (HCC) Take 1 Tablet by mouth 2 times a day with morning and evening meals. 180 Tablet 2 05/23/19 24 Active Empagliflozin 25 MG Oral Tablet (Jardiance)Indicat ions:Type 2 diabetes mellitus with hemoglobin A1c goal of less than 7.0% (HCC) TAKE ONE TABLET BY MOUTH EVERY MORNING 100 Tablet 3 03/16/2024 12:31 PM EST 09/20/19 24 025 Active amLODIPine Besylate 10 MG Oral Tablet (Norvasc)Indicatio ns:HTN, goal below 140/90 TAKE ONE TABLET BY MOUTH EVERY EVENING AT BEDTIME 100 Tablet 1 12/27/2023 10:55 AM EDT 09/20/19 24 Active Trulicity 3 MG/0.5ML Subcutaneous Solution Pen-injector [...] 90 Tablet 3 01/14/2024 4:45 PM EDT 01/13/20 Active Neomycin-Polymyxin -HC Ophthalmic SuspensionIndicati ons:Acute conjunctivitis of right eye, unspecified acute conjunctivitis type Instill 1 Drop into the right eye in the morning and 1 Drop at noon and 1 Drop in the evening and 1 Drop before bedtime. In affected eye while awake.. 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 on file Not on file documented as of this encounter Plan of Treatment Upcoming Encounters Date Type Department Care Team (Late st Contact Info) Description 04/14/2024 11:00 AM EST Imaging Radiology [address] [place] [address] 04/16/2024 9:00 AM EST Office Visit Family Medicine [address] [place] [phone] Virgen Woodard MD [address] [place] [address] [place] [address] 07/13/2024 10:00 AM EDT Nurse Only Ancillary [address] [place] [address] [place], Nurse Annual Wellness [address] [place] [address] [place] [address] Scheduled Procedures Name Priority Associated Diagnoses Date/Ti [...] 10/2022, 04/05/2022, Additional history exists Albumin/Creatinine Ratio 05/23/2024 024, 01/17/2023, 03/28/2022, Additional history exists Adult [...] filedocumented as of this encounter Care Teams Print Journalist Relationship Specialty Start Date End Date Virgen Woodard MD [address] [place] [address] [place] [address] PCP - General Family Medicine 03/28/22 documented as of this encounter
--- OUTSIDE RECORDS SUMMARY | 2024-08-04 17:23 | External Medical Summary ---
Author Name Unknown Address Unknown Organization K01:[place] [facility] [place] [address] [place] [address] Laboratory Report Ordering Provider Test Date Status AYSHAJONO 03/18/2024 09:26:23 Final Observation Date Value Abnormality Reference (Units ) Status Vitamin B12 03/18/2024 09:26:23 [phone] (pg/mL) Final Performing Location LABORATORY [facility] - [address] [place] [address]
--- OUTSIDE RECORDS SUMMARY | 2024-08-04 17:23 | External Medical Summary | Summary of Care ---
Author Name Unknown Organization [facility] Address [address] [facility] [place] [address] Phone [phone] Care Team Providers Care Sales Planning Manager Name Role Phone Virgen Woodard MD Primary Care Provide r Reason for Visit * Reason Comments Emergency Department Follow-Up Encounter Details Date Type Department Care Team (Late st Contact Info) Description 03/18/2024 9:40 AM EST Office Visit Family Medicine [address] [place] [phone] Virgen Woodard MD [address] [place] [address] [place] [address] Type 2 diabetes mellitus with hemoglobin A1c goal of less than 7.5% ([facility]; HTN, goal below 140/90; Mixed hyperlipidemia; History of fall Allergies Active Allergy Reactions Criticality Noted Date [...] once daily DxE11.9 100 Strip 3 04/11/20 Active SM [place]-3 Oral Capsule Take by mouth. 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 on file Not on file documented as of this encounter Last Filed Vital Signs Vital Sign Reading Time Taken Comments Blood Pressure 138/60 03/18/2024 9:01 AM EST Pulse 91 03/18/2024 9:01 AM EST Temperature 35.7 C (96.2 F) 03/18/2024 9:01 AM ES T Respiratory Rate 95 03/18/2024 9:01 AM EST Oxygen Saturation - - Inhaled Oxygen Concentration - - Weight 91.1 kg (200 lb 12.8 oz) 03/18/2024 9:01 AM EST Height - - Body Mass Index 32.41 01/22/2024 12:12 PM EDT documented in this encounter Progress Notes * Virgen Woodard MD - 03/18/2024 9:11 AM EST Subjective: HPI: Darlene Torres is a 73 year old female with hx of DMII, HTN, 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, Hepatic steatosis, IBS, DJD, Diverticulosis, Essential tremor seen for Pt went to the ER on 03/08 Had a fall (mechanical fall) - had xray of the R elbow, Pelvic xray, R knee xray, R wrist xray ---- no fracture - denied any head trauma or LOC Today: - feel better - denied any N/V - still having mild soreness but improving a lot per pt - using cane to ambulate at this time DMII: - on jardiance 25mg daily, Trulicity 3mg weekly, Metformin 1000mg BID -- tolerating trulicity better Patient Active Problem List Diagnosis Metabolic syndrome [...] sugars once daily DxE11.9 100 Strip3 SM [place]-3 Oral Capsule Take by mouth. Metoprolol Succinate ER 25 MG Oral Tablet Extended Release 24 Hour (toPROL XL) TAKE 1 TABLET BY MOUTH AT NIGHT AT BEDTIME 90 Tablet 3 metFORMIN HCl 1000 MG Oral Tablet (Glucophage) Take 1 Tablet by mouth 2 times a day with morning and evening meals. 180 Tablet 2 Empagliflozin 25 MG Oral Tablet (Jardiance) TAKE ONE TABLET BY MOUTH EVERY MORNING 100 Tablet 3 amLODIPine Besylate 10 MG Oral Tablet (Norvasc) TAKE ONE TABLET BY MOUTH EVERY EVENING AT BEDTIME 100 Tablet 1 Trulicity 3 MG/0.5ML Subcutaneous Solution Pen-injector (Dulaglutide) [...] mouth in the morning. 90 Tablet 3 Luxbhexr-Iskvknqiv-AL Ophthalmic Suspension Instill 1 Drop into the right eye in the morning and 1 Drop at noon and 1 Drop in the evening and 1 Drop before bedtime. In affected eye while awake.. (Patient not taking: Reported on 03/18/2024) 7.5 mL 1 No current facility-administered medications for this visit. [...] performed by Franca Walters DO at [facility] COLONOSCOPY, DIAGNOSTIC (RECTUM) 03/09/2022 benign adenomatous polyp, diverticulosis, repeat 5 yrs / COLONOSCOPY FLEXIBLE PROXIMAL DIAGNOSTIC performed by Franca Walters DO at [facility] CT SINUSES W WO CONTRAST 10/12/2006 mild nasal septal deviation mild chronic maxillary sinusitis CT SINUSES WO CONTRAST 07/19/2008 mild bilateral nonobstructing disease, nasal septum deviated to right ECHO,TTE W/O SPECTRAL + [place] [id number] - REMOVE TONSILS 20's MAMMOGRAM - 1 BREAST 03/24/2007 left breast, category 1 stable MAMMOGRAM SCREENING-BILATERAL 07/01/2006 left category 0, right category 1 MAMMOGRAM SCREENING-BILATERAL 06/22/2008 scattered fibroglandular densities, category 1 normal MRI FOOT W WO CONTRAST 05/10/2008 focal bone marrow edema/enthesopathy at attachment of right paroneus brevis tendon on base of gaetx8ep metatarsal NM GASTRIC EMPTYING STUDY SOLID 09/30/2009 [...] Vaping/E-Cigarette Devices ROS: -Per HPI OBJECTIVE: BP 138/60 | Pulse 91 | Temp 35.7 C (96.2 F) | Resp 95 | Wt 91.1 kg (200 lb 12.8 oz) | BMI 32.41kg/m | BSA 2.06 m PHYSICAL EXAM: Vitals are reviewed General:. NAD, well developed HEENT:. Normal Conjunctiva, EOMI Cardiac:.systolic murmur, Normal S1, S2 Lungs:. CTA, no wheezing or crackles MSK:.bruising near the R wrist: normal rom but mild TTP Psych:. AAOx3, normal affect ASSESSMENT/PLAN: Labs today Type 2 diabetes mellitus with hemoglobin A1c goal of less than 7.5% ([facility]) (Primary) - HEMOGLOBIN A1C - BASIC METABOLIC PANEL - ALBUMIN / CREATININE RATIO, URINE HTN, goal below 140/90 - BASIC METABOLIC PANEL Mixed hyperlipidemia - LIPID PANEL WITHOUT DIRECT LDL History of fall - pt is recovering well - denied any worsening symptoms Follow Up: Return if symptoms worsen or fail to improve. I spent a total of 30-39 minutes (exact time 33 mins) on the date of service in preparation, delivery, and documentation of the care provided to Darlene Torres excluding any time spent in the performance of separately billed services or time spent by another provider/QHP. Virgen Woodard MD Family medicine, [address] [address] documented in this encounter Nursing Notes * Yue Cross CMA - 03/18/2024 8:59 AM EST She is here for a follow up from the ER. She was in the [facility] ED on 03/08 for a fall. She is getting better slow; still sore. documented in this encounter Plan of Treatment Upcoming Encounters Date Type Department Care Team (Late st Contact Info) Description 04/14/2024 11:00 AM EST Imaging Radiology [address] [place] [address] 04/16/2024 9:00 AM EST Office Visit Family Medicine [address] [phone] Virgen Woodard MD [address] [place] [address] [place] [address] 07/13/2024 10:00 AM EDT Nurse Only Ancillary [address] [place] [address] [place], Nurse Annual Wellness [address] [place] [address] [place] [address] Pending Results Name Type Priority Associated Diagnoses Date /Time HEMOGLOBIN A1C Lab Routine Type 2 diabetes mellitus with hemoglobin A1c goal of less than 7.5% (HCC) 03/18/2024 9:26 AM EST LIPID PANEL WITHOUT DIRECT LDL Lab Routine Mixed hyperlipidemia 03/18/2024 9:26 AM EST BASIC METABOLIC PANEL Lab Routine Type 2 diabetes mellitus with hemoglobin A1c goal of less than 7.5% (HCC) HTN, goal below 140/90 03/18/2024 9:26 AM EST ALBUMIN / CREATININE RATIO, URINE Lab Routine Type 2 diabetes mellitus with hemoglobin A1c goal of less than 7.5% (HCC) 03/18/2024 9:26 AM EST Scheduled Procedures Name Priority Associated Diagnoses Date/Ti [...] 01/17/2023, Additional history exists Colonoscopy 03/09/2027 03/09/2022, 1108/2021, 06/09/2015, Additional history exists Colorectal Cancer Screening 03/09/2027 DXA Scan 03/28/2027 03/28/2020, 12/0 10/2016, 03/10/2013 Lipid Panel 01/18/2028 01/17/2023, 03/07, [...] hemoglobin A1c goal of less than 7.5% ([facility])- Primary HTN, goal below 140/90 Unspecified essential hypertension Mixed hyperlipidemia History of fall Personal history of fall documented in this encounter Care Teams Sales Planning Manager Relationship Specialty Start Date End Date Virgen Woodard MD [address] [place] [address] [place] [address] PCP - General Family Medicine 03/28/22 documented as of this encounter
--- OUTSIDE RECORDS SUMMARY | 2024-08-04 17:23 | External Medical Summary ---
Author Name Unknown Address Unknown Organization K01:[facility]ORY [facility] [place] - [address] [place] [address] Laboratory Report Ordering Provider Test Date Status CORA SOLIS 03/18/2024 09:26:23 Amberly l Observation Date Value Abnormality Reference (Units ) Status BUN 03/18/2024 09:26:23 16 6-20 (mg/dL) Final Creatinine 03/18/2024 09:26:23 0.7 0.5-1.0 (mg/dL) Final Glomerular filtration rate/1.73 sq M.predicted [Volume Rate/Area] in Serum, Plasma or Blood by Creatinine-based formula (CKD-EPI) 03/18/2024 09:26:23 >90 >=60 (mL/min) Final eGFR is calculated based on the CKD-EPI 2020 equation. Sodium 03/18/2024 09:26:23 137 135-146 (m mol/L) Final Potassium 03/18/2024 09:26:23 4.9 3.5-5.1 (m mol/L) Final Cl 03/18/2024 09:26:23 100 98-107 (mm ol/L) Final CO2 03/18/2024 09:26:23 22 22-32 (mmo l/L) Final Anion gap 03/18/2024 09:26:23 15 7-15 (mmol /L) Final Glucose 03/18/2024 09:26:23 336 Above high normal 70 -120 (mg/dL) Final Calcium 03/18/2024 09:26:23 9.6 8.4-10.2 ( mg/dL) Final Performing Location LABORATORY [facility] [place] - [address] [place] [address]
[2024-08-04] MEDS ORDERED: MECLIZINE HCL 25 MG TAB PO PRN (17:37)
[2024-08-04] MEDS: INSULIN ASPART PER UNIT CHARGE SC SCH (18:06)
[2024-08-04] MEDS: amLODIPine BESYLATE 5 MG TAB PO SCH (21:33)
[2024-08-04] MEDS: HEPARIN SOD 5,000 UNIT/0.5 ML VIAL SQ SCH (22:16)
--- NOTE | 2024-08-05 01:37 | Magnetic Resonance Report ---
Exam(s): MRI HEAD Without Contrast EXAM: MR Head Without Intravenous Contrast CLINICAL HISTORY: vertigo, elevated BP. TECHNIQUE: Magnetic resonance images of the head/brain without intravenous contrast in multiple planes. COMPARISON: No relevant prior studies available. FINDINGS: Brain: Diffusion-weighted imaging is negative for acute or subacute infarct. There are a few punctate areas of abnormal T2 signal in the deep cerebral white matter most consistent with mild small vessel ischemic/degenerative changes. The cerebral and cerebellar sulci are mildly prominent consistent with mild brain atrophy. No intracranial hemorrhage. No segment mass-effect. Brain: Normal midline structures. Ventricles: Unremarkable. No ventriculomegaly. Bones/joints: No acute osseous abnormality. Sinuses: Unremarkable as visualized. No acute sinusitis. Mastoid air cells: Unremarkable as visualized. No mastoid effusion. Orbits: Unremarkable as visualized. IMPRESSION: No evidence of acute or subacute infarct. Electronically signed by: Calos Wilson MD 08/05/24 01:36 AM
[2024-08-05 06:28] LABS: Hemoglobin 14.7 g/dl (12.0-16.0); Mean Corpuscular Hemoglobin 31.7 pg (25.0-34.0); Mean Corpuscular Hgb Conc 34.2 g/dL (32.0-36.0); Mean Corpuscular Volume 92.9 fL (80.0-100.0); Mean Platelet Volume 9.5 fL (9.4-12.4); Platelet Count 186 K/uL (130-400); RDW Coefficient of Variation 13.2 % (11.5-14.5); RDW Standard Deviation 45.1 fL (36.4-46.3); Red Blood Count 4.63 M/uL (4.20-5.40); White Blood Count 8.22 K/ul (4.8-10.8)
[2024-08-05 06:50] LABS: BUN Creatinine Ratio 23.1 (10-20); Calcium 8.8 mg/dl (8.6-10.3); Chol HDL Ratio 2.1 (0-5); Creatinine Clr Calc Pharmacy 70.4 ml/min; Potassium 4.3 mmol/L (3.5-5.1)
[2024-08-05 07:21] VITALS: RESP 18
--- NOTE | 2024-08-05 08:26 | Electrocardiogram Report ---
Test Reason : Blood Pressure : */* mmHG Vent. Rate : 89 BPM Atrial Rate : 89 BPM P-R Int : 144 ms QRS Dur : 86 ms QT Int : 374 ms P-R-T Axes : 73 49 64 degrees QTcB Int : 455 ms Normal sinus rhythm Normal ECG When compared with ECG of 13-Apr-2020 10:30, No significant change was found Confirmed by Michel Mariano ([id number]) on 08/05/2024 8:26:38 AM Referred By: REFERRED SELF Confirmed By: Michel Mariano
[2024-08-05] MEDS: ATORVASTATIN 10 MG TAB PO SCH (08:31)
[2024-08-05] MEDS: ASPIRIN 81 MG ECTAB PO SCH (08:31)
[2024-08-05] MEDS: METOPROLOL SUCC 25MG EXT REL TAB PO SCH (08:32)
[2024-08-05] MEDS: LOSARTAN POTASSIUM 50 MG TAB PO SCH (08:32)
[2024-08-05] MEDS: MULTIVITAMIN TAB PO SCH (08:32)
[2024-08-05 10:19] LABS: Estimated Average Glucose 180 mg/dl; Hemoglobin A1C 7.9 % (4.5-5.6)
[2024-08-05 11:48] VITALS: PULSE 85; TEMP 98.1
--- NOTE | 2024-08-05 12:00 | Hospitalist Progress Note ---
Date of Service August 05, 2024 Assessment & Plan (1) Vertigo: (2) Hypertensive urgency: Plan: per previous hospitalist notes with addendum: This is a 74yo F with a PMH of DM II, HTN, history of CVA and other medical problems listed below who presents with vertigo that started this AM. Vertigo symptoms improved since arrival but initial BP elevated at 205/85 despite taking PO Toprol and losartan this AM Remote h/o CVA 20+ years ago without residual deficits Afebrile, labwork essentially unremarkable except for elevated BSG 202, high sensitivity troponin within normal limits CTA head with no acute intracranial findings. No intracranial vessel occlusion. No intracranial aneurysm. CTA neck with no stenosis or dissection within the bilateral common carotid, cervical internal carotid or vertebral arteries. 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 Dominant, patent right vertebral artery. Obtain MRI brain, echo with bubble study for further stroke evaluation Neuro checks, PT/OT/speech evaluations Continue aspirin and statin - consider increasing statin dose Given 10mg IV labetalol in ED, which improved BP to 160/75 Continue home Toprol, losartan, amlodipine HS and monitor closely / Brain MRI: No evidence of acute or subacute infarct. Echo: EF 60-65%, gr1 diastolic dysfunction, no significant valvular pathology has history of CVA, already on ASA, Statin possible TIA given presentation vs. BPPV will consult Neurology service (3) Metabolic syndrome: (4) DM (diabetes mellitus), type 2: Plan: A1c 8.1 in Mar 2024, repeat in AM Hold home agents SSI while in-patient BSG AC HS 08/05 a1c 7.9 Further work up, management, and ff up as outpatient (5) Fatty liver: Plan: Liver enzymes all WNL. Continue monitoring with PCP DVT Ppx: SQ heparin Code status: FULL PCP: Cattoi Dispo: possible d/c today after evaluation by Neurlogy service Admission and Anticipated Discharge Date Admission Date: August 04, 2024 Subjective ff up for dizziness episode, etc seen resting in chair, sitting up in good spirits states her dizziness is mostly resolved able to ambulate in the room with no problems no chest pain, dyspnea, palpitations, dizziness denies problems with hearing- tinnitus, discharge, etc no headache no other symptoms Review of Systems Review of Systems: all noted and negative except for above Physical Exam Physical Exam: General- oriented x 3, not in distress, speaks in sentences with no effort or accessory muscle use Eyes- anicteric Neck- no JVD Lungs- clear breath sounds bilaterally, no rales/wheezes Heart- normal rate, regular rhythm; no murmurs Abdomen- normal bowel sounds, nondistended, soft, nontender Extremities- no pretibial edema, no calf tenderness Neuro- alert, oriented x 3; no gross focal neurologic deficits Skin- warm & dry Results & Data Results & Data Vital Signs (Past 12 Hours) Vital Signs Temp Pulse Pulse Resp BP Pulse Ox O2 Del Method 08/05/24 11:47 36.7 C 85 18 143/65 H 94 Room Air 08/05/24 07:21 36.5 C 79 18 152/79 H 94 Room Air 08/05/24 02:53 36.5 C 77 20 149/73 H 97 Room Air 08/04/24 23:56 74 all noted and reviewed including below
[2024-08-05 15:11] VITALS: O2SAT 97
--- NOTE | 2024-08-05 15:47 | Neurology Consultation ---
Date of Consultation August 05, 2024 Assessment & Plan (1) Vertigo: Plan Suspect BPPV with improved symptoms. MRI of the brain shows no acute intercranial abnormality no evidence of a stroke. CTA shows scattered athero with no significant stenosis. Okay to discharge from neurology standpoint Telehealth Consultation Telehealth Information Telehealth Information: I performed this visit using a real-time telehealth connection between my location and the patients location ([facility]). After connecting through interactive tele-video, patient was identified by name and date of and/or wristband check.Patient (or authorized healthcare account executive sales representative) was informed that this was a telemedicine visit and it was being conducted confidentially over secure lines. My office door was closed and no one else was present in the room with me.Patient (or authorized healthcare account executive sales representative) provided consent to proceed with the visit, expressed an understanding of privacy and security of the telemedicine visit, and gave permission to have a hospital account executive sales representative in the room in order to assist with the visit and to conduct portions of the visit, as needed. I informed the patient (or authorized healthcare account executive sales representative) that I reviewed their record and presented the opportunity for them to ask any questions regarding the visit today. The patient agreed to participate. History of Present Illness Reason for Consultation: vertigo Requesting Physician: Melo Willard MD Attending Physician: Melo Willard MD History of Present Illness Darlene Montague is a 74-year-old female patient with PMH of type II DM, HTN, history of prior stroke about 20 years ago.Hx of BPPV also long time ago who presented to the hospital. The patient woke up in the morning yesterday and tried to get out of bed she needs what works and she had an episode of room spinning sensation that lasted for a minute, she laid back on her bed and her symptoms improved. She denies any double vision slurred speech numbness or weakness. There was no loss of consciousness. The events did not happen again. She denies any recent illnesses or further neurological complaints. Allergies Allergy/AdvReac Type Severity Reaction Status Date / Time Cipro Allergy Intermediate UNKNOWN Verified 04/09/12 10:34 ciprofloxacin Allergy Intermediate Rash Verified 04/13/20 11:04 felodipine Allergy Intermediate HOT FLASHES Verified 04/13/20 11:04 hydralazine Allergy Intermediate HOT FLASHES Verified 04/13/20 11:04 Penicillins Allergy Intermediate Rash Verified 04/13/20 11:04 Sulfa (Sulfonamide Allergy Intermediate Rash Verified 04/13/20 11:04 Antibiotics) amoxicillin Allergy Verified 04/18/20 10:08 simvastatin Allergy Rash Unverified 04/13/20 11:04 Home Medications Medication Instructions Recorded Confirmed Type amlodipine 10 mg tablet 10 mg PO HS 06/11/18 08/04/24 History empagliflozin 25 mg tablet 25 mg PO QAM 06/11/18 08/04/24 History (Jardiance) losartan 100 mg tablet 100 mg PO QAM 06/11/18 08/04/24 History metformin 500 mg tablet 1,000 mg PO BIDM 06/11/18 08/04/24 History Solvang Xl 2 cap PO QAM 10/10/19 08/04/24 History yairvqko-xvel-jlkqc acid 200 1 tab PO QAM 10/10/19 08/04/24 History mcg-herbal no.293 37.5 mg chewable tablet (Alive Women's Gummy Vitamin) aspirin 81 mg tablet,delayed 81 mg PO QAM 04/13/20 08/04/24 History release diclofenac sodium 1 % topical gel 2 g topical DIRECTED PRN joint 04/13/20 08/04/24 History pain atorvastatin 10 mg tablet 10 mg PO .Q OTHER DAY 08/04/24 08/04/24 History dulaglutide 3 mg/0.5 mL 3 mg subcut WK 08/04/24 08/04/24 History subcutaneous pen injector (Trulicity) metoprolol succinate 25 mg 25 mg PO DAILY 08/04/24 08/04/24 History tablet,extended release 24 hr Patient History Medical History (Updated 08/04/24 @ 14:59 by Santosh Dale DO) DM (diabetes mellitus), type 2 Fracture of orbital floor, blow-out, right, closed Arthritis Irritable bowel syndrome Obesity Ovarian dysfunction Carpal tunnel syndrome CRP elevated Fatty liver Diverticulosis of colon Metabolic syndrome Arterial ischemic stroke, chronic Limb pain Liver function test abnormality (04/09/12) Near syncope (04/09/12) Neck pain Transient ischemic attack Hypertension High cholesterol No significant family history No significant medical problems Surgical History H/O: hysterectomy (04/09/12) Hx of tonsillectomy (04/09/12) S/P cholecystectomy S/P hysterectomy Family History Aunt Breast cancer Diabetes Mother Cancer Social History Smoking Status: Never smoker Second Hand Exposure: No; Do You Dip or Chew Tobacco: No; Tobacco Cessation Education Requested by Patient: No Hx Alcohol Use: No Hx Substance Use: No Preferred Language: Yoruba Communication Ability: Effective Boiler Installer Required: No Beliefs That Will Affect Care: None marital status: Current Living Situation: Spouse Other Information That Helps Us Care for You: No Feels Safe at Home: Yes Assistive Devices: Walker Review of Systems Constitutional: Patient denies weight loss, fever, chills, and night sweats Eyes: Patient denies change in vision, tearing, pain, and redness ENT: Patient denies pain, bleeding, rhinorrhea, and dysphagia Cardiovascular: Patient denies chest pain, palpitation, dyspnea at rest, and dyspnea with exertion Respiratory: Patient denies shortness of breath, cough, wheezing, and productive cough GI: Patient denies reflux, pain, constipation, and diarrhea Skin: Patient denies rash, dryness, and itching Allergies/Immune System: Patient denies rhinorrhea, seasonal allergies, reaction to current MEDS, and joint swelling Endocrine: Patient denies weight loss, weight gain, temperature intolerance, and excessive thirst Neurological: All negative unless mentioned in the HPI Physical Exam General Constitutional: Appearance normally developed Head and face: normocephalic and atraumatic Eyes: no ptosis, no anisocoria, and no dysconjugate gaze Respiratory: normal effort Cardiovascular: regular rhythm and regular rate Abdomen: non distended Skin: no rashes, lesions, or ulcers noted Psychiatric: normal judgement and insight, normal mood, and normal affect NEUROLOGIC EXAMINATION: Mental Status:alert, oriented to time, place, person, normal recent memory, normal remote memory, normal attention span, normal concentration, normal language and normal fund of knowledge Cranial Nerves: CN 2 - no visual defect on confrontation and pupils round, equal, reactive to light CN 3, 4, 6 - extra-ocular movements intact and no nystagmus CN 5 - facial sensation intact CN 7 - no facial asymmetry CN 8 - intact hearing CN 9, 10 - palate symmetric, normal gag CN 11 - good shoulder shrug CN 12 - tongue midline MOTOR: Strength was at least antigravity throughout, Pronator drift was absent and There were no abnormal movements SENSATION: intact and symmetric to pinprick, light touch, vibration and joint position GAIT: stable, no ataxia and can perform tandem walking COORDINATION: no ataxia with finger to nose testing and heel to [place] testing REFLEXES: cannot assess over telemedicine NIH Stroke Scale: 1a. Level of Consciousness: alert = 0 1b. LOC Questions: (month, age): both correct = 0 1c. LOC Commands (open and close eyes, make fist and let go using non-paretic hand): obeys both correctly = 0 2. Best Gaze (eyes open and patient follows examiner's finger or face): normal = 0 3. Visual (visual threat or finger counting in each quadrant): no loss = 0 4. Facial Palsy (show teeth, raise eye brows and squeeze eyes shut, or grimace symmetry in a comatose patient): normal = 0 5a. Motor Arm (extend arm (palms down) to 90 degrees and score drift/movement (10 seconds) - Left: no drift = 0 5b. Motor Arm: (extend arm (palms down) to 90 degrees and score drift/movement (10 seconds) - Right: no drift = 0 6a. Motor Leg (elevate leg 30 degrees and score drift/ movement (5 seconds) - Left: no drift = 0 6b. Motor Leg (elevate leg 30 degrees and score drift/ movement (5 seconds) - Right: no drift = 0 7. Limb Ataxia (finger to nose, heel down [place]): absent = 0 8. Sensory (pin prick to face, arm, trunk and leg, compare side to side): normal = 0 9. Best Language: no aphasia = 0 10. Dysarthria (evaluate speech clarity by patient repeating listed words): normal articulation = 0 11. Extinction and Inattention: no neglect = 0 Total: 0 Results & Data Vital Signs (Past 12 Hours) Vital Signs Temp Pulse Resp BP Pulse Ox O2 Del Method 08/05/24 15:06 36.7 C 85 18 169/85 H 97 Room Air 08/05/24 11:47 36.7 C 85 18 143/65 H 94 Room Air 08/05/24 07:21 36.5 C 79 18 152/79 H 94 Room Air Laboratory Results Laboratory Results - last 24 hr 08/04/24 08/04/24 08/05/24 16:42 20:40 05:50 WBC 8.22 RBC 4.63 Hgb 14.7 Hct 43.0 MCV 92.9 MCH 31.7 MCHC 34.2 RDW Std Deviation 45.1 RDW Coeff of Chaya 13.2 Plt Count 186 MPV 9.5 Sodium 139 Potassium 4.3 Chloride 107 Carbon Dioxide 26 Anion Gap 6 BUN 18 Creatinine 0.78 Est Cr Clr Drug Dosing 70.4 eGFR 79.16 BUN/Creatinine Ratio 23.1 H Glucose 134 H POC Glucose 125 H 152 H Estimat Average Glucose 180 Hemoglobin A1c 7.9 H Calcium 8.8 Triglycerides 125 Cholesterol 95 LDL Cholesterol, Calc 25 VLDL Cholesterol, Calc 25 HDL Cholesterol 45 Cholesterol/HDL Ratio 2.1 08/05/24 08/05/24 07:19 12:15 WBC RBC Hgb Hct MCV MCH MCHC RDW Std Deviation RDW Coeff of Chaya Plt Count MPV Sodium Potassium Chloride Carbon Dioxide Anion Gap BUN Creatinine Est Cr Clr Drug Dosing eGFR BUN/Creatinine Ratio Glucose POC Glucose 144 H 215 H Estimat Average Glucose Hemoglobin A1c Calcium Triglycerides Cholesterol LDL Cholesterol, Calc VLDL Cholesterol, Calc HDL Cholesterol Cholesterol/HDL Ratio Diagnostic Findings MRI of the brain done today shows no evidence of acute intracranial process no acute infarct or bleed. CTA head and neck with scattered atherosclerotic disease no significant stenosis or large vessel occlusion TTE: Left ventricular EF 60-65% left atrial size is normal no thrombus no wall motion abnormality EKG is normal sinus rhythm Medications Administered Home Medications Medication Instructions Recorded Confirmed Last Taken amlodipine 10 mg tablet 10 mg PO HS 06/11/18 08/04/24 04/12/20 empagliflozin 25 mg tablet 25 mg PO QAM 06/11/18 08/04/24 04/13/20 (Jardiance) losartan 100 mg tablet 100 mg PO QAM 06/11/18 08/04/24 04/13/20 metformin 500 mg tablet 1,000 mg PO BIDM 06/11/18 08/04/24 04/13/20 Solvang Xl 2 cap PO QAM 10/10/19 08/04/24 04/13/20 rqxxoxbz-duee-pztjg acid 200 1 tab PO QAM 10/10/19 08/04/24 04/13/20 mcg-herbal no.293 37.5 mg chewable tablet (Alive Women's Gummy Vitamin) aspirin 81 mg tablet,delayed 81 mg PO QAM 04/13/20 08/04/24 04/13/20 release diclofenac sodium 1 % topical gel 2 g topical DIRECTED PRN joint 04/13/20 08/04/24 04/12/20 pain atorvastatin 10 mg tablet 10 mg PO .Q OTHER DAY 08/04/24 08/04/24 Unknown dulaglutide 3 mg/0.5 mL 3 mg subcut WK 08/04/24 08/04/24 Unknown subcutaneous pen injector (Trulicity) metoprolol succinate 25 mg 25 mg PO DAILY 08/04/24 08/04/24 Unknown tablet,extended release 24 hr Active Medications Generic Name Dose Route Start Last Admin Trade Name Freq PRN Reason Stop Dose Admin Amlodipine Besylate 10 mg 08/04/24 21:00 08/04/24 21:33 Amlodipine Besylate 5 Mg Tab PO 09/03/24 20:59 10 mg HS MANJU Administration Aspirin 81 mg 08/05/24 09:00 08/05/24 08:31 Aspirin 81 Mg Ectab PO 09/04/24 08:59 81 mg QAM MANJU Administration Atorvastatin Calcium 10 mg 08/05/24 09:00 08/05/24 08:31 Atorvastatin 10 Mg Tab PO 09/04/24 08:59 10 mg Q2D MANJU Administration Heparin Sodium (Porcine) 5,000 units 08/04/24 22:00 08/05/24 12:01 Heparin Sod 5,000 Unit/0.5 Ml Vial SQ 09/03/24 21:59 Not Given Q8 MANJU Insulin Aspart 0 units 08/04/24 16:30 08/05/24 13:17 Insulin Aspart Per Unit Charge SC 09/03/24 16:29 6 units ACHS MANJU Administration Losartan Potassium 100 mg 08/05/24 09:00 08/05/24 08:32 Losartan Potassium 50 Mg Tab PO 09/04/24 08:59 100 mg QAM MANJU Administration Metoprolol Succinate 25 mg 08/05/24 09:00 08/05/24 08:32 Metoprolol Succ 25mg Ext Rel Tab PO 09/04/24 08:59 25 mg DAILY MANJU Administration Multivitamins 1 tab 08/05/24 09:00 08/05/24 08:32 Multivitamin Tab PO 09/04/24 08:59 [facility] [place]
[2024-08-05 16:16] VITALS: BP 151/77
--- NOTE | 2024-08-05 16:29 | Discharge Summary ---
Discharge Summary Date of Service August 05, 2024 Principal Dx & Hospital Course #1 = Principal Diagnosis (1) Vertigo: (2) Hypertensive urgency: per previous hospitalist notes with addendum: This is a 74yo F with a PMH of DM II, HTN, history of CVA and other medical problems listed below who presents with vertigo that started this AM. Vertigo symptoms improved since arrival but initial BP elevated at 205/85 despite taking PO Toprol and losartan this AM Remote h/o CVA 20+ years ago without residual deficits Afebrile, labwork essentially unremarkable except for elevated BSG 202, high sensitivity troponin within normal limits CTA head with no acute intracranial findings. No intracranial vessel occlusion. No intracranial aneurysm. CTA neck with no stenosis or dissection within the bilateral common carotid, cervical internal carotid or vertebral arteries. 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 Dominant, patent right vertebral artery. Continue aspirin and statin - consider increasing statin dose Given 10mg IV labetalol in ED, which improved BP to 160/75 Continue home Toprol, losartan, amlodipine HS and monitor closely 08/05 Brain MRI: No evidence of acute or subacute infarct. Echo: EF 60-65%, gr1 diastolic dysfunction, no significant valvular pathology has history of CVA, already on ASA, Statin possible TIA given presentation vs. BPPV will consult Neurology service Evaluated by Dr. Moreno of [facility] neurology service: "Suspect BPPV with improved symptoms. MRI of the brain shows no acute intercranial abnormality no evidence of a stroke. CTA shows scattered athero with no significant stenosis. Okay to discharge from neurology standpoint" --Continue usual aspirin, statin Blood pressure improved with continuation of outpatient blood pressure medications Monitor blood pressure closely and titrate medications accordingly (3) Metabolic syndrome: (4) DM (diabetes mellitus), type 2: A1c 8.1 in Mar 2024, repeat in AM Hold home agents SSI while in-patient BSG AC HS 08/05 a1c 7.9 Further work up, management, and ff up as outpatient (5) Fatty liver: Liver enzymes all WNL. Continue monitoring with PCP DVT Ppx: SQ heparin Code status: FULL PCP: Cattoi Dispo: Discharge to home PCP follow-up in 1 week Notes For Next Care Provider Medication Changes From Visit None Admission HPI Per Admitting Provider This is a 74yo F with a PMH of DM II, HTN, history of CVA and other medical problems listed below who presents with dizziness. She woke up with feeling of room spinning when she stood up. Had to lay back down and symptoms improved after 10 minutes. No associated N/V/abd pain. Took her BP at home after this event and BP 187/75, which is high for her. States she is compliant with BP meds and took her AM Toprol and losartan today as well as amlodipine last night. Came to ED for further evaluation. No CP, palpitations, N or V in the past few days. [place] a bit warm on Saturday but did not take her temperature and has since felt normal. Remote history of CVA 20 years ago without residual deficit. Ambulating well but does have a walker and cane at home to use as needed and lives with her . In ED, Blood pressure is elevated at 205/85 but she is otherwise hemodynamically stable and in no acute distress. Given 10mg IV Labetalol. Ambulated by nursing staff and noted to be unsteady in bathroom. Admission Exam Per Admitting Provider GENERAL APPEARANCE: AxOx4, generally well-appearing F, no acute distress. HEENT: NC, AT. MMM. EOMI, clear conjunctiva, oropharynx clear. NECK: Supple without lymphadenopathy. No stiffness or restricted ROM. HEART: Normal rate and regular rhythm, normal S1/S1, no m/r/g LUNGS: CTAB, moving air well. No crackles or wheezes are heard. ABDOMEN: Soft, nontender, nondistended with good bowel sounds heard. BACK: No CVAT, no obvious deformity. EXTREMITIES: Without cyanosis, clubbing or edema. NEUROLOGICAL: Grossly nonfocal. Alert and oriented, moving all 4 extremities. No nystagmus. CN not formally tested but appear grossly intact. Skin: Warm and dry without any rash. Discharge Exam General- oriented x 3, not in distress, speaks in sentences with no effort or accessory muscle use Eyes- anicteric Neck- no JVD Lungs- clear breath sounds bilaterally, no rales/wheezes Heart- normal rate, regular rhythm; no murmurs Abdomen- normal bowel sounds, nondistended, soft, nontender Extremities- no pretibial edema, no calf tenderness Neuro- alert, oriented x 3; no gross focal neurologic deficits Skin- warm & dry Updated Medication List Medication Instructions Recorded Confirmed Type amlodipine 10 mg tablet 10 mg PO HS 06/11/18 08/04/24 History empagliflozin 25 mg tablet 25 mg PO QAM 06/11/18 08/04/24 History (Jardiance) losartan 100 mg tablet 100 mg PO QAM 06/11/18 08/04/24 History metformin 500 mg tablet 1,000 mg PO BIDM 06/11/18 08/04/24 History [place] Xl 2 cap PO QAM 10/10/19 08/04/24 History xrflpcvp-geyl-eicce acid 200 1 tab PO QAM 10/10/19 08/04/24 History mcg-herbal no.293 37.5 mg chewable tablet (Alive Women's Gummy Vitamin) aspirin 81 mg tablet,delayed 81 mg PO QAM 04/13/20 08/04/24 History release diclofenac sodium 1 % topical gel 2 g topical DIRECTED PRN joint 04/13/20 08/04/24 History pain atorvastatin 10 mg tablet 10 mg PO .Q OTHER DAY 08/04/24 08/04/24 History dulaglutide 3 mg/0.5 mL 3 mg subcut WK 08/04/24 08/04/24 History subcutaneous pen injector (Trulicity) metoprolol succinate 25 mg 25 mg PO DAILY 08/04/24 08/04/24 History tablet,extended release 24 hr Hospital Stay Data Consultations 08/04/24 14:28 ED Decision to Admit Stat 08/05/24 11:53 Consult Neurology Routine Diagnostic Imagining Performed Laboratory Results WBC 8.22 K/ul (4.8-10.8) 08/05/24 05:50 RBC 4.63 M/uL (4.20-5.40) 08/05/24 05:50 Hgb 14.7 g/dl (12.0-16.0) 08/05/24 05:50 Hct 43.0 % (37.0-47.0) 08/05/24 05:50 MCV 92.9 fL (80.0-100.0) 08/05/24 05:50 MCH 31.7 pg (25.0-34.0) 08/05/24 05:50 MCHC 34.2 g/dL (32.0-36.0) 08/05/24 05:50 RDW Std Deviation 45.1 fL (36.4-46.3) 08/05/24 05:50 RDW Coeff of Chaya 13.2 % (11.5-14.5) 08/05/24 05:50 Plt Count 186 K/uL (130-400) 08/05/24 05:50 MPV 9.5 fL (9.4-12.4) 08/05/24 05:50 Immature Gran % (Auto) 0.3 % 08/04/24 10:49 Neut % (Auto) 69.1 % 08/04/24 10:49 Lymph % (Auto) 23.5 % 08/04/24 10:49 [place] % (Auto) 5.1 % 08/04/24 10:49 Eos % (Auto) 1.6 % 08/04/24 10:49 Baso % (Auto) 0.4 % 08/04/24 10:49 Neut # (Auto) 6.51 K/uL (1.40-6.50) H 08/04/24 10:49 Lymph # (Auto) 2.22 K/uL (1.20-3.40) 08/04/24 10:49 [place] # (Auto) 0.48 K/uL (0.11-0.59) 08/04/24 10:49 Eos # (Auto) 0.15 K/uL (0.00-0.50) 08/04/24 10:49 Baso # (Auto) 0.04 K/uL (0.00-0.20) 08/04/24 10:49 Immature Gran # (Auto) 0.03 K/uL (0.01-0.20) 08/04/24 10:49 Sodium 139 mmol/L (136-145) 08/05/24 05:50 Potassium 4.3 mmol/L (3.5-5.1) 08/05/24 05:50 Chloride 107 mmol/L (98-107) 08/05/24 05:50 Carbon Dioxide 26 mmol/L (21-32) 08/05/24 05:50 Anion Gap 6 (3-11) 08/05/24 05:50 BUN 18 mg/dl (6-23) 08/05/24 05:50 Creatinine 0.78 mg/dl (0.6-1.2) 08/05/24 05:50 Est Cr Clr Drug Dosing 70.4 ml/min 08/05/24 05:50 eGFR 79.16 08/05/24 05:50 BUN/Creatinine Ratio 23.1 (10-20) H 08/05/24 05:50 Glucose 134 mg/dl (70-99(Fasting)) H 08/05/24 05:50 POC Glucose 215 mg/dl (70-99) H 08/05/24 12:15 Estimat Average Glucose 180 mg/dl 08/05/24 05:50 Hemoglobin A1c 7.9 % (4.5-5.6) H 08/05/24 05:50 Calcium 8.8 mg/dl (8.6-10.3) 08/05/24 05:50 Total Bilirubin 0.5 mg/dl (0.2-1.0) 08/04/24 10:49 AST 16 U/L (13-39) 08/04/24 10:49 ALT 21 U/L (7-52) 08/04/24 10:49 Alkaline Phosphatase 59 U/L (34-104) 08/04/24 10:49 Troponin I High Sens < 2.3 pg/ml (0-14) 08/04/24 10:49 Total Protein 7.5 gm/dl (6.0-8.3) 08/04/24 10:49 Albumin 4.6 gm/dl (3.4-5.0) 08/04/24 10:49 Globulin 2.9 gm/dl (2.5-4.0) 08/04/24 10:49 Albumin/Globulin Ratio 1.6 (0.9-2) 08/04/24 10:49 Triglycerides 125 mg/dl (0-150) 08/05/24 05:50 Cholesterol 95 mg/dl (0-200) 08/05/24 05:50 LDL Cholesterol, Calc 25 mg/dl 08/05/24 05:50 VLDL Cholesterol, Calc 25 mg/dl (0-30) 08/05/24 05:50 HDL Cholesterol 45 mg/dl 08/05/24 05:50 Cholesterol/HDL Ratio 2.1 (0-5) 08/05/24 05:50 Lipase 31 U/L (11-82) 08/04/24 10:49 Impressions Chest X-Ray 08/04/24 10:17 XR chest 1V portable CLINICAL HISTORY: Hypertension. COMPARISON STUDY: Chest radiograph April 13, 2020. FINDINGS: Lung volumes are normal. Lungs are clear. There is no pneumothorax or pleural effusion. Cardiomegaly is unchanged. Mediastinal contours are normal. There is no evidence for pulmonary edema. IMPRESSION: No acute cardiopulmonary findings. No change in appearance of the chest. ACT 112: Negative or not required by law. Electronically signed by: Colt Frazier M.D. 08/04/2024 11:07 AM Head CTA 08/04/24 10:30 CT angio head wo/w CLINICAL HISTORY: dizzy/vertigo COMPARISON STUDY: MRI of the brain February 03, 2014. Head CT April 23, 2020. MRA of the head April 09, 2012. TECHNIQUE: Unenhanced and arterial phase imaging of the head was performed. Intravenous injection of 119 cc of Optiray 320 IV was uneventful. Sagittal and coronal reformats were viewed as well as maximal intensity projections on an independent 3-D workstation. A dose lowering technique was utilized adhering to the principles of ALARA. FINDINGS: No acute intracranial hemorrhage, midline shift or mass effect is present. Ventricular system is unremarkable. Basal cisterns are patent. There are no findings to suggest acute dural sinus thrombosis or acute territorial infarct. Bilateral M1 and M2 segments are patent. 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 There is persistence of the left posterior cerebral artery. Left vertebral artery is diminutive on a congenital basis. Basilar artery is patent. No intracranial vessel occlusion is identified. IMPRESSION: 1. No acute intracranial findings. 2. No intracranial vessel occlusion. No intracranial aneurysm. ACT 112: Negative or not required by law. Electronically signed by: Colt Frazier M.D. 08/04/2024 12:38 PM Neck CTA 08/04/24 10:30 CT ANGIOGRAPHY OF THE NECK WITH CONTRAST CLINICAL HISTORY: dizzy/vertigo COMPARISON STUDY: Carotid ultrasound November 26, 2013. Technique: CT angiography of the carotid and vertebral arteries was obtained using Optiray and 3D reconstruction on an independent workstation. NASCET criteria was utilized. Automated exposure control was utilized for the study. A dose lowering technique was utilized adhering to the principles of ALARA. Findings: Visualized portions of the lung apices are unremarkable. Is no cervical lymphadenopathy. There are no cervical spine fractures. The bilateral common carotid, cervical internal carotid and vertebral arteries are patent. The right vertebral artery is dominant. The left vertebral artery is diminutive on a congenital basis. There is mild plaque within the carotid bifurcations without stenosis. IMPRESSION: 1. No stenosis or dissection within the bilateral common carotid, cervical internal carotid or vertebral arteries. 2. 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 Dominant, patent right vertebral artery. ACT 112: Negative or not required by law. Electronically signed by: Colt Frazier M.D. 08/04/2024 12:32 PM Brain MRI 08/04/24 14:14 Exam(s): MRI HEAD Without Contrast EXAM: MR Head Without Intravenous Contrast CLINICAL HISTORY: vertigo, elevated BP. TECHNIQUE: Magnetic resonance images of the head/brain without intravenous contrast in multiple planes. COMPARISON: No relevant prior studies available. FINDINGS: Brain: Diffusion-weighted imaging is negative for acute or subacute infarct. There are a few punctate areas of abnormal T2 signal in the deep cerebral white matter most consistent with mild small vessel ischemic/degenerative changes. The cerebral and cerebellar sulci are mildly prominent consistent with mild brain atrophy. No intracranial hemorrhage. No segment mass-effect. Brain: Normal midline structures. Ventricles: Unremarkable. No ventriculomegaly. Bones/joints: No acute osseous abnormality. Sinuses: Unremarkable as visualized. No acute sinusitis. Mastoid air cells: Unremarkable as visualized. No mastoid effusion. Orbits: Unremarkable as visualized. IMPRESSION: No evidence of acute or subacute infarct. Electronically signed by: Calos Wilson MD 08/05/24 01:36 AM Pending Results Patient Have Any Pending Studies at Discharge: No Discharge Instructions Given to Patient (Per Discharging Provider) PLEASE REFER TO YOUR NEW MEDICATION LIST AND FOLLOW INSTRUCTIONS CAREFULLY. YOUR NEW MEDICATIONS INCLUDE: Meclizine-as needed for dizziness Please hold metformin to prevent kidney injury as you have just received IV contrast from your CAT scan yesterday. You can resume your metformin on Saturday, August 07, 2024. PLEASE CALL YOUR PRIMARY CARE PHYSICIAN OR RETURN TO THE ER IF WITH WORSENING OF SYMPTOMS, INCLUDING Dizziness, blurring of vision, chest pain, shortness of breath, etc FOLLOW UP WITH PRIMARY CARE PHYSICIAN In 1 week. Total Time Total Time Spent Total Time Spent (In Minutes): 45 minutes
== END 2024-08-05 17:00 | disposition home or self-care (01) | DRG 149 ==
LOC: ED 10:09 → 4W 14:19 → SUATTDRO 14:19 → 4W 15:19